=== PATIENT | male | born 1940 | race Caucasian/White ===

== ENCOUNTER 2017-02-08 22:54 | Inpatient (IN) | payer MEDICARE, MEDICAID ==
[~2017-02-08] VITALS: Ht 175.3 cm; Wt 110.2 kg
--- NOTE | 2017-02-08 22:59 | NUR ---
PATIENT BROUGHT IN BY RESCUE FROM HOME C/O SWELLING ON LEFT LOWER EXTREMITY,WEAKNESS, PT IS ALERT, ORIENTED X 4, NO RESP DISTRESS NOTED OR REPORTED UPON ASSESSMENT... MD AT BEDSIDE..
[2017-02-08] MEDS ORDERED: IV NORMAL SALINE 1000 ML BAG IV ONE (23:15)
[2017-02-08] MEDS ORDERED: VANCOMYCIN IV 1,000 MG in IV DEXTROSE 5% 250 ML IV ONE (23:15)
[2017-02-08] MEDS ORDERED: PIPERACILLIN SODIUM/TAZOBACTAM 3.375 G in IV DEXTROSE 5% 50 ML IV ONE (23:15)
[2017-02-08] MEDS ORDERED: AMIO200T2 PO (23:25)
[2017-02-08] MEDS ORDERED: FEBU40TA PO (23:25)
[2017-02-08] MEDS ORDERED: NEBI10TA2 PO (23:25)
[2017-02-08] MEDS ORDERED: INSU100V11 SUBCUT (23:25)
[2017-02-08] MEDS ORDERED: SIMV20TA6 PO (23:25)
[2017-02-08] MEDS ORDERED: APIX2.5T PO (23:25)
[2017-02-08] MEDS ORDERED: LEVO150T8 PO (23:25)
[2017-02-08] MEDS ORDERED: BLOO-140 IN (23:25)
[2017-02-08] MEDS ORDERED: FURO-151 PO (23:25)
[2017-02-08] MEDS ORDERED: CLOP75TA15 PO (23:25)
[2017-02-08] MEDS ORDERED: ASPI81TA31 PO (23:25)
[2017-02-08] MEDS ORDERED: FOLI0.8T23 PO (23:25)
[2017-02-08] MEDS ORDERED: DUTA0.5C PO (23:25)
[2017-02-08] MEDS ORDERED: AMLO5TAB2 PO (23:25)
[2017-02-08] MEDS ORDERED: PREG75CA PO (23:25)
[2017-02-08] MEDS ORDERED: LANTUS SUBCUT (23:25)
[2017-02-08] MEDS ORDERED: VALS80TA2 PO (23:25)
[2017-02-08] MEDS ORDERED: TAMS-3 PO (23:25)
[2017-02-08] MEDS ORDERED: VANCOMYCIN IV 200 ML ONE (23:34)
[2017-02-08 23:44] LABS: BASOPHILS % (AUTO) 0.5 % (0.0-2.0); EOSINOPHILS # (AUTO) 0.1 K/uL (0.0-0.7); EOSINOPHILS % (AUTO) 1.2 % (0.0-7.0); HEMATOCRIT 34.8 % (40-50); HEMOGLOBIN 10.9 G/DL (14.0-18.0); LYMPHOCYTES # (AUTO) 0.9 K/UL (0.8-4.8); LYMPHOCYTES % (AUTO) 17.7 % (20.5-51.5); MEAN CORPUSCULAR HEMOGLOBIN 28.7 UUG (27.0-31.0); MEAN CORPUSCULAR HGB CONC 31 g/dL (32.0-37.0); MONOCYTES # (AUTO) 0.6 K/UL (0.1-1.30); MONOCYTES % (AUTO) 11.9 % (0.0-11.0); NEUTROPHILS # (AUTO) 3.7 K/UL (1.8-8.9); NEUTROPHILS % (AUTO) 68.7 % (38.5-71.5); PLATELET COUNT (AUTO) 239 K/UL (150-450); RED BLOOD CELL COUNT(AUTO) 3.79 MIL/UL (4.7-6.1); WHITE BLOOD COUNT (AUTO) 5.3 K/UL (4.0-11.2)
[2017-02-08 23:53] LABS: ALANINE AMINOTRANSFERASE 29 U/L (16-63); ALKALINE PHOSPHATASE 58 U/L (50-136); ASPARTATE AMINOTRANSFERASE 22 U/L (15-37); BILIRUBIN,DIRECT < 0.1 mg/dL (0.0-0.2); BILIRUBIN,TOTAL 0.2 mg/dL (0.2-1.0); CARBON DIOXIDE 21 mmol/L (21-32); CHLORIDE 108 mmol/L (98-107); CREATININE 4.7 mg/dL (0.6-1.3); GLUCOSE 140 mg/dL (74-106); POTASSIUM 5.1 mmol/L (3.5-5.1); TOTAL PROTEIN, SERUM 7.3 g/dL (6.4-8.2); UREA NITROGEN, BLOOD 77 mg/dL (7-18)
[2017-02-09] MEDS ORDERED: MORPHINE SULFATE 2 MG/1 ML DISP.SYRIN IV PRN (01:15)
[2017-02-09] MEDS ORDERED: ONDANSETRON 4 MG/2 ML VIAL IV PRN (01:15)
[2017-02-09] MEDS ORDERED: LORAZEPAM 2 MG/1 ML VIAL IV PRN (01:15)
[2017-02-09] MEDS ORDERED: ACETAMINOPHEN 325 MG TABLET PO PRN (01:15)
[2017-02-09] MEDS ORDERED: VANCOMYCIN IV 200 ML IV ONE (01:15)
[2017-02-09] MEDS ORDERED: DEXTROSE 50% 50 ML DISP.SYRIN IV PRN (01:15)
[2017-02-09] MEDS ORDERED: PIPERACILLIN/TAZOBACTAM/D5W 50 ML IV ONE (01:18)
--- NOTE | 2017-02-09 02:00 | NUR ---
SBAR report received from CHARISSA Urbano RN.
--- NOTE | 2017-02-09 02:05 | NUR ---
Pt. admitted to TELE , under care of Dr. Gonzalez Kimbrough, Belongs List completed, pt is alert, oriented x 4, no resp distress noted or reported upon transfer assessment...
--- NOTE | 2017-02-09 03:00 | NUR ---
Admitted patient from ER via fawn, AAOx4, denies pain at thsi time. Routine admission care done. Plan of care initiated.
[2017-02-09 03:23] VITALS: BP 125/42
--- NOTE | 2017-02-09 03:30 | NUR ---
Vanco was given in ER, verified with nurse Sundeep.
[2017-02-09] MEDS: BLOOD SUGAR DIAGNOSTIC 1 EACH STRIP VI SCH ×4 (05:40→20:44)
[2017-02-09] MEDS ORDERED: MEROPENEM 1 G in IV NORMAL SALINE 100 ML IV SCH (06:00)
[2017-02-09] MEDS ORDERED: MEROPENEM 1 G VIAL IV ONE (06:12)
--- NOTE | 2017-02-09 06:38 | NUR ---
VSS. slept well. No complaint presented all night. All needs attended and met. No significant event reported all night. Continue current plan of care.
[2017-02-09 06:51] LABS: IRON, SERUM 58 ug/dL (50-175)
--- NOTE | 2017-02-09 08:00 | NUR ---
RESTING IN BED WITH EXERTIONAL SOB, ON 3L NC SATURATING 95%. AT BEDSIDE VERY SUPPORTIVE WITH CARE
[2017-02-09] MEDS ORDERED: CLOPIDOGREL 75 MG TABLET PO SCH (09:00)
[2017-02-09] MEDS ORDERED: TAMSULOSIN HCL 0.4 MG CAP.SR.24H PO SCH (09:00)
[2017-02-09] MEDS ORDERED: Medication Not On Formulary EA (Apixaban (Eliquis) 2.5 MG) PO SCH (09:00)
[2017-02-09] MEDS ORDERED: PANTOPRAZOLE SODIUM 40 MG VIAL IV SCH (09:00)
[2017-02-09] MEDS ORDERED: SIMVASTATIN 20 MG TABLET PO SCH (09:00)
[2017-02-09] MEDS ORDERED: Medication Not On Formulary EA (Pregabalin (Lyrica) 75 MG) PO SCH (09:00)
[2017-02-09] MEDS: ASPIRIN 81 MG TAB.CHEW PO SCH (09:55)
[2017-02-09] MEDS: DUTASTERIDE 0.5 MG CAPSULE PO SCH (09:55)
[2017-02-09] MEDS: FOLIC ACID/VITAMIN B COMP W-C TABLET PO SCH (09:55)
[2017-02-09] MEDS: AMIODARONE HCL 200 MG TABLET PO SCH (09:57)
[2017-02-09] MEDS: AMLODIPINE 5 MG TABLET PO SCH ×2 (09:58→16:39)
[2017-02-09] MEDS: LEVOTHYROXINE SODIUM 150 MCG TABLET PO SCH (09:59)
[2017-02-09] MEDS: PANTOPRAZOLE SODIUM 40 MG TABLET.DR PO SCH (10:01)
--- NOTE | 2017-02-09 10:30 | NUR ---
SEEN BY DR LANDAVERDE FOR NEPHRO CONSULT, SEE NOTES
[2017-02-09] MEDS ORDERED: APIXABAN 5 MG TABLET PO SCH (10:45)
[2017-02-09 10:59] LABS: CARBON DIOXIDE 19 mmol/L (21-32); CHLORIDE 111 mmol/L (98-107); CREATININE 4.1 mg/dL (0.6-1.3); GLUCOSE 146 mg/dL (74-106); POTASSIUM 4.9 mmol/L (3.5-5.1); UREA NITROGEN, BLOOD 68 mg/dL (7-18)
[2017-02-09 11:06] LABS: ALANINE AMINOTRANSFERASE 27 U/L (16-63); ALKALINE PHOSPHATASE 56 U/L (50-136); ASPARTATE AMINOTRANSFERASE 21 U/L (15-37); BILIRUBIN,TOTAL 0.2 mg/dL (0.2-1.0); CHOLESTEROL 125 mg/dL (<200); HDL CHOLESTEROL 44 mg/dL (40-60); MAGNESIUM 1.9 mg/dL (1.8-2.4); PHOSPHOROUS 4.2 mg/dL (2.5-4.9); TOTAL PROTEIN, SERUM 7.1 g/dL (6.4-8.2); TRIGLYCERIDES 164 MG/DL (30-150)
[2017-02-09 11:07] LABS: THYROID STIMULATING HORMONE 3.116 mIU/mL (0.358-3.740)
[2017-02-09 11:30] VITALS: BP 118/43
[2017-02-09] MEDS: INSULIN REGULAR, HUMAN 300 UNIT/3 ML VIAL SQ PRN ×2 (11:42→21:24)
--- NOTE | 2017-02-09 12:00 | NUR ---
CONTINUE IV ANTIBIOTIC NO ADVERSE REACTION
[2017-02-09] MEDS ORDERED: IV NS 1000 ML 1,000 ML IV PRN ×2 (12:15→19:15)
[2017-02-09 14:30] LABS: HEMATOCRIT 32.1 % (40-50); HEMOGLOBIN 10.1 G/DL (14.0-18.0)
--- NOTE | 2017-02-09 15:26 | NUR ---
CLINICAL PHARMACY NOTE: VANCOMYCIN PHARMACY TO DOSE Subjective: To start vancomycin in this 76 y/o gentleman for indication of "suspected infection." Pt is currently in ARF. Objective: height 175 cm weight 116 kg BUN 77 Scr 4.7 (ARF) wbc 5.3 temp 97.5 1gm vanco give in ER on 02/08 @ 2300 Assessment/Plan Due to ARF, will dose per level. As 1gm vanco was given late last night, will not dose today. Ordered random level with am labs tomorrow am. Will check level and dose per fall off level. Will continue monitoring for resolving Scr as well. Will continue to follow.
[2017-02-09 15:49] VITALS: BP 128/84
--- NOTE | 2017-02-09 16:12 | NUR ---
SEEN BY DR ROSAS SEE NOTES. PACED ON MONITOR
--- NOTE | 2017-02-09 19:45 | NUR ---
RECEIVED PATIENT LAYING COMFORTABLY IN BED. NO ACUTE DISTRESS NOTED. O2 2L NC. WAS JUST SEEN BY CHILD NURSE DR. GONZALEZ. SAFETY INITIATED. V/S STABLE. CALL LIGHT WITHIN REACH. PACEMAKER ON THE LEFT UPPER CHEST WALL. TELE AV PACING. WILL CONTINUE TO MONITOR.
[2017-02-09 20:00] VITALS: BP 132/51
[2017-02-09] MEDS: TAMSULOSIN HCL 0.4 MG CAP.SR.24H PO SCH (20:44)
[2017-02-09] MEDS: SIMVASTATIN 20 MG TABLET PO SCH (20:44)
[2017-02-09] MEDS: MEROPENEM 500 MG in IV NORMAL SALINE 50 ML IV SCH (21:00)
[2017-02-09] MEDS ORDERED: LINEZOLID IV 600 MG in PREMIXED 1 EACH IV SCH (21:00)
[2017-02-09 22:48] LABS: *BILIRUBIN,URIN NEGATIVE (NEGATIVE); *BLOOD, URINE NEGATIVE (NEGATIVE); *CLARITY,URINE CLEAR (CLEAR); *COLOR,URINE YELLOW (YELLOW); *KETONES,URINE NEGATIVE (NEGATIVE); *PROTEIN,URINE 1+ (NEGATIVE); *UROBILINOGEN,URINE 0.2 E.U./dl (NORMAL); LEUKOCYTE ESTERASE ,URINE NEGATIVE (NEGATIVE); NITRITE, URINE NEGATIVE (NEGATIVE); PH,URINE 5.5 (5.0-8.0); UGLUCOSE NEGATIVE (NEGATIVE)
[2017-02-09 22:54] LABS: *CREATININE,URINE 142.3 mg/dL (30-125)
[2017-02-09 23:00] LABS: BACTERIA,URINE FEW /HPF (NONE SEEN); RBC,URINE 0-3 /HPF (0-3); SQUAMOUS EPITHELIAL CELL,UR FEW /HPF (NONE SEEN); WBC,URINE 0-3 /HPF (0-3)
[2017-02-10 04:40] VITALS: BP 125/50
[2017-02-10] MEDS: LEVOTHYROXINE SODIUM 150 MCG TABLET PO SCH (06:14)
[2017-02-10] MEDS: PANTOPRAZOLE SODIUM 40 MG TABLET.DR PO SCH (06:14)
[2017-02-10 06:33] LABS: ALANINE AMINOTRANSFERASE 23 U/L (16-63); ALKALINE PHOSPHATASE 50 U/L (50-136); ASPARTATE AMINOTRANSFERASE 16 U/L (15-37); BILIRUBIN,TOTAL 0.2 mg/dL (0.2-1.0); CARBON DIOXIDE 22 mmol/L (21-32); CHLORIDE 114 mmol/L (98-107); GLUCOSE 117 mg/dL (74-106); MAGNESIUM 2.1 mg/dL (1.8-2.4); PHOSPHOROUS 3.7 mg/dL (2.5-4.9); POTASSIUM 5.2 mmol/L (3.5-5.1); TOTAL PROTEIN, SERUM 6.8 g/dL (6.4-8.2); UREA NITROGEN, BLOOD 64 mg/dL (7-18); VANCOMYCIN,RANDOM 7.1 ug/mL (18.0-26.0)
[2017-02-10] MEDS: BLOOD SUGAR DIAGNOSTIC 1 EACH STRIP VI SCH ×4 (06:57→22:49)
[2017-02-10 07:15] LABS: BASOPHILS % (AUTO) 0.3 % (0.0-2.0); EOSINOPHILS # (AUTO) 0.1 K/uL (0.0-0.7); EOSINOPHILS % (AUTO) 2.5 % (0.0-7.0); HEMATOCRIT 31.7 % (40-50); HEMOGLOBIN 10.1 G/DL (14.0-18.0); LYMPHOCYTES # (AUTO) 1.3 K/UL (0.8-4.8); LYMPHOCYTES % (AUTO) 24.4 % (20.5-51.5); MEAN CORPUSCULAR HEMOGLOBIN 29.6 UUG (27.0-31.0); MEAN CORPUSCULAR HGB CONC 32 g/dL (32.0-37.0); MEAN CORPUSCULAR VOLUME 92.9 FL (82.0-92.0); MONOCYTES # (AUTO) 0.6 K/UL (0.1-1.30); MONOCYTES % (AUTO) 11.3 % (0.0-11.0); NEUTROPHILS # (AUTO) 3.2 K/UL (1.8-8.9); NEUTROPHILS % (AUTO) 61.5 % (38.5-71.5); PLATELET COUNT (AUTO) 245 K/UL (150-450); RED BLOOD CELL COUNT(AUTO) 3.42 MIL/UL (4.7-6.1); WHITE BLOOD COUNT (AUTO) 5.3 K/UL (4.0-11.2)
--- NOTE | 2017-02-10 07:32 | NUR ---
PATIENT SLEPT INTERMITTENTLY T/O SHIFT. NO ACUTE DISTRESS NOTED. ALL SAFETY AND COMFORT MEASURES MAINTAINED T/O SHIFT. CALL LIGHT WITHIN REACH. PATIENT IS ON O2 2L NC. VSS. ALL NEEDS MET. ALL MEDS GIVEN ORDERED.
--- NOTE | 2017-02-10 08:00 | NUR ---
UP ON CHAIR FOR BREAKFAST TOLERATED WELL BUT SLIGHT SOB AND WHEEZING ON EXERTION. CONTINUE 2L NC
[2017-02-10] MEDS: ASPIRIN 81 MG TAB.CHEW PO SCH (08:45)
[2017-02-10] MEDS: MEROPENEM 500 MG in IV NORMAL SALINE 50 ML IV SCH (08:45)
[2017-02-10] MEDS: DUTASTERIDE 0.5 MG CAPSULE PO SCH (08:45)
[2017-02-10] MEDS: FOLIC ACID/VITAMIN B COMP W-C TABLET PO SCH (08:45)
[2017-02-10] MEDS: CLOPIDOGREL 75 MG TABLET PO SCH (08:45)
[2017-02-10] MEDS: AMIODARONE HCL 200 MG TABLET PO SCH (08:46)
[2017-02-10] MEDS: AMLODIPINE 5 MG TABLET PO SCH (08:46)
[2017-02-10] MEDS ORDERED: VANCOMYCIN IV 2,000 MG in IV DEXTROSE 5% 500 ML IV ONE (10:00)
--- NOTE | 2017-02-10 10:19 | NUR ---
KIDNEY US DONE AWAITING HARD COPY, COMPLETE BED BATH DONE
[2017-02-10 11:14] LABS: *OCCULT BLOOD STOOL NEGATIVE (NEGATIVE)
[2017-02-10 11:41] VITALS: BP 140/48
[2017-02-10] MEDS: INSULIN REGULAR, HUMAN 300 UNIT/3 ML VIAL SQ PRN ×2 (11:53→16:42)
--- NOTE | 2017-02-10 12:32 | NUR ---
SEEN BY DR GAINES SEE NOTES
--- NOTE | 2017-02-10 14:00 | NUR ---
CLINICAL PHARMACY NOTE: VANCOMYCIN PHARMACY TO DOSE Subjective: To continue vancomycin in this 76 y/o gentleman for indication of "suspected infection." Pt is currently in ARF. Objective: height 175 cm weight 116 kg BMI 37 BUN 64 Scr 3.0 (ARF) wbc 5.3 temp 97.8 Random: 7.1 (today with am labs) Assessment/Plan ARF continues to resolve, will dose per level for now. Based on random today, will dose 2gm one time based on weight. Ordered another random with am labs tomorrow. Will check level and continue to dose per fall off level. Will continue monitoring for resolving Scr as well. Will continue to follow.
[2017-02-10] MEDS: predniSONE 20 MG TABLET PO SCH (14:37)
[2017-02-10 15:35] VITALS: BP 140/53
[2017-02-10] MEDS: ALBUTEROL SULFATE 1.25 MG/3 ML NEBU NEB PRN ×2 (16:18→19:47)
[2017-02-10] MEDS: VALSARTAN 80 MG TABLET PO SCH (16:39)
--- NOTE | 2017-02-10 17:47 | NUR ---
REMAINS STABLE NO SIGNS OF DISTRESS, STILL WITH EXERTIONAL WHEEZING CONTINUE WITH BREATHING TX ORDERED
[2017-02-10] MEDS: IPRATROPIUM BROMIDE 0.5 MG/2.5 ML NEBU NEB PRN (19:47)
[2017-02-10 19:53] VITALS: BP 153/56
[2017-02-10] MEDS: SIMVASTATIN 20 MG TABLET PO SCH (20:34)
[2017-02-10] MEDS: TAMSULOSIN HCL 0.4 MG CAP.SR.24H PO SCH (20:34)
[2017-02-10] MEDS: MEROPENEM 1 G in IV NORMAL SALINE 100 ML IV SCH (20:34)
[2017-02-10 20:53] LABS: *URINE TOTAL PROTEIN RANDOM 55.1 mg/dL (<150/24HR)
[2017-02-10] MEDS: INSULIN REGULAR, HUMAN 300 UNITS/3 ML VIAL SQ PRN (22:51)
[2017-02-11] MEDS: ALBUTEROL SULFATE 1.25 MG/3 ML NEBU NEB PRN ×4 (00:30→22:56)
[2017-02-11] MEDS: IPRATROPIUM BROMIDE 0.5 MG/2.5 ML NEBU NEB PRN ×4 (00:30→22:56)
--- NOTE | 2017-02-11 00:30 | NUR ---
PT CALLED COMPLAINED OF SOB AND WANTED TO SIT AT THE EDGE OF BED,PT IS ON OXYGEN 2 LITERS,SPO2 96% CALLED RT TO GIVE BREATHING TREATMENT.PT VERBALIZED FEELING MUCH BETTER ,VERBALIZED THAT HE IS NOT ABLE TO SLEEP BEEN TURNING TO FIND COMFORT IN BED,OFFERED ATIVAN TO HELP HIM SLEEP AND PROBABLY PT IS FEELING ANXIOUS,THATS WHY HE CANT SLEEP, TRANSLATED BY RT, BUT PT REFUSED AND SAYS HE WILL TRY TO SLEEP. SPO2 AFTER TREATMENT IS 99%.WILL CONTINUE TO MONITOR.DENIES ANY CHEST PAIN. WILL CONTINUE TO MONITOR.
[2017-02-11 04:14] VITALS: BP 123/51
--- NOTE | 2017-02-11 05:47 | NUR ---
PT DIDN'T SLEEP WELL LAST NIGHT WOKE UP 0300 AND JUST SITS AT THE EDGE OF BED,DENIES ANY CHEST PAIN, NO SOB.PT STATED STILL NOT ABLE TO SLEEP. BUT REFUSED ATIVAN. WILL CONTINUE TO MONITOR,VSS,AFEBRILE
[2017-02-11] MEDS: PANTOPRAZOLE SODIUM 40 MG TABLET.DR PO SCH (06:21)
[2017-02-11] MEDS: LEVOTHYROXINE SODIUM 150 MCG TABLET PO SCH (06:21)
[2017-02-11] MEDS: BLOOD SUGAR DIAGNOSTIC 1 EACH STRIP VI SCH ×4 (06:23→22:23)
[2017-02-11 06:49] LABS: BASOPHILS % (AUTO) 0.1 % (0.0-2.0); EOSINOPHILS % (AUTO) 0.1 % (0.0-7.0); HEMATOCRIT 34.1 % (40-50); LYMPHOCYTES # (AUTO) 0.7 K/UL (0.8-4.8); LYMPHOCYTES % (AUTO) 10.7 % (20.5-51.5); MEAN CORPUSCULAR HEMOGLOBIN 29.9 UUG (27.0-31.0); MEAN CORPUSCULAR HGB CONC 32 g/dL (32.0-37.0); MEAN CORPUSCULAR VOLUME 92.5 FL (82.0-92.0); MONOCYTES # (AUTO) 0.4 K/UL (0.1-1.30); MONOCYTES % (AUTO) 7.2 % (0.0-11.0); NEUTROPHILS # (AUTO) 5.1 K/UL (1.8-8.9); NEUTROPHILS % (AUTO) 81.9 % (38.5-71.5); PLATELET COUNT (AUTO) 252 K/UL (150-450); RED BLOOD CELL COUNT(AUTO) 3.69 MIL/UL (4.7-6.1); WHITE BLOOD COUNT (AUTO) 6.2 K/UL (4.0-11.2)
--- NOTE | 2017-02-11 07:15 | NUR ---
PT IS SLEEPING IN BED. SOME COUGHING NOTED, REFUSED BREATHING TREATMENT. NO PAIN NOTED. ALL SAFETY NEEDS ARE MET. IV INTACT/PATENT. WILL CONTINUE TO MONITOR.
[2017-02-11 07:31] LABS: BAND % (MANUAL) 1 % (0-10); LYMPHOCYTES % (MANUAL) 12 % (20-40); MONOCYTES % (MANUAL) 2 % (2-10); NEUTROPHILS % (MANUAL) 85 % (42-75)
[2017-02-11 07:40] LABS: ALANINE AMINOTRANSFERASE 65 U/L (16-63); ALKALINE PHOSPHATASE 89 U/L (50-136); ASPARTATE AMINOTRANSFERASE 47 U/L (15-37); BILIRUBIN,TOTAL 0.3 mg/dL (0.2-1.0); CARBON DIOXIDE 22 mmol/L (21-32); CHLORIDE 111 mmol/L (98-107); CREATININE 2.2 mg/dL (0.6-1.3); GLUCOSE 217 mg/dL (74-106); MAGNESIUM 2.1 mg/dL (1.8-2.4); PHOSPHOROUS 2.3 mg/dL (2.5-4.9); TOTAL PROTEIN, SERUM 7.6 g/dL (6.4-8.2); UREA NITROGEN, BLOOD 54 mg/dL (7-18); VANCOMYCIN,RANDOM 19.2 ug/mL (18.0-26.0)
[2017-02-11] MEDS: predniSONE 20 MG TABLET PO SCH (08:38)
[2017-02-11] MEDS: ASPIRIN 81 MG TAB.CHEW PO SCH (08:38)
[2017-02-11] MEDS: DUTASTERIDE 0.5 MG CAPSULE PO SCH (08:38)
[2017-02-11] MEDS: MEROPENEM 1 G in IV NORMAL SALINE 100 ML IV SCH ×2 (08:39→20:42)
[2017-02-11] MEDS: AMIODARONE HCL 200 MG TABLET PO SCH (08:39)
[2017-02-11] MEDS: FOLIC ACID/VITAMIN B COMP W-C TABLET PO SCH (08:39)
[2017-02-11] MEDS: VALSARTAN 80 MG TABLET PO SCH ×2 (08:40→17:25)
[2017-02-11] MEDS: CLOPIDOGREL 75 MG TABLET PO SCH (08:40)
[2017-02-11] MEDS: INSULIN REGULAR, HUMAN 300 UNIT/3 ML VIAL SQ PRN ×3 (08:46→17:38)
[2017-02-11 10:09] LABS: HEPATITIS A AB, TOTAL Positive (Negative); HEPATITIS B SURFACE AB Reactive (.); HEPATITIS B SURFACE AG Negative (Negative)
[2017-02-11] MEDS ORDERED: SODIUM POLYSTYRENE SULFONATE 15 G/60 ML LIQUID UDC PO ONE (11:00)
[2017-02-11] MEDS ORDERED: NEUTRA PHOS PACKET PO ONE (11:00)
--- NOTE | 2017-02-11 11:16 | NUR ---
ADVISED DR. MANSFIELD ABOUT SBP IN 180'S, PER "RE-CHECK IN 20 MIN, IF STILL HIGHG PAGE ME". Addendum: 02/11/17 at 1117 by NOLAN SCHOFIELD RN ADVISED THAT PT'S WOULD LIKE TO TALK TO DR. CASTREJON PER DR. MANSFIELD
[2017-02-11 11:39] VITALS: BP 155/62
[2017-02-11 15:29] VITALS: BP 160/59
--- NOTE | 2017-02-11 15:51 | NUR ---
CLINICAL PHARMACY NOTE: VANCOMYCIN PHARMACY TO DOSE Subjective: To continue vancomycin in this 76 y/o gentleman for indication of "suspected infection." Pt is currently in ARF. Objective: height 175 cm weight 116 kg BMI 37 BUN 54 Scr 2.2 (ARF) wbc 6.2 temp 97.8 Random: 19.2 (today with am labs) Assessment/Plan ARF continues to resolve, will dose per level for now. Based on random today, will dose 2gm one time based on weight, due at 2100 tonight. Ordered another random with due for 02/13 @0600. Will check level at that time and continue to dose per fall off level. Will continue monitoring for resolving Scr as well. Will continue to follow.
--- NOTE | 2017-02-11 16:28 | NUR ---
PER DR. MANSFIELD HYDRALAZINE 25MG Q8H PO PRN FOR SBP MORE THAN 150 T/O
[2017-02-11] MEDS ORDERED: hydrALAZINE HCL 25 MG TABLET PO PRN (16:30)
--- NOTE | 2017-02-11 18:20 | NUR ---
PT COUGHING, ASKED HOW IS THE PT. PT JUST NODDED, CHECKED 02 SAT AND HR. 02 SAT IS 96% ON 2L AND HR IS 60.
--- NOTE | 2017-02-11 19:15 | NUR ---
RECEIVED PATIENT ALERT ORIENTED, ON OXYGEN 2LITER NC, NO SOB NO CHEST PAIN NOTED, AT BEDSIDE, CONT TO MONITOR.
[2017-02-11 19:39] VITALS: BP 113/60
[2017-02-11] MEDS ORDERED: ASPIRIN 325 MG TABLET PO ONE (19:45)
[2017-02-11] MEDS ORDERED: NITROGLYCERIN 0.3 MG/TAB BOTTLE SL PRN (19:45)
--- NOTE | 2017-02-11 19:53 | NUR ---
PT IS LAYING IN BED, NO PAIN NOTED/REPORTED. RT IS IN THE ROOM, PT REPORTS PT HAS LOW O2 LEVEL, ADVISED THE NOC NURSE THAT THE PT HAD 02 SAT AT 96% ON 2L. IV INTACT/PATENT . ALL SAFETY NEEDS ARE MET. BY THE BEDSIDE. DR DONAL GONZALEZED TO THE PT.
[2017-02-11 20:00] VITALS: BP 113/60
[2017-02-11] MEDS ORDERED: NITROGLYCERIN 0.4 MG/TAB BOTTLE SL PRN (20:00)
--- NOTE | 2017-02-11 20:00 | NUR ---
PATIENT SEEN BY DR ROSAS DUE COMPLAIN OF SOB EXACERBATION, WITH NEW ORDER, SEEN ALSO BY DR SCHMIDT.
[2017-02-11 20:06] LABS: BASOPHILS % (AUTO) 0.4 % (0.0-2.0); EOSINOPHILS % (AUTO) 0.2 % (0.0-7.0); HEMATOCRIT 38.2 % (40-50); HEMOGLOBIN 12.1 G/DL (14.0-18.0); LYMPHOCYTES # (AUTO) 0.5 K/UL (0.8-4.8); LYMPHOCYTES % (AUTO) 6.4 % (20.5-51.5); MEAN CORPUSCULAR HEMOGLOBIN 29.5 UUG (27.0-31.0); MEAN CORPUSCULAR HGB CONC 32 g/dL (32.0-37.0); MEAN CORPUSCULAR VOLUME 92.8 FL (82.0-92.0); MONOCYTES # (AUTO) 0.3 K/UL (0.1-1.30); MONOCYTES % (AUTO) 4.1 % (0.0-11.0); NEUTROPHILS # (AUTO) 7.5 K/UL (1.8-8.9); NEUTROPHILS % (AUTO) 88.9 % (38.5-71.5); PLATELET COUNT (AUTO) 292 K/UL (150-450); RED BLOOD CELL COUNT(AUTO) 4.12 MIL/UL (4.7-6.1); WHITE BLOOD COUNT (AUTO) 8.3 K/UL (4.0-11.2)
--- NOTE | 2017-02-11 20:06 | NUR ---
DR ROSAS ORDER ASA 325MG PO, AND NITRO STAT 0.4MG SL STAT.
[2017-02-11] MEDS ORDERED: FUROSEMIDE 40 MG/4 ML VIAL IV ONE (20:15)
[2017-02-11] MEDS ORDERED: NITROGLYCERIN OINT 1 GM PACKET TP ONE (20:15)
[2017-02-11 20:17] LABS: CARBON DIOXIDE 22 mmol/L (21-32); CHLORIDE 112 mmol/L (98-107); CREATININE 2.3 mg/dL (0.6-1.3); GLUCOSE 288 mg/dL (74-106); UREA NITROGEN, BLOOD 53 mg/dL (7-18)
--- NOTE | 2017-02-11 20:23 | NUR ---
BLADDER SCAN RESULTS 257, NOTIFY DR BRIDGES WITH NO NEW ORDER AT THIS TIME.
[2017-02-11] MEDS ORDERED: VANCOMYCIN IV 2,000 MG in IV DEXTROSE 5% 500 ML IV ONE (21:00)
[2017-02-11] MEDS ORDERED: DEXTROSE 50% 50 ML DISP.SYRIN IV ONE (21:30)
[2017-02-11] MEDS ORDERED: INSULIN REGULAR, HUMAN 300 UNIT/3 ML VIAL IV ONE (21:30)
[2017-02-11] MEDS: TAMSULOSIN HCL 0.4 MG CAP.SR.24H PO SCH (22:05)
[2017-02-11] MEDS: SIMVASTATIN 20 MG TABLET PO SCH (22:05)
[2017-02-11] MEDS ORDERED: DEXTROSE 50% 50 ML DISP.SYRIN ONE (22:18)
[2017-02-11] MEDS: INSULIN REGULAR, HUMAN 300 UNITS/3 ML VIAL SQ PRN (22:54)
--- NOTE | 2017-02-11 22:54 | NUR ---
BLOOD SUGAR 280 AT 2100, SLIDING SCALE NOT GIVEN PER MD ORDER, MD HAS ORDER FOR REGULAR INSULIN 10 UNITS.
[2017-02-12] VITALS (9 sets, daily range): BP systolic 112–172; BP diastolic 40–71
[2017-02-12] MEDS: INSULIN DETEMIR 300 UNIT/3 ML CARTRIDGE SQ SCH ×2 (00:42→21:08)
--- NOTE | 2017-02-12 00:59 | NUR ---
DR ROSAS HAS NEW ORDER LEVIMER 10 UNITS SQ EVERY HS.
[2017-02-12] MEDS: PANTOPRAZOLE SODIUM 40 MG TABLET.DR PO SCH (06:16)
[2017-02-12] MEDS: LEVOTHYROXINE SODIUM 150 MCG TABLET PO SCH (06:16)
[2017-02-12] MEDS: BLOOD SUGAR DIAGNOSTIC 1 EACH STRIP VI SCH ×4 (06:23→20:53)
[2017-02-12 06:45] LABS: ALANINE AMINOTRANSFERASE 190 U/L (16-63); ALKALINE PHOSPHATASE 153 U/L (50-136); ASPARTATE AMINOTRANSFERASE 120 U/L (15-37); BILIRUBIN,TOTAL 0.2 mg/dL (0.2-1.0); CARBON DIOXIDE 22 mmol/L (21-32); CHLORIDE 111 mmol/L (98-107); CREATININE 2.1 mg/dL (0.6-1.3); GLUCOSE 280 mg/dL (74-106); MAGNESIUM 1.9 mg/dL (1.8-2.4); PHOSPHOROUS 3.4 mg/dL (2.5-4.9); POTASSIUM 5.6 mmol/L (3.5-5.1); UREA NITROGEN, BLOOD 49 mg/dL (7-18)
--- NOTE | 2017-02-12 06:49 | NUR ---
PATIENT SLEPT ON AND OFF, NO SOB NO CHEST PAIN, DENIES PAIN, CONT ON OXYGEN 10 LITERS VIA MASK FOR SOB ON EXERTION, WITH EPISODES OF ANXIETY, RESTLESSNESS REMOVING TELE BOXES/PROVES, CONT TO ORIENT, ASSISTED WITH TOILETING, VOIDING WELL, CONT TO MONITOR. NO ADVERSE REACTION FROM ATIVAN, CALL LIGHT WITHIN REACH.
--- NOTE | 2017-02-12 06:53 | NUR ---
PATIENT OXYGEN SAT BET 96-98% , EPISODE OF SOB DURING EXCERTION, CONT TO MONITOR.
[2017-02-12 06:55] LABS: BASOPHILS % (AUTO) 0.3 % (0.0-2.0); EOSINOPHILS % (AUTO) 0.3 % (0.0-7.0); HEMATOCRIT 33.7 % (40-50); HEMOGLOBIN 10.9 G/DL (14.0-18.0); LYMPHOCYTES # (AUTO) 0.9 K/UL (0.8-4.8); LYMPHOCYTES % (AUTO) 11.9 % (20.5-51.5); MEAN CORPUSCULAR HEMOGLOBIN 29.7 UUG (27.0-31.0); MEAN CORPUSCULAR HGB CONC 32 g/dL (32.0-37.0); MONOCYTES # (AUTO) 0.7 K/UL (0.1-1.30); MONOCYTES % (AUTO) 9.2 % (0.0-11.0); NEUTROPHILS # (AUTO) 5.6 K/UL (1.8-8.9); NEUTROPHILS % (AUTO) 78.3 % (38.5-71.5); PLATELET COUNT (AUTO) 263 K/UL (150-450); RED BLOOD CELL COUNT(AUTO) 3.67 MIL/UL (4.7-6.1); WHITE BLOOD COUNT (AUTO) 7.2 K/UL (4.0-11.2)
--- NOTE | 2017-02-12 07:20 | NUR ---
PATIENT TROPONIN LEVEL 0.429, DR. SCHMIDT NOTIFY WITH NO NEW ORDER. CONT TO MONITOR.
[2017-02-12] MEDS: INSULIN REGULAR, HUMAN 300 UNIT/3 ML VIAL SQ PRN ×3 (08:17→16:36)
[2017-02-12] MEDS: ASPIRIN 81 MG TAB.CHEW PO SCH (08:17)
[2017-02-12] MEDS: predniSONE 20 MG TABLET PO SCH (08:18)
[2017-02-12] MEDS: DUTASTERIDE 0.5 MG CAPSULE PO SCH (08:18)
[2017-02-12] MEDS: CLOPIDOGREL 75 MG TABLET PO SCH (08:18)
[2017-02-12] MEDS: FOLIC ACID/VITAMIN B COMP W-C TABLET PO SCH (08:18)
[2017-02-12] MEDS: AMIODARONE HCL 200 MG TABLET PO SCH (08:20)
[2017-02-12] MEDS: VALSARTAN 80 MG TABLET PO SCH (08:20)
[2017-02-12] MEDS ORDERED: INSULIN REGULAR, HUMAN 300 UNIT/3 ML VIAL IV ONE (09:15)
[2017-02-12] MEDS ORDERED: DEXTROSE 50% 50 ML DISP.SYRIN IV ONE (09:15)
[2017-02-12] MEDS: MEROPENEM 1 G in IV NORMAL SALINE 100 ML IV SCH ×2 (09:33→20:54)
[2017-02-12] MEDS ORDERED: methylPREDNISolone SOD SUCC 125 MG/2 ML VIAL IV ONE (10:15)
--- NOTE | 2017-02-12 10:25 | NUR ---
PATIENT WAS SEEN AND EXAMINED BY DR GODFREY WITH NEW ORDERS AND NOTED.
--- NOTE | 2017-02-12 10:30 | NUR ---
ORDER FOR V-Q SCAN RECEIVED AND NOTED PATIENT AWARE AND SIGNED CONSCENT FOR THE TEST.
[2017-02-12] MEDS: FUROSEMIDE 20 MG/2 ML VIAL IV SCH ×2 (11:01→20:48)
[2017-02-12] MEDS: AMLODIPINE 5 MG TABLET PO SCH ×2 (11:05→21:04)
--- NOTE | 2017-02-12 11:32 | NUR ---
HEPLOCK INSERTED TO HIS LEFT WRIST IN PREPARATION FOR THE VQ SCAN ORDERED.
--- NOTE | 2017-02-12 11:45 | NUR ---
PATIENT PICKED UP BY BED TO THE NUCLEAR SCAN FOR THE V-Q SCAN ORDERED WITH O2 PATIENT HAS SOBE ALERT ORIENTED AT THIS TIME.
--- NOTE | 2017-02-12 13:10 | NUR ---
PATIENT RETURNED FROM THE V-Q SCAN AND APPARENTLY PATIENT HAD NEED FOR CODE BLUE WHILE IN THE BASEMENT BUT WHEN HE CAME UP HERE HE IS ALERT ORIENTED WITH O2 AT 3L/M BY NASAL CANULLA WITH SATS OD 97%.BLOOD SUGAR WAS 266 WITH COVERAGE ORDERED WITH NO S/S OF HYPO/HYPERGLYCEMIC REACTIONS AT THIS TIME.BLOOD PRESSURE IS ELEVATED ROUTINE BLOOD PRESSURE MEDICATIONS GIVEN ORDERED.MADE COMFORTABLE AND WILL CONTINUE TO OBSERVE.
[2017-02-12] MEDS: IPRATROPIUM BROMIDE 0.5 MG/2.5 ML NEBU NEB SCH ×3 (13:13→19:30)
[2017-02-12] MEDS: ALBUTEROL SULFATE 1.25 MG/3 ML NEBU NEB SCH ×3 (13:13→19:30)
[2017-02-12] MEDS: hydrALAZINE HCL 50 MG TABLET PO SCH ×2 (13:18→22:22)
--- NOTE | 2017-02-12 14:54 | NUR ---
CLINICAL PHARMACY NOTE: VANCOMYCIN PHARMACY TO DOSE Subjective: To continue vancomycin in this 76 y/o gentleman for indication of "suspected infection(early sepsis possible due to HCAP/sin infection). Pt is currently in ARF. Objective: height 175 cm weight 116 kg BMI 37 BUN 49 Scr 2.1 (ARF) wbc 7.2 temp 98.4 Random: 19.2 (today with am labs) Assessment/Plan ARF continues to resolve, will dose per level for now. Vancomycin 2gm one time x1 was given yesterday at 2100. Ordered another random with due for 02/13 @0600. Will check level at that time and continue to dose per fall off level. Will continue monitoring for resolving Scr as well. Will continue to follow.
--- NOTE | 2017-02-12 19:00 | NUR ---
RECEIVED PATIENT IN BED, NO SOB NO CHEST PAIN NOTED, VOIDING WELL, A PACING 60, BP SLIGHTLY ELEVATED, DR MANSFIELD AWARE, CONT TO MONITOR, CONT ON HHN FOR SOB AND COUGHING, CONT TO MONITOR.
[2017-02-12] MEDS: SIMVASTATIN 20 MG TABLET PO SCH (21:04)
[2017-02-12] MEDS: TAMSULOSIN HCL 0.4 MG CAP.SR.24H PO SCH (21:04)
[2017-02-12] MEDS: INSULIN REGULAR, HUMAN 300 UNITS/3 ML VIAL SQ PRN (21:07)
[2017-02-13 00:02] VITALS: BP 168/70
[2017-02-13] MEDS: ALBUTEROL SULFATE 1.25 MG/3 ML NEBU NEB PRN (02:32)
[2017-02-13] MEDS: IPRATROPIUM BROMIDE 0.5 MG/2.5 ML NEBU NEB PRN (02:33)
[2017-02-13 04:00] VITALS: BP 168/67
[2017-02-13] MEDS: LEVOTHYROXINE SODIUM 150 MCG TABLET PO SCH (06:04)
[2017-02-13] MEDS: BLOOD SUGAR DIAGNOSTIC 1 EACH STRIP VI SCH ×4 (06:04→22:00)
[2017-02-13] MEDS: hydrALAZINE HCL 50 MG TABLET PO SCH ×3 (06:04→23:11)
[2017-02-13] MEDS: PANTOPRAZOLE SODIUM 40 MG TABLET.DR PO SCH (06:04)
[2017-02-13 06:37] LABS: BASOPHILS % (AUTO) 0.2 % (0.0-2.0); EOSINOPHILS % (AUTO) 0.3 % (0.0-7.0); HEMATOCRIT 33.7 % (40-50); HEMOGLOBIN 10.9 G/DL (14.0-18.0); LYMPHOCYTES # (AUTO) 0.8 K/UL (0.8-4.8); LYMPHOCYTES % (AUTO) 11.4 % (20.5-51.5); MEAN CORPUSCULAR HEMOGLOBIN 29.6 UUG (27.0-31.0); MEAN CORPUSCULAR HGB CONC 32 g/dL (32.0-37.0); MEAN CORPUSCULAR VOLUME 91.9 FL (82.0-92.0); MONOCYTES # (AUTO) 0.6 K/UL (0.1-1.30); MONOCYTES % (AUTO) 8.5 % (0.0-11.0); NEUTROPHILS # (AUTO) 5.9 K/UL (1.8-8.9); NEUTROPHILS % (AUTO) 79.6 % (38.5-71.5); PLATELET COUNT (AUTO) 255 K/UL (150-450); RED BLOOD CELL COUNT(AUTO) 3.67 MIL/UL (4.7-6.1); WHITE BLOOD COUNT (AUTO) 7.3 K/UL (4.0-11.2)
[2017-02-13 06:42] LABS: ALANINE AMINOTRANSFERASE 139 U/L (16-63); ALKALINE PHOSPHATASE 122 U/L (50-136); ASPARTATE AMINOTRANSFERASE 49 U/L (15-37); BILIRUBIN,TOTAL 0.3 mg/dL (0.2-1.0); CARBON DIOXIDE 24 mmol/L (21-32); CHLORIDE 109 mmol/L (98-107); CREATININE 1.8 mg/dL (0.6-1.3); GLUCOSE 250 mg/dL (74-106); MAGNESIUM 1.7 mg/dL (1.8-2.4); PHOSPHOROUS 2.7 mg/dL (2.5-4.9); POTASSIUM 4.8 mmol/L (3.5-5.1); TOTAL PROTEIN, SERUM 6.8 g/dL (6.4-8.2); UREA NITROGEN, BLOOD 47 mg/dL (7-18)
--- NOTE | 2017-02-13 06:46 | NUR ---
PATIENT SLEPT MOST OF THE NIGHT, NO SOB NO CHEST PAIN, A PACING 60, COMPLAIN OF MILD PAIN GIVEN TYLENOL 650MG PO WITH HELP. NO S/S OF HYPO/HYPERGLYCEMIA NOTED, BP SLIGHTLY ELEVATED BUT ASYMPTOMATIC, CONT TO MONITOR.
[2017-02-13] MEDS ORDERED: PANTOPRAZOLE SODIUM 40 MG TABLET.DR PO SCH (07:00)
[2017-02-13] MEDS: ALBUTEROL SULFATE 1.25 MG/3 ML NEBU NEB SCH ×4 (07:32→19:07)
[2017-02-13] MEDS: IPRATROPIUM BROMIDE 0.5 MG/2.5 ML NEBU NEB SCH ×4 (07:32→19:07)
[2017-02-13] MEDS: INSULIN REGULAR, HUMAN 300 UNIT/3 ML VIAL SQ PRN ×3 (07:43→17:03)
[2017-02-13] MEDS: ASPIRIN EC 81 MG TABLET.DR PO SCH (08:17)
[2017-02-13] MEDS: CLOPIDOGREL 75 MG TABLET PO SCH (08:17)
[2017-02-13] MEDS: FOLIC ACID/VITAMIN B COMP W-C TABLET PO SCH (08:17)
[2017-02-13] MEDS: DUTASTERIDE 0.5 MG CAPSULE PO SCH (08:17)
[2017-02-13] MEDS: predniSONE 20 MG TABLET PO SCH (08:17)
[2017-02-13] MEDS: AMIODARONE HCL 200 MG TABLET PO SCH (08:27)
[2017-02-13] MEDS: FUROSEMIDE 20 MG/2 ML VIAL IV SCH ×2 (08:29→21:45)
[2017-02-13] MEDS: AMLODIPINE 5 MG TABLET PO SCH ×2 (08:30→21:44)
--- NOTE | 2017-02-13 08:30 | NUR ---
DOZING OFF AND ON ALERT AND ORIENTED WHEN AWAKE.REMAIN ON O2 AT 3L/M BY NASAL CANNULA WITH SOME LABORED BREATHING WITH HAND HELD NEBULIZER ORDERED AND HELPFUL DUE INSULIN PER SLIDING SCALE GIVEN WITH NO S/S OF HYPO/HYPERGLYCEMIC REACTIONS AT THIS TIME.MADE COMFORTABLE AND WILL CONTINUE TO OBSERVE.
[2017-02-13] MEDS: MEROPENEM 1 G in IV NORMAL SALINE 100 ML IV SCH (08:31)
[2017-02-13] MEDS ORDERED: INSULIN DETEMIR 300 UNIT/3 ML CARTRIDGE SQ ONE (10:23)
[2017-02-13] MEDS ORDERED: MAGNESIUM SULFATE/D5W 100 ML IV SCH (11:30)
--- NOTE | 2017-02-13 11:30 | NUR ---
DR GODFREY HERE SEEN PATIENT WITH NO NEW ORDERS AT THIS TIME.
[2017-02-13 11:42] VITALS: BP 170/65
--- NOTE | 2017-02-13 12:35 | NUR ---
CLINICAL PHARMACY NOTE: VANCOMYCIN PHARMACY TO DOSE Subjective: To continue vancomycin in this 76 y/o gentleman for indication of "suspected infection(early sepsis possible due to HCAP/sin infection). Pt is currently in ARF. Objective: height 175 cm weight 116 kg BMI 37 BUN 47 Scr 1.8 (ARF) wbc 7.3 temp 98 Random: 19.8 (today with am labs) Assessment/Plan ARF continues to resolve, will dose per level for now. Will give Vancomycin 2gm one time x1 tonight at 2200 (informed RN ok to give). Pharmacy shall review scr in am & decide when to order next random level for further dosing. Will continue to follow.
--- NOTE | 2017-02-13 14:19 | NUR ---
DR ROSAS HERE AND HE SAW THE PATIENTS BILATERAL LOWER LEGS WITH NEW ORDERS AND NOTED.
[2017-02-13] MEDS: SILVER SULFADIAZINE 1% CREAM 50 GM TP SCH ×2 (14:53→21:48)
[2017-02-13 16:08] VITALS: BP 156/61
--- NOTE | 2017-02-13 18:13 | NUR ---
PATIENT SEEN AND EXAMINED BY DR SCHMIDT WITH ORDER TO DISCONTINUE TELEMETRY AND NOTED.
[2017-02-13 21:00] VITALS: BP 159/54
[2017-02-13] MEDS ORDERED: INSULIN DETEMIR 300 UNIT/3 ML CARTRIDGE SQ SCH (21:00)
[2017-02-13] MEDS: TAMSULOSIN HCL 0.4 MG CAP.SR.24H PO SCH (21:44)
[2017-02-13] MEDS: SIMVASTATIN 20 MG TABLET PO SCH (21:44)
[2017-02-13] MEDS: INSULIN REGULAR, HUMAN 300 UNITS/3 ML VIAL SQ PRN (21:54)
[2017-02-13] MEDS ORDERED: VANCOMYCIN IV 2,000 MG in IV DEXTROSE 5% 500 ML IV ONE (22:00)
[2017-02-13] MEDS ORDERED: CEFTAZIDIME 1 G VIAL ONE (22:58)
[2017-02-13] MEDS: CEFTAZIDIME 1 G in IV DEXTROSE 5% 50 ML IV SCH (23:10)
--- NOTE | 2017-02-14 04:00 | NUR ---
PERFORMED WOUND TREATMENT/DRESSING CHANGE ON BILATERAL LOWER EXTREMITIES ORDERED. CLEANSED WITH NS, APPLIED SSD 1%, COVERED WITH KERLIX. PT TOLERATED PROCEDURE WELL, IN NO ACUTE DISTRESS. WILL CONTINUE TO MONITOR.
[2017-02-14 04:15] VITALS: BP 164/58
[2017-02-14] MEDS: hydrALAZINE HCL 50 MG TABLET PO SCH ×3 (04:45→22:09)
--- NOTE | 2017-02-14 06:06 | NUR ---
PT SLEPT INTERMITTENTLY, IN NO ACUTE DISTRESS. IV ANTIBIOTICS ADMINISTERED ORDERED, NO ADVERSE REACTION NOTED. ACCUCHECKS ORDERED, NO S/S HYPO/HYPERGLYCEMIA NOTED. SAFETY MEASURES IN PLACE, CALL LIGHT WITHIN REACH, BED ALARM ON. WILL CONTINUE TO MONITOR.
[2017-02-14] MEDS: PANTOPRAZOLE SODIUM 40 MG TABLET.DR PO SCH (06:22)
[2017-02-14] MEDS: LEVOTHYROXINE SODIUM 150 MCG TABLET PO SCH (06:22)
[2017-02-14] MEDS: BLOOD SUGAR DIAGNOSTIC 1 EACH STRIP VI SCH ×4 (06:36→20:21)
[2017-02-14 06:47] LABS: BASOPHILS % (AUTO) 0.2 % (0.0-2.0); EOSINOPHILS # (AUTO) 0.1 K/uL (0.0-0.7); EOSINOPHILS % (AUTO) 1.6 % (0.0-7.0); HEMOGLOBIN 11.2 G/DL (14.0-18.0); LYMPHOCYTES # (AUTO) 1.5 K/UL (0.8-4.8); LYMPHOCYTES % (AUTO) 17.5 % (20.5-51.5); MEAN CORPUSCULAR HEMOGLOBIN 29.9 UUG (27.0-31.0); MEAN CORPUSCULAR HGB CONC 33 g/dL (32.0-37.0); MEAN CORPUSCULAR VOLUME 90.9 FL (82.0-92.0); MONOCYTES # (AUTO) 0.7 K/UL (0.1-1.30); MONOCYTES % (AUTO) 8.6 % (0.0-11.0); NEUTROPHILS # (AUTO) 6.2 K/UL (1.8-8.9); NEUTROPHILS % (AUTO) 72.1 % (38.5-71.5); PLATELET COUNT (AUTO) 254 K/UL (150-450); RED BLOOD CELL COUNT(AUTO) 3.74 MIL/UL (4.7-6.1); WHITE BLOOD COUNT (AUTO) 8.5 K/UL (4.0-11.2)
[2017-02-14 07:01] LABS: ALANINE AMINOTRANSFERASE 100 U/L (16-63); ALKALINE PHOSPHATASE 107 U/L (50-136); ASPARTATE AMINOTRANSFERASE 29 U/L (15-37); BILIRUBIN,TOTAL 0.3 mg/dL (0.2-1.0); CARBON DIOXIDE 27 mmol/L (21-32); CHLORIDE 109 mmol/L (98-107); CREATININE 1.6 mg/dL (0.6-1.3); GLUCOSE 178 mg/dL (74-106); MAGNESIUM 1.8 mg/dL (1.8-2.4); PHOSPHOROUS 2.2 mg/dL (2.5-4.9); POTASSIUM 4.3 mmol/L (3.5-5.1); TOTAL PROTEIN, SERUM 6.8 g/dL (6.4-8.2); UREA NITROGEN, BLOOD 42 mg/dL (7-18)
[2017-02-14] MEDS: ALBUTEROL SULFATE 1.25 MG/3 ML NEBU NEB SCH ×4 (07:12→19:36)
[2017-02-14] MEDS: IPRATROPIUM BROMIDE 0.5 MG/2.5 ML NEBU NEB SCH ×4 (07:12→19:36)
[2017-02-14] MEDS: FUROSEMIDE 20 MG/2 ML VIAL IV SCH ×2 (09:02→20:19)
[2017-02-14] MEDS: predniSONE 20 MG TABLET PO SCH (09:02)
[2017-02-14] MEDS: DUTASTERIDE 0.5 MG CAPSULE PO SCH (09:02)
[2017-02-14] MEDS: AMIODARONE HCL 200 MG TABLET PO SCH (09:02)
[2017-02-14] MEDS: AMLODIPINE 5 MG TABLET PO SCH ×2 (09:03→20:20)
[2017-02-14] MEDS: CLOPIDOGREL 75 MG TABLET PO SCH (09:03)
[2017-02-14] MEDS: ASPIRIN EC 81 MG TABLET.DR PO SCH (09:03)
[2017-02-14] MEDS: FOLIC ACID/VITAMIN B COMP W-C TABLET PO SCH (09:03)
[2017-02-14] MEDS: SILVER SULFADIAZINE 1% CREAM 50 GM TP SCH ×2 (09:04→21:00)
[2017-02-14] MEDS: INSULIN REGULAR, HUMAN 300 UNIT/3 ML VIAL SQ PRN ×3 (09:06→16:59)
[2017-02-14] MEDS: CEFTAZIDIME 1 G in IV DEXTROSE 5% 50 ML IV SCH ×2 (09:47→20:29)
[2017-02-14] MEDS ORDERED: hydrALAZINE HCL 25 MG TABLET PO ONE (11:09)
[2017-02-14] MEDS ORDERED: NEUTRA PHOS PACKET PO ONE (11:15)
[2017-02-14 11:45] VITALS: BP 172/57
[2017-02-14 15:15] VITALS: BP 159/55
--- NOTE | 2017-02-14 19:10 | NUR ---
RECEIVED PATIENT IN BED, ALERT ORIENTED, ON OXYGEN 3LITER NC, NO SOB NO CHEST PAIN, OXYGEN SAT WNL, NO COMPLAIN OF PAIN AT THIS TIME, CONT TO MONITOR.
[2017-02-14] MEDS: TAMSULOSIN HCL 0.4 MG CAP.SR.24H PO SCH (20:19)
[2017-02-14] MEDS: SIMVASTATIN 20 MG TABLET PO SCH (20:20)
[2017-02-14 20:25] VITALS: BP 158/66
[2017-02-14] MEDS: INSULIN REGULAR, HUMAN 300 UNITS/3 ML VIAL SQ PRN (20:26)
[2017-02-14] MEDS ORDERED: INSULIN DETEMIR 300 UNIT/3 ML CARTRIDGE SQ SCH (21:00)
--- NOTE | 2017-02-14 23:50 | NUR ---
SILVER NITRATE NOT GIVEN, TX DONE IN AM.
[2017-02-15 04:00] VITALS: BP 126/61
[2017-02-15] MEDS: BLOOD SUGAR DIAGNOSTIC 1 EACH STRIP VI SCH ×2 (05:52→11:55)
[2017-02-15] MEDS: hydrALAZINE HCL 50 MG TABLET PO SCH ×2 (05:53→14:17)
[2017-02-15] MEDS: PANTOPRAZOLE SODIUM 40 MG TABLET.DR PO SCH (05:54)
[2017-02-15] MEDS: LEVOTHYROXINE SODIUM 150 MCG TABLET PO SCH (06:03)
[2017-02-15 06:56] LABS: BASOPHILS % (AUTO) 0.2 % (0.0-2.0); EOSINOPHILS # (AUTO) 0.1 K/uL (0.0-0.7); EOSINOPHILS % (AUTO) 0.8 % (0.0-7.0); HEMATOCRIT 37.4 % (40-50); HEMOGLOBIN 12.1 G/DL (14.0-18.0); LYMPHOCYTES # (AUTO) 1.8 K/UL (0.8-4.8); LYMPHOCYTES % (AUTO) 17.4 % (20.5-51.5); MEAN CORPUSCULAR HEMOGLOBIN 29.7 UUG (27.0-31.0); MEAN CORPUSCULAR HGB CONC 32 g/dL (32.0-37.0); MEAN CORPUSCULAR VOLUME 92.1 FL (82.0-92.0); MONOCYTES # (AUTO) 0.8 K/UL (0.1-1.30); MONOCYTES % (AUTO) 7.5 % (0.0-11.0); NEUTROPHILS # (AUTO) 7.8 K/UL (1.8-8.9); NEUTROPHILS % (AUTO) 74.1 % (38.5-71.5); PLATELET COUNT (AUTO) 285 K/UL (150-450); RED BLOOD CELL COUNT(AUTO) 4.06 MIL/UL (4.7-6.1); WHITE BLOOD COUNT (AUTO) 10.5 K/UL (4.0-11.2)
--- NOTE | 2017-02-15 06:56 | NUR ---
PATIENT SLEPT MOST OF THE NIGHT, CONT 3LITER NC FOR SOB ON EXERTION, NO S/S OF HYPER/HYPOGLYCEMIA NOTED, BP STABLE, CONT ABX FOR PLEURAL EFFUSION, TURN AND REPOSITION CONT TO MONITOR.
[2017-02-15 07:06] LABS: CARBON DIOXIDE 24 mmol/L (21-32); CHLORIDE 107 mmol/L (98-107); CREATININE 1.7 mg/dL (0.6-1.3); GLUCOSE 139 mg/dL (74-106); MAGNESIUM 1.6 mg/dL (1.8-2.4); PHOSPHOROUS 2.7 mg/dL (2.5-4.9); POTASSIUM 4.5 mmol/L (3.5-5.1); UREA NITROGEN, BLOOD 43 mg/dL (7-18)
[2017-02-15] MEDS: IPRATROPIUM BROMIDE 0.5 MG/2.5 ML NEBU NEB SCH ×3 (07:40→15:17)
[2017-02-15] MEDS: ALBUTEROL SULFATE 1.25 MG/3 ML NEBU NEB SCH ×3 (07:40→15:16)
[2017-02-15] MEDS ORDERED: predniSONE 20 MG TABLET PO SCH (08:00)
--- NOTE | 2017-02-15 08:30 | NUR ---
AWAKE ALERT COOPERATE WELL NO SOB CONTINUE O2 AT 2L O2 SAT WAS 95% ON FALL PRECAUTION BED ALARM ON AND CALL FREEMAN IN REACH
[2017-02-15] MEDS: CEFTAZIDIME 1 G in IV DEXTROSE 5% 50 ML IV SCH (08:39)
[2017-02-15] MEDS: ASPIRIN EC 81 MG TABLET.DR PO SCH (08:39)
[2017-02-15] MEDS: FUROSEMIDE 20 MG/2 ML VIAL IV SCH (08:39)
[2017-02-15] MEDS: CLOPIDOGREL 75 MG TABLET PO SCH (08:39)
[2017-02-15] MEDS: AMLODIPINE 5 MG TABLET PO SCH (08:40)
[2017-02-15] MEDS: AMIODARONE HCL 200 MG TABLET PO SCH (08:40)
[2017-02-15] MEDS: DUTASTERIDE 0.5 MG CAPSULE PO SCH (08:40)
[2017-02-15] MEDS: INSULIN REGULAR, HUMAN 300 UNIT/3 ML VIAL SQ PRN ×2 (08:42→12:06)
[2017-02-15] MEDS ORDERED: SERTRALINE HCL 50 MG TABLET PO SCH (09:00)
[2017-02-15] MEDS: SILVER SULFADIAZINE 1% CREAM 50 GM TP SCH (09:17)
[2017-02-15] MEDS: FOLIC ACID/VITAMIN B COMP W-C TABLET PO SCH (09:17)
[2017-02-15] MEDS ORDERED: MAGNESIUM OXIDE 400 MG TABLET PO ONE (10:45)
--- NOTE | 2017-02-15 11:30 | NUR ---
WOUND CARE DSG CHANGE DONE ORDER AND PICTURE TAKEN PRIOR D/C TODAY
[2017-02-15 11:42] VITALS: BP 151/55
[2017-02-15] MEDS ORDERED: ALBU1.25 NEB (12:03)
[2017-02-15] MEDS ORDERED: FURO-151 PO (12:05)
--- NOTE | 2017-02-15 13:00 | NUR ---
DR EDILMA ABDALLA SEE PATIENT THIS AFTERNOON AND ORDER OK TO TRANSFER TO ARU TODAY WITH ORDER
--- NOTE | 2017-02-15 14:00 | NUR ---
PATIENT AND FAMILY WAS EXPLAINED D/C INSTRUCTION AND EDUCATION VERBALIZES UNDERSTAND AND SIGNS D/C SHEET
--- NOTE | 2017-02-15 15:00 | NUR ---
REPORT GIVEN TO JUAN CHARGE NURSE VIA TEL ,PATIENT CONDITION STABLE NO SOB OR PAIN
[2017-02-15 15:21] VITALS: BP 144/54
--- NOTE | 2017-02-15 16:00 | NUR ---
TO REHAB UNIT VIA W/C ACCOMPANIES WITH DARREL
[2017-02-15] MEDS ORDERED: SILV400C TP (17:30)
[2017-02-15] MEDS ORDERED: IPRA0.2S6 NEB ×2 (17:30)
[2017-02-16] MEDS ORDERED: UMEC62.5 IH (13:57)
[2017-02-16] MEDS ORDERED: UMEC1BLS IH (13:57)
== END 2017-02-15 16:00 | DRG 871 ==
LOC: ER 22:55 → TELE 02-09 02:31 → MED 02-09 21:00 → TELE 02-11 22:33 → MED 02-13 18:15
PROC: 05H633Z Insertion of Infusion Device into Left Subclavian Vein, Percutaneous Approach (ICD-10-PCS; principal; 2017-02-12)
DX: A41.9 Sepsis, unspecified organism (principal); G92 Toxic encephalopathy; N17.0 Acute kidney failure with tubular necrosis; I50.33 Acute on chronic diastolic (congestive) heart failure; J96.01 Acute respiratory failure with hypoxia; I21.4 Non-ST elevation (NSTEMI) myocardial infarction; J69.0 Pneumonitis due to inhalation of food and vomit; K57.91 Diverticulosis of intestine, part unspecified, without perforation or abscess with bleeding; E43 Unspecified severe protein-calorie malnutrition; L03.116 Cellulitis of left lower limb; L03.115 Cellulitis of right lower limb; L97.829 Non-pressure chronic ulcer of other part of left lower leg with unspecified severity; L97.819 Non-pressure chronic ulcer of other part of right lower leg with unspecified severity; I13.0 Hypertensive heart and chronic kidney disease with heart failure and stage 1 through stage 4 chronic kidney disease, or unspecified chronic kidney disease; D68.59 Other primary thrombophilia; J44.0 Chronic obstructive pulmonary disease with (acute) lower respiratory infection; J44.1 Chronic obstructive pulmonary disease with (acute) exacerbation; I87.2 Venous insufficiency (chronic) (peripheral); B96.89 Other specified bacterial agents as the cause of diseases classified elsewhere; B96.5 Pseudomonas (aeruginosa) (mallei) (pseudomallei) as the cause of diseases classified elsewhere; R65.20 Severe sepsis without septic shock; E11.22 Type 2 diabetes mellitus with diabetic chronic kidney disease; E11.65 Type 2 diabetes mellitus with hyperglycemia; N18.9 Chronic kidney disease, unspecified; E11.51 Type 2 diabetes mellitus with diabetic peripheral angiopathy without gangrene; Z95.820 Peripheral vascular angioplasty status with implants and grafts; Z79.4 Long term (current) use of insulin; Z95.0 Presence of cardiac pacemaker; Z79.01 Long term (current) use of anticoagulants; Z79.02 Long term (current) use of antithrombotics/antiplatelets; Z95.1 Presence of aortocoronary bypass graft; Z87.891 Personal history of nicotine dependence; Z85.118 Personal history of other malignant neoplasm of bronchus and lung; Z90.2 Acquired absence of lung [part of]; Z82.49 Family history of ischemic heart disease and other diseases of the circulatory system; Z83.3 Family history of diabetes mellitus; E66.9 Obesity, unspecified; Z71.3 Dietary counseling and surveillance; D64.9 Anemia, unspecified; I49.5 Sick sinus syndrome; Z68.37 Body mass index [BMI] 37.0-37.9, adult; Z79.82 Long term (current) use of aspirin; N40.0 Benign prostatic hyperplasia without lower urinary tract symptoms; E86.9 Volume depletion, unspecified; E78.5 Hyperlipidemia, unspecified; E03.9 Hypothyroidism, unspecified; I48.0 Paroxysmal atrial fibrillation; J45.909 Unspecified asthma, uncomplicated; K21.9 Gastro-esophageal reflux disease without esophagitis
CPT/HCPCS: 36415; 70030-TC; 70450; 71010; 71250; 76770; 78579; 83550; 83605; 83735; 84100; 84156; 84300; 84443; 85018; 85025; 85730; 86705; 86706; 86708; 86803; 87040; 87070; 87077; 87086; 87340; 93005; 93307; 94640; 94664; 97116; 97161; 97530; A4663; A9540; A9567; J0713; J1815; J1940; J2060; J2185; J2543; J2930; J3370; J3475; J3490; J3590; J7030; J7040; J7050; J7060; J7512

== ENCOUNTER 2017-02-14 15:16 | Inpatient (IN) | payer MEDICARE, MEDICAID ==
[~2017-02-14] VITALS: Ht 175.3 cm; Wt 112.0 kg
[~2017-02-14 15:16] MED LIST: AMIO200T2 PO; AMLO5TAB2 PO; APIX2.5T PO; ASPI81TA31 PO; BLOO-140 IN; CLOP75TA15 PO; DUTA0.5C PO; FEBU40TA PO; FOLI0.8T23 PO; FURO-151 PO; INSU100V11 SUBCUT; LANTUS SUBCUT; LEVO150T8 PO; NEBI10TA2 PO; PREG75CA PO; SIMV20TA6 PO; TAMS-3 PO; VALS80TA2 PO
[2017-02-15] MEDS ORDERED: ALBU1.25 NEB (12:03)
[2017-02-15] MEDS ORDERED: FURO-151 PO (12:05)
[2017-02-15] MEDS ORDERED: Z GUARD REMEDY PASTE 57 GM TUBE TOP PRN (17:00)
[2017-02-15] MEDS ORDERED: IPRA0.2S6 NEB ×2 (17:30)
[2017-02-15] MEDS ORDERED: SILV400C TP (17:30)
[2017-02-15] MEDS ORDERED: DEXTROSE 50% 50 ML DISP.SYRIN IV PRN (17:45)
[2017-02-15] MEDS ORDERED: IPRATROPIUM BROMIDE 0.5 MG/2.5 ML NEBU NEB PRN (17:45)
[2017-02-15 18:18] VITALS: BP 113/51
--- NOTE | 2017-02-15 18:56 | NUR ---
pt arrived at 1700 from medsur floor. pt vitals stable. pt belongings reconciled. medications were ordered to continue from [facility]. all pictures of wounds were taken and dressings were changed. physical assessment done on the pt. all pertinent pictures of wounds taken. all pertinent intervention flowsheet done for the patient. will endorse new orders to irrigator nurse.
[2017-02-15] MEDS: IPRATROPIUM BROMIDE 0.5 MG/2.5 ML NEBU NEB SCH (19:06)
[2017-02-15] MEDS: PREGABALIN 25 MG CAPSULE PO SCH (19:32)
[2017-02-15] MEDS: BLOOD SUGAR DIAGNOSTIC 1 EACH STRIP VI SCH ×2 (19:32→21:57)
[2017-02-15] MEDS: INSULIN REGULAR, HUMAN 300 UNIT/3 ML VIAL SQ PRN (19:33)
[2017-02-15 20:20] VITALS: BP 142/55
[2017-02-15] MEDS: SIMVASTATIN 20 MG TABLET PO SCH (21:51)
[2017-02-15] MEDS: SILVER SULFADIAZINE 1% CREAM 50 GM TP SCH (21:54)
[2017-02-15] MEDS: INSULIN REGULAR, HUMAN 300 UNITS/3 ML VIAL SQ PRN (22:24)
--- NOTE | 2017-02-15 22:30 | NUR ---
Transferred patient from room #120 to room #108 per patients request. Patient is awake alert and able to make needs known. No pain or discomfort reported by patient when asked. Respirations are unlabored and v/s WNL. No distress noted . Patient resting comfortably in bed. Bed set to lowest position with 2/4 side rails up for safety. Call light within reach. Will continue to monitor
[2017-02-16] MEDS: LEVOTHYROXINE SODIUM 150 MCG TABLET PO SCH (06:29)
[2017-02-16] MEDS: BLOOD SUGAR DIAGNOSTIC 1 EACH STRIP VI SCH ×4 (06:32→20:59)
[2017-02-16 06:54] LABS: BASOPHILS # (AUTO) 0.1 K/uL (0.0-8.0); BASOPHILS % (AUTO) 0.4 % (0.0-2.0); EOSINOPHILS # (AUTO) 0.1 K/uL (0.0-0.7); EOSINOPHILS % (AUTO) 0.8 % (0.0-7.0); HEMATOCRIT 36.6 % (40-50); HEMOGLOBIN 11.7 G/DL (14.0-18.0); LYMPHOCYTES # (AUTO) 1.1 K/UL (0.8-4.8); LYMPHOCYTES % (AUTO) 7.8 % (20.5-51.5); MEAN CORPUSCULAR HEMOGLOBIN 29.1 UUG (27.0-31.0); MEAN CORPUSCULAR HGB CONC 32 g/dL (32.0-37.0); MEAN CORPUSCULAR VOLUME 90.8 FL (82.0-92.0); MONOCYTES # (AUTO) 0.6 K/UL (0.1-1.30); MONOCYTES % (AUTO) 4.1 % (0.0-11.0); NEUTROPHILS # (AUTO) 12.5 K/UL (1.8-8.9); NEUTROPHILS % (AUTO) 86.9 % (38.5-71.5); PLATELET COUNT (AUTO) 275 K/UL (150-450); RED BLOOD CELL COUNT(AUTO) 4.03 MIL/UL (4.7-6.1); WHITE BLOOD COUNT (AUTO) 14.4 K/UL (4.0-11.2)
[2017-02-16] MEDS: IPRATROPIUM BROMIDE 0.5 MG/2.5 ML NEBU NEB SCH ×4 (07:15→18:52)
[2017-02-16 07:23] LABS: CARBON DIOXIDE 28 mmol/L (21-32); CHLORIDE 106 mmol/L (98-107); CREATININE 1.9 mg/dL (0.6-1.3); GLUCOSE 120 mg/dL (74-106); MAGNESIUM 1.7 mg/dL (1.8-2.4); PHOSPHOROUS 3.4 mg/dL (2.5-4.9); POTASSIUM 4.1 mmol/L (3.5-5.1); UREA NITROGEN, BLOOD 52 mg/dL (7-18)
[2017-02-16 07:28] LABS: LYMPHOCYTES % (MANUAL) 10 % (20-40); MONOCYTES % (MANUAL) 5 % (2-10); NEUTROPHILS % (MANUAL) 11111 % (42-75)
[2017-02-16 08:01] VITALS: BP_SYST 135; BP_SYST 140; BP_DIAS 60
[2017-02-16 08:15] LABS: CHOLESTEROL 136 mg/dL (<200); HDL CHOLESTEROL 60 mg/dL (40-60); TRIGLYCERIDES 100 MG/DL (30-150)
[2017-02-16] MEDS: DUTASTERIDE 0.5 MG CAPSULE PO SCH (08:35)
[2017-02-16] MEDS: CLOPIDOGREL 75 MG TABLET PO SCH (08:35)
[2017-02-16] MEDS: ASPIRIN 81 MG TAB.CHEW PO SCH (08:35)
[2017-02-16] MEDS: PREGABALIN 25 MG CAPSULE PO SCH ×3 (08:35→16:15)
[2017-02-16] MEDS: VALSARTAN 80 MG TABLET PO SCH (08:35)
[2017-02-16] MEDS: AMIODARONE HCL 200 MG TABLET PO SCH (08:36)
[2017-02-16] MEDS: AMLODIPINE 5 MG TABLET PO SCH ×2 (08:36→16:14)
[2017-02-16] MEDS: FUROSEMIDE 40 MG TABLET PO SCH ×2 (08:36→16:15)
[2017-02-16] MEDS: FOLIC ACID/VITAMIN B COMP W-C TABLET PO SCH (08:40)
[2017-02-16] MEDS: SILVER SULFADIAZINE 1% CREAM 50 GM TP SCH ×2 (08:46→20:35)
[2017-02-16] MEDS ORDERED: Medication Not On Formulary EA (Pregabalin (Lyrica) 75 MG) PO SCH (09:00)
[2017-02-16] MEDS: INSULIN REGULAR, HUMAN 300 UNIT/3 ML VIAL SQ PRN (11:51)
--- NOTE | 2017-02-16 11:53 | NUR ---
Wired Sweatband Cutter SW met with patient at [facility] to assess pt needs and provide support. The patient is a 76 year old [place]ian (Frisian speaking) male who was admitted to ARU due to functional decline and impaired ADLs. The patient was laying in his bed during the assessment. He was calm and cooperative during the interview. The patient's mood was somewhat depressed and anxious. The patient stated that his sleep and appetite have been good . Per pt, he lives at home with his [[address] [place] [address]; ]. The patient acknowledged his condition and the need for intervention. The patient stated that she has strong social support from his Tali Stone . Social history: The patient stated that he was born and raised in [place]. He stated that he was raised by both of his parents. 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 The patient has been to his for 47 years. The patient has 2 sons, one of which is a dentist and the other is a surgeon. The patient stated that he moved to the in 1990. The patient denied any history of abuse or domestic violence. The patient denied any history of alcohol and drug abuse. The patient stated that he would like to return to home with his upon discharge. SW engaged in active listening and provided supportive counseling during the interview to address patient's depressive symptoms related to his decline in functioning. SW will continue to address issues of loss related to recent hospitalization. SW will encourage compliance with rehab goals. SW will be available as needed.
[2017-02-16] MEDS ORDERED: MAGNESIUM OXIDE 400 MG TABLET PO ONE (12:45)
--- NOTE | 2017-02-16 13:50 | NUR ---
REHAB IDT SUMMAMRY
[2017-02-16] MEDS ORDERED: UMEC62.5 IH (13:57)
[2017-02-16] MEDS ORDERED: UMEC1BLS IH (13:57)
--- NOTE | 2017-02-16 20:30 | NUR ---
PT'S A/A/O X4,ON BED REST COMFORTABLY,PT'S ANXIOUS A LITTLE DUE TO HIS HOME MEDICATIONS(INHALER);EDUCATED TO PT DUE TO THE POLICY TO GIVE TO RX TO VERIFY IT PRIOR GIVE TO PT;LATER ON AFTER SHOW IT TO HIME;PT'S CALM. CHANGED D/S TO BILATERAL LEGS AND APPLIED SILVADENE CREAM TO PT;EDUCATED;PT VERBALIZED UNDERSTANDING AND COOPERATIVE AT THIS TIME.SNACK'S GIVEN TO PT AFTER PT GOT INSULIN( RECORD);PT TOLERATED WELL NOTED.KEPT COMFORT.CALL-LIGHT WITHIN REACH.CONTINUED MONITORING TO PT.KEPT CALL-LIGHT WITHIN REACH.
[2017-02-16] MEDS: INCRUSE ELLIPTA 62.5 MCG INH SCH (20:34)
[2017-02-16] MEDS: SIMVASTATIN 20 MG TABLET PO SCH (20:35)
[2017-02-16] MEDS: TAMSULOSIN HCL 0.4 MG CAP.SR.24H PO SCH (20:35)
[2017-02-16 20:39] VITALS: BP 122/55
[2017-02-16] MEDS: INSULIN REGULAR, HUMAN 300 UNITS/3 ML VIAL SQ PRN (21:04)
--- NOTE | 2017-02-17 06:20 | NUR ---
PT SLEPT WELL THROUGH OF THE NIGHT,NO SOB'S SEEN.ASSISTED FOR AM CARE ON BED;PT'S COOPERATIVE W/ASSISTANCE.NO DISTRESS NOTED IN THE SHIFT.
[2017-02-17] MEDS: LEVOTHYROXINE SODIUM 150 MCG TABLET PO SCH (06:46)
[2017-02-17] MEDS: BLOOD SUGAR DIAGNOSTIC 1 EACH STRIP VI SCH ×4 (06:50→20:22)
[2017-02-17 07:00] LABS: BASOPHILS % (AUTO) 0.2 % (0.0-2.0); EOSINOPHILS # (AUTO) 0.2 K/uL (0.0-0.7); EOSINOPHILS % (AUTO) 1.9 % (0.0-7.0); HEMATOCRIT 36.5 % (40-50); HEMOGLOBIN 11.9 G/DL (14.0-18.0); LYMPHOCYTES # (AUTO) 1.2 K/UL (0.8-4.8); MEAN CORPUSCULAR HEMOGLOBIN 29.7 UUG (27.0-31.0); MEAN CORPUSCULAR HGB CONC 33 g/dL (32.0-37.0); MEAN CORPUSCULAR VOLUME 91.4 FL (82.0-92.0); MONOCYTES # (AUTO) 0.5 K/UL (0.1-1.30); MONOCYTES % (AUTO) 5.6 % (0.0-11.0); NEUTROPHILS # (AUTO) 7.7 K/UL (1.8-8.9); NEUTROPHILS % (AUTO) 79.3 % (38.5-71.5); PLATELET COUNT (AUTO) 235 K/UL (150-450); RED BLOOD CELL COUNT(AUTO) 3.99 MIL/UL (4.7-6.1); WHITE BLOOD COUNT (AUTO) 9.6 K/UL (4.0-11.2)
[2017-02-17 07:03] LABS: ALANINE AMINOTRANSFERASE 42 U/L (16-63); ALKALINE PHOSPHATASE 81 U/L (50-136); ASPARTATE AMINOTRANSFERASE 13 U/L (15-37); BILIRUBIN,TOTAL 0.3 mg/dL (0.2-1.0); CARBON DIOXIDE 31 mmol/L (21-32); CHLORIDE 105 mmol/L (98-107); CREATININE 2.2 mg/dL (0.6-1.3); GLUCOSE 223 mg/dL (74-106); MAGNESIUM 1.7 mg/dL (1.8-2.4); PHOSPHOROUS 4.2 mg/dL (2.5-4.9); POTASSIUM 4.5 mmol/L (3.5-5.1); UREA NITROGEN, BLOOD 63 mg/dL (7-18)
[2017-02-17] MEDS: IPRATROPIUM BROMIDE 0.5 MG/2.5 ML NEBU NEB SCH ×4 (07:37→19:30)
[2017-02-17] MEDS: ALBUTEROL SULFATE 1.25 MG/3 ML NEBU NEB PRN (07:37)
--- NOTE | 2017-02-17 08:00 | NUR ---
Report received from night nurse, received patient in bed asleep, but arousable , on O2/2l via nasal cannula, no sob noted, resp. even and unlabored, no c/o pain or discomfort noted at this time. Will continue to monitor for safety and needs.
[2017-02-17 08:02] VITALS: BP 128/57
[2017-02-17] MEDS: ANORO ELLIPTA INH SCH (09:41)
[2017-02-17] MEDS: VALSARTAN 80 MG TABLET PO SCH (09:41)
[2017-02-17] MEDS: CLOPIDOGREL 75 MG TABLET PO SCH (09:42)
[2017-02-17] MEDS: PREGABALIN 25 MG CAPSULE PO SCH ×3 (09:42→17:20)
[2017-02-17] MEDS: AMLODIPINE 5 MG TABLET PO SCH ×2 (09:42→17:00)
[2017-02-17] MEDS: ASPIRIN 81 MG TAB.CHEW PO SCH (09:42)
[2017-02-17] MEDS: FUROSEMIDE 40 MG TABLET PO SCH (09:42)
[2017-02-17] MEDS: FOLIC ACID/VITAMIN B COMP W-C TABLET PO SCH (09:42)
[2017-02-17] MEDS: DUTASTERIDE 0.5 MG CAPSULE PO SCH (09:45)
[2017-02-17] MEDS: AMIODARONE HCL 200 MG TABLET PO SCH (09:46)
[2017-02-17] MEDS: SILVER SULFADIAZINE 1% CREAM 50 GM TP SCH ×2 (09:50→20:19)
[2017-02-17] MEDS: INSULIN REGULAR, HUMAN 300 UNIT/3 ML VIAL SQ PRN ×3 (09:59→17:19)
[2017-02-17] MEDS ORDERED: MAGNESIUM OXIDE 400 MG TABLET PO ONE (13:45)
--- NOTE | 2017-02-17 15:20 | NUR ---
Patient showered today with PT, tolerated well, ambulates in the hallway with walker, no sob noted. Dressing change done , no s/s of redness or infection noted on bilateral lower extremity noted, no c/o pain. Medication compliant and cooperative. Will continue to monitor for safety and needs.
[2017-02-17 16:00] VITALS: BP 98/50
[2017-02-17] MEDS ORDERED: FUROSEMIDE 40 MG TABLET PO SCH (17:00)
[2017-02-17] MEDS: FUROSEMIDE 20 MG TABLET PO SCH (17:21)
--- NOTE | 2017-02-17 18:27 | NUR ---
Patient's bp went down to 94/50, rechecked in an hour, 95/60, Md Gonzalez Kimbrough notified , no order. Patient is asymptomatic. Rechecked at 1800, 98/50. Will continue to monitor BP.
--- NOTE | 2017-02-17 19:30 | NUR ---
nsg: pt received a/o x 4, no acute distress noted. denies discomfort. on 2L O2 via nc saturating at 95%. lungs sound diminished to auscultate. midline on left upper arm patent. ble with trace edema. call light within reach.
[2017-02-17 19:41] VITALS: BP 95/52
--- NOTE | 2017-02-17 19:42 | NUR ---
Pt asleep at this time. No resp. tx adm'd at this time.
[2017-02-17] MEDS: SIMVASTATIN 20 MG TABLET PO SCH (20:18)
[2017-02-17] MEDS: TAMSULOSIN HCL 0.4 MG CAP.SR.24H PO SCH (20:18)
[2017-02-17] MEDS: INCRUSE ELLIPTA 62.5 MCG INH SCH (20:19)
[2017-02-17] MEDS: INSULIN REGULAR, HUMAN 300 UNITS/3 ML VIAL SQ PRN (20:26)
--- NOTE | 2017-02-18 | NUR ---
nsg: no acute distress noted. comfortable sleeping.
--- NOTE | 2017-02-18 05:13 | NUR ---
nsg: all needs attended. no acute distress noted. cont to monitor.
[2017-02-18] MEDS: LEVOTHYROXINE SODIUM 150 MCG TABLET PO SCH (06:06)
[2017-02-18] MEDS: BLOOD SUGAR DIAGNOSTIC 1 EACH STRIP VI SCH ×4 (06:10→21:53)
[2017-02-18] MEDS: IPRATROPIUM BROMIDE 0.5 MG/2.5 ML NEBU NEB SCH ×4 (06:12→19:05)
--- NOTE | 2017-02-18 07:00 | NUR ---
NSG RECEIVED REPORT FROM SPINDLE REPAIRER NURSE, ALL NEEDS ATTENDED, NO C/O DISTRESS NO C/O PAIN.
[2017-02-18] MEDS: INSULIN REGULAR, HUMAN 300 UNIT/3 ML VIAL SQ PRN ×3 (07:58→17:10)
[2017-02-18 08:00] VITALS: BP 98/47
[2017-02-18] MEDS: FUROSEMIDE 20 MG TABLET PO SCH ×2 (09:00→16:19)
[2017-02-18] MEDS: SILVER SULFADIAZINE 1% CREAM 50 GM TP SCH ×2 (09:00→21:52)
[2017-02-18] MEDS: AMIODARONE HCL 200 MG TABLET PO SCH (09:00)
[2017-02-18] MEDS: AMLODIPINE 5 MG TABLET PO SCH ×2 (09:00→16:18)
[2017-02-18] MEDS: FOLIC ACID/VITAMIN B COMP W-C TABLET PO SCH (09:22)
[2017-02-18] MEDS: PREGABALIN 25 MG CAPSULE PO SCH ×3 (09:22→16:17)
[2017-02-18] MEDS: ASPIRIN 81 MG TAB.CHEW PO SCH (09:22)
[2017-02-18] MEDS: DUTASTERIDE 0.5 MG CAPSULE PO SCH (09:22)
[2017-02-18] MEDS: CLOPIDOGREL 75 MG TABLET PO SCH (09:22)
[2017-02-18] MEDS: ANORO ELLIPTA INH SCH (09:25)
--- NOTE | 2017-02-18 12:30 | NUR ---
NSG BS 265, 9 INSULIN GIVEN PER PROTOCOL, NO PAIN, CHANGED DRSGS TO LEGS PER PROTOCOL. CALL LIGHT IN REACH.
--- NOTE | 2017-02-18 17:50 | NUR ---
NSG PT RESTING IN BED NO C/O PAIN, NO DISTRESS, CALL LIGHT IN REACH.
[2017-02-18 20:00] VITALS: BP 107/53
[2017-02-18] MEDS: INCRUSE ELLIPTA 62.5 MCG INH SCH (21:00)
[2017-02-18] MEDS: SIMVASTATIN 20 MG TABLET PO SCH (21:43)
[2017-02-18] MEDS: TAMSULOSIN HCL 0.4 MG CAP.SR.24H PO SCH (21:43)
[2017-02-18] MEDS: INSULIN REGULAR, HUMAN 300 UNITS/3 ML VIAL SQ PRN (21:49)
--- NOTE | 2017-02-19 05:52 | NUR ---
PT SLEPT WELL THROUGH THE NIGHT AND WAS EASILY AWOKEN, PT DENIED HAVING ANY PAIN OR DIFFICULTY BREATHING. PT NEEDED STAND BY ASSIST TO MINIMUM ASSISTANCE FOR ADL'S DURING THE NIGHT. ALL NEEDS MET, SAFETY MEASURES ARE IN PLACE, CALL LIGHT WITHIN REACH, BED ALARM IS ON.
[2017-02-19] MEDS: LEVOTHYROXINE SODIUM 150 MCG TABLET PO SCH (06:45)
[2017-02-19] MEDS: BLOOD SUGAR DIAGNOSTIC 1 EACH STRIP VI SCH ×4 (06:49→20:42)
[2017-02-19] MEDS: IPRATROPIUM BROMIDE 0.5 MG/2.5 ML NEBU NEB SCH ×4 (06:52→20:10)
[2017-02-19 07:32] VITALS: BP 119/54
[2017-02-19] MEDS: FOLIC ACID/VITAMIN B COMP W-C TABLET PO SCH (08:13)
[2017-02-19] MEDS: CLOPIDOGREL 75 MG TABLET PO SCH (08:14)
[2017-02-19] MEDS: ASPIRIN 81 MG TAB.CHEW PO SCH (08:14)
[2017-02-19] MEDS: SILVER SULFADIAZINE 1% CREAM 50 GM TP SCH ×2 (08:14→20:42)
[2017-02-19] MEDS: PREGABALIN 25 MG CAPSULE PO SCH ×3 (08:14→17:26)
[2017-02-19] MEDS: FUROSEMIDE 20 MG TABLET PO SCH ×2 (08:14→17:26)
[2017-02-19] MEDS: DUTASTERIDE 0.5 MG CAPSULE PO SCH (08:14)
[2017-02-19] MEDS: AMIODARONE HCL 200 MG TABLET PO SCH (08:15)
[2017-02-19] MEDS: AMLODIPINE 5 MG TABLET PO SCH ×2 (08:15→17:00)
[2017-02-19] MEDS: INSULIN REGULAR, HUMAN 300 UNIT/3 ML VIAL SQ PRN ×3 (08:19→17:23)
[2017-02-19] MEDS: ANORO ELLIPTA INH SCH (09:00)
[2017-02-19] MEDS: INSULIN REGULAR, HUMAN 300 UNITS/3 ML VIAL SQ PRN (20:41)
[2017-02-19] MEDS: TAMSULOSIN HCL 0.4 MG CAP.SR.24H PO SCH (20:43)
[2017-02-19] MEDS: SIMVASTATIN 20 MG TABLET PO SCH (20:43)
[2017-02-19] MEDS: INCRUSE ELLIPTA 62.5 MCG INH SCH (20:44)
[2017-02-19 20:48] VITALS: BP 126/54
--- NOTE | 2017-02-19 23:40 | NUR ---
NSG: pt received alert and oriented x 4, no acute distress noted. denies discomfort. on 2L O2 via nc saturating at 96%. lungs sound diminished to auscultate. ble with trace edema. midline in place. call light within reach.
[2017-02-20] MEDS: LEVOTHYROXINE SODIUM 150 MCG TABLET PO SCH (06:21)
[2017-02-20] MEDS: BLOOD SUGAR DIAGNOSTIC 1 EACH STRIP VI SCH ×4 (06:41→20:01)
--- NOTE | 2017-02-20 07:01 | NUR ---
NSG: PT SLEPT WELL THROUGH THE NIGHT, PT DENIED HAVING ANY PAIN OR DIFFICULTY BREATHING THIS TIME. PT NEEDED STAND BY ASSIST TO MINIMUM ASSISTANCE FOR ADL'S DURING THE NIGHT. ALL NEEDS MET, SAFETY MEASURES ARE IN PLACE, CALL LIGHT WITHIN REACH, BED ALARM IS ON. CONTINUE PLAN OF CARE.
--- NOTE | 2017-02-20 07:35 | NUR ---
Received patient asleep, call light within reach. Non-labored breathing. With intact left upper arm midline.
[2017-02-20] MEDS: INSULIN REGULAR, HUMAN 300 UNIT/3 ML VIAL SQ PRN ×3 (07:41→16:56)
[2017-02-20 07:42] LABS: BASOPHILS # (AUTO) 0.1 K/uL (0.0-8.0); BASOPHILS % (AUTO) 0.7 % (0.0-2.0); EOSINOPHILS # (AUTO) 0.2 K/uL (0.0-0.7); EOSINOPHILS % (AUTO) 1.9 % (0.0-7.0); HEMATOCRIT 36.3 % (40-50); HEMOGLOBIN 11.6 G/DL (14.0-18.0); LYMPHOCYTES # (AUTO) 1.3 K/UL (0.8-4.8); LYMPHOCYTES % (AUTO) 14.5 % (20.5-51.5); MEAN CORPUSCULAR HEMOGLOBIN 29.6 UUG (27.0-31.0); MEAN CORPUSCULAR HGB CONC 32 g/dL (32.0-37.0); MEAN CORPUSCULAR VOLUME 92.4 FL (82.0-92.0); MONOCYTES # (AUTO) 0.7 K/UL (0.1-1.30); MONOCYTES % (AUTO) 7.5 % (0.0-11.0); NEUTROPHILS # (AUTO) 6.4 K/UL (1.8-8.9); NEUTROPHILS % (AUTO) 75.4 % (38.5-71.5); PLATELET COUNT (AUTO) 202 K/UL (150-450); RED BLOOD CELL COUNT(AUTO) 3.92 MIL/UL (4.7-6.1); WHITE BLOOD COUNT (AUTO) 8.7 K/UL (4.0-11.2)
[2017-02-20 08:27] VITALS: BP 139/56
[2017-02-20 08:27] LABS: ALANINE AMINOTRANSFERASE 32 U/L (16-63); ALKALINE PHOSPHATASE 93 U/L (50-136); ASPARTATE AMINOTRANSFERASE 13 U/L (15-37); BILIRUBIN,TOTAL 0.2 mg/dL (0.2-1.0); CARBON DIOXIDE 30 mmol/L (21-32); CHLORIDE 106 mmol/L (98-107); CREATININE 2.2 mg/dL (0.6-1.3); MAGNESIUM 2.1 mg/dL (1.8-2.4); PHOSPHOROUS 4.1 mg/dL (2.5-4.9); POTASSIUM 5.4 mmol/L (3.5-5.1); TOTAL PROTEIN, SERUM 6.2 g/dL (6.4-8.2)
[2017-02-20 08:37] LABS: UREA NITROGEN, BLOOD 81 mg/dL (7-18)
--- NOTE | 2017-02-20 08:37 | NUR ---
BUN- 81. Informed Dr. Shara Robert. No new orders at this time.
[2017-02-20 08:48] LABS: GLUCOSE 190 mg/dL (74-106)
[2017-02-20] MEDS: IPRATROPIUM BROMIDE 0.5 MG/2.5 ML NEBU NEB SCH ×4 (08:56→19:58)
[2017-02-20] MEDS: ANORO ELLIPTA INH SCH (09:00)
[2017-02-20] MEDS: PREGABALIN 25 MG CAPSULE PO SCH ×3 (09:36→17:34)
[2017-02-20] MEDS: DUTASTERIDE 0.5 MG CAPSULE PO SCH (09:36)
[2017-02-20] MEDS: ASPIRIN 81 MG TAB.CHEW PO SCH (09:36)
[2017-02-20] MEDS: FOLIC ACID/VITAMIN B COMP W-C TABLET PO SCH (09:37)
[2017-02-20] MEDS: CLOPIDOGREL 75 MG TABLET PO SCH (09:37)
[2017-02-20] MEDS: FUROSEMIDE 20 MG TABLET PO SCH (09:37)
[2017-02-20] MEDS: AMIODARONE HCL 200 MG TABLET PO SCH (09:38)
[2017-02-20] MEDS: AMLODIPINE 5 MG TABLET PO SCH ×2 (09:38→17:34)
[2017-02-20] MEDS: SILVER SULFADIAZINE 1% CREAM 50 GM TP SCH ×2 (09:47→20:19)
[2017-02-20] MEDS: ALBUTEROL SULFATE 1.25 MG/3 ML NEBU NEB PRN (12:46)
--- NOTE | 2017-02-20 13:00 | NUR ---
CXR done, Furosemide D/C by Dr. Olmedo. Up with physical therapy. Tolerating therapy well. No complaints of pain at this time.
[2017-02-20 16:12] LABS: *BILIRUBIN,URIN NEGATIVE (NEGATIVE); *BLOOD, URINE NEGATIVE (NEGATIVE); *CLARITY,URINE CLEAR (CLEAR); *COLOR,URINE YELLOW (YELLOW); *KETONES,URINE NEGATIVE (NEGATIVE); *PROTEIN,URINE NEGATIVE (NEGATIVE); *UROBILINOGEN,URINE 0.2 E.U./dl (NORMAL); LEUKOCYTE ESTERASE ,URINE NEGATIVE (NEGATIVE); NITRITE, URINE NEGATIVE (NEGATIVE); UGLUCOSE NEGATIVE (NEGATIVE)
[2017-02-20 16:29] LABS: MUCUS,URINE FEW /LPF (0-FEW); SQUAMOUS EPITHELIAL CELL,UR FEW /HPF (NONE SEEN); WBC,URINE 0-3 /HPF (0-3)
[2017-02-20 16:53] LABS: *CHLORIDE RNDM,URINE 77 mmol/L (100-250); *CREATININE,URINE 39.3 mg/dL (30-125); *POTASSIUM RNDM,URINE 19 mmol/L (25-125); *URINE TOTAL PROTEIN RANDOM < 6.0 mg/dL (<150/24HR)
--- NOTE | 2017-02-20 19:30 | NUR ---
NSG: Received patient laying in bed, call light within reach. Non-labored breathing. With intact left upper arm midline.continue monitoring for safety.
[2017-02-20] MEDS: SIMVASTATIN 20 MG TABLET PO SCH (20:18)
[2017-02-20] MEDS: TAMSULOSIN HCL 0.4 MG CAP.SR.24H PO SCH (20:18)
[2017-02-20 20:19] VITALS: BP 117/56
[2017-02-20] MEDS: INCRUSE ELLIPTA 62.5 MCG INH SCH (20:21)
[2017-02-20] MEDS: INSULIN REGULAR, HUMAN 300 UNITS/3 ML VIAL SQ PRN (20:27)
--- NOTE | 2017-02-20 20:53 | NUR ---
nsg: home meds inh due 2100 pm dose . family took meds home. also patient refused to take it.
--- NOTE | 2017-02-21 00:29 | NUR ---
NSG: RESTING IN BED. BILAT LEG TX DONE ORDERED @ 2100 HS. NO ACUTE DISTRESS NOTED. CONTINUE PLAN OF CARE.
--- NOTE | 2017-02-21 05:17 | NUR ---
NSG: SLEPT WELL THROUGH THE NIGHT.NO C/O PAIN OR DISCOMFORT THIS TIME. CALL LIGHT W/IN REACH. CONTINUE MONITORING FOR SAFETY.
[2017-02-21] MEDS: LEVOTHYROXINE SODIUM 150 MCG TABLET PO SCH (06:08)
[2017-02-21] MEDS: BLOOD SUGAR DIAGNOSTIC 1 EACH STRIP VI SCH ×4 (06:21→21:00)
[2017-02-21] MEDS: INSULIN REGULAR, HUMAN 300 UNIT/3 ML VIAL SQ PRN ×3 (07:38→17:04)
[2017-02-21 07:47] LABS: BASOPHILS # (AUTO) 0.1 K/uL (0.0-8.0); BASOPHILS % (AUTO) 0.7 % (0.0-2.0); EOSINOPHILS # (AUTO) 0.2 K/uL (0.0-0.7); EOSINOPHILS % (AUTO) 2.4 % (0.0-7.0); HEMATOCRIT 33.7 % (40-50); HEMOGLOBIN 10.9 G/DL (14.0-18.0); LYMPHOCYTES # (AUTO) 1.3 K/UL (0.8-4.8); LYMPHOCYTES % (AUTO) 17.2 % (20.5-51.5); MEAN CORPUSCULAR HEMOGLOBIN 29.7 UUG (27.0-31.0); MEAN CORPUSCULAR HGB CONC 33 g/dL (32.0-37.0); MEAN CORPUSCULAR VOLUME 91.6 FL (82.0-92.0); MONOCYTES # (AUTO) 0.7 K/UL (0.1-1.30); NEUTROPHILS % (AUTO) 69.7 % (38.5-71.5); PLATELET COUNT (AUTO) 193 K/UL (150-450); RED BLOOD CELL COUNT(AUTO) 3.68 MIL/UL (4.7-6.1); WHITE BLOOD COUNT (AUTO) 7.3 K/UL (4.0-11.2)
[2017-02-21 08:00] VITALS: BP 122/53
--- NOTE | 2017-02-21 08:15 | NUR ---
Received patient awake, alert and oriented. On O2 at 2 LPM. With patent left upper midline, patent and intact. No complaints of pain at the moment. Not in any form of distress. Call light within reach
[2017-02-21] MEDS: IPRATROPIUM BROMIDE 0.5 MG/2.5 ML NEBU NEB SCH ×4 (08:24→19:15)
[2017-02-21 08:25] LABS: ALANINE AMINOTRANSFERASE 31 U/L (16-63); ALKALINE PHOSPHATASE 75 U/L (50-136); ASPARTATE AMINOTRANSFERASE 19 U/L (15-37); BILIRUBIN,TOTAL 0.2 mg/dL (0.2-1.0); CARBON DIOXIDE 30 mmol/L (21-32); CHLORIDE 107 mmol/L (98-107); CREATININE 1.9 mg/dL (0.6-1.3); GLUCOSE 181 mg/dL (74-106); MAGNESIUM 1.9 mg/dL (1.8-2.4); PHOSPHOROUS 3.2 mg/dL (2.5-4.9); POTASSIUM 5.1 mmol/L (3.5-5.1); TOTAL PROTEIN, SERUM 6.1 g/dL (6.4-8.2); UREA NITROGEN, BLOOD 65 mg/dL (7-18)
[2017-02-21] MEDS: FOLIC ACID/VITAMIN B COMP W-C TABLET PO SCH (08:49)
[2017-02-21] MEDS: PREGABALIN 25 MG CAPSULE PO SCH ×3 (08:49→17:26)
[2017-02-21] MEDS: DUTASTERIDE 0.5 MG CAPSULE PO SCH (08:49)
[2017-02-21] MEDS: ASPIRIN 81 MG TAB.CHEW PO SCH (08:49)
[2017-02-21] MEDS: CLOPIDOGREL 75 MG TABLET PO SCH (08:49)
[2017-02-21] MEDS: AMLODIPINE 5 MG TABLET PO SCH ×2 (08:50→17:25)
[2017-02-21] MEDS: AMIODARONE HCL 200 MG TABLET PO SCH (08:50)
--- NOTE | 2017-02-21 08:50 | NUR ---
Refused to take Ellipta inhalation. Patient claimed that inhalation was brought home by relatives. Discussed risks and benefits and encouraged medication to be brought back to the hospital.
[2017-02-21] MEDS: SILVER SULFADIAZINE 1% CREAM 50 GM TP SCH ×2 (08:51→20:47)
[2017-02-21] MEDS: ANORO ELLIPTA INH SCH (08:51)
--- NOTE | 2017-02-21 13:35 | NUR ---
Up with occupational therapy. Tolerating therapy well. VSS.
[2017-02-21] MEDS: INSULIN REGULAR, HUMAN 300 UNITS/3 ML VIAL SQ PRN (20:46)
[2017-02-21] MEDS: TAMSULOSIN HCL 0.4 MG CAP.SR.24H PO SCH (20:47)
[2017-02-21] MEDS: SIMVASTATIN 20 MG TABLET PO SCH (20:47)
[2017-02-21] MEDS: INCRUSE ELLIPTA 62.5 MCG INH SCH (21:00)
[2017-02-21 22:00] VITALS: BP 136/56
[2017-02-22] MEDS: LEVOTHYROXINE SODIUM 150 MCG TABLET PO SCH (06:17)
[2017-02-22] MEDS: BLOOD SUGAR DIAGNOSTIC 1 EACH STRIP VI SCH ×4 (06:27→20:56)
--- NOTE | 2017-02-22 07:30 | NUR ---
Handoff report. Rounds to pt. Plan: med pass with assessment.
[2017-02-22] MEDS: IPRATROPIUM BROMIDE 0.5 MG/2.5 ML NEBU NEB SCH ×4 (07:31→19:04)
[2017-02-22] MEDS: ASPIRIN 81 MG TAB.CHEW PO SCH (09:19)
[2017-02-22] MEDS: INSULIN REGULAR, HUMAN 300 UNIT/3 ML VIAL SQ PRN ×3 (09:19→17:34)
[2017-02-22] MEDS: CLOPIDOGREL 75 MG TABLET PO SCH (09:19)
[2017-02-22] MEDS: SILVER SULFADIAZINE 1% CREAM 50 GM TP SCH ×2 (09:19→21:04)
[2017-02-22] MEDS: PREGABALIN 25 MG CAPSULE PO SCH ×3 (09:19→17:21)
[2017-02-22] MEDS: FOLIC ACID/VITAMIN B COMP W-C TABLET PO SCH (09:19)
[2017-02-22] MEDS: AMIODARONE HCL 200 MG TABLET PO SCH (09:20)
[2017-02-22] MEDS: DUTASTERIDE 0.5 MG CAPSULE PO SCH (09:20)
[2017-02-22] MEDS: ANORO ELLIPTA INH SCH (09:20)
[2017-02-22] MEDS: AMLODIPINE 5 MG TABLET PO SCH ×2 (09:20→17:21)
--- NOTE | 2017-02-22 10:00 | NUR ---
Rounds with Steam Turbine Assembler. Notes improvement in patient wheezing.
[2017-02-22 10:56] VITALS: BP 137/60
--- NOTE | 2017-02-22 18:50 | NUR ---
Handoff report to night nurse at this time.
--- NOTE | 2017-02-22 19:15 | NUR ---
RECEIVED PATIENT IN BED, NO SOB NO CHEST PAIN NOTED, DENIES PAIN AT THIS TIME. CONTINENT OF BOWEL AND BLADDER, CALL LIGHT WITHIN REACH.
[2017-02-22 20:00] VITALS: BP 132/69
[2017-02-22] MEDS: TAMSULOSIN HCL 0.4 MG CAP.SR.24H PO SCH (20:56)
[2017-02-22] MEDS: SIMVASTATIN 20 MG TABLET PO SCH (20:56)
[2017-02-22] MEDS: INSULIN REGULAR, HUMAN 300 UNITS/3 ML VIAL SQ PRN (21:02)
[2017-02-22] MEDS: INCRUSE ELLIPTA 62.5 MCG INH SCH (21:05)
[2017-02-23] MEDS: BLOOD SUGAR DIAGNOSTIC 1 EACH STRIP VI SCH ×4 (05:57→20:47)
[2017-02-23] MEDS: LEVOTHYROXINE SODIUM 150 MCG TABLET PO SCH (05:59)
--- NOTE | 2017-02-23 06:48 | NUR ---
PATIENT SLEPT MOST OF THE NIGHT, NO SOB NO CHEST PAIN, NO COMPLAINS OF PAIN AT THIS TIME. NO S/S OF HYPO/HYPERGYLCEMIA NOTED, OXYGEN NC CONTINUE, FOR SOB ON EXCERATION, CONT TO MONITOR.
[2017-02-23 07:30] VITALS: BP 115/57
[2017-02-23] MEDS: IPRATROPIUM BROMIDE 0.5 MG/2.5 ML NEBU NEB SCH ×4 (07:42→19:22)
[2017-02-23] MEDS: ASPIRIN 81 MG TAB.CHEW PO SCH (08:31)
[2017-02-23] MEDS: DUTASTERIDE 0.5 MG CAPSULE PO SCH (08:31)
[2017-02-23] MEDS: FOLIC ACID/VITAMIN B COMP W-C TABLET PO SCH (08:31)
[2017-02-23] MEDS: AMLODIPINE 5 MG TABLET PO SCH ×2 (08:31→17:23)
[2017-02-23] MEDS: CLOPIDOGREL 75 MG TABLET PO SCH (08:32)
[2017-02-23] MEDS: PREGABALIN 25 MG CAPSULE PO SCH ×3 (08:32→17:23)
[2017-02-23] MEDS: SILVER SULFADIAZINE 1% CREAM 50 GM TP SCH ×2 (08:32→20:52)
[2017-02-23] MEDS: AMIODARONE HCL 200 MG TABLET PO SCH (08:32)
[2017-02-23] MEDS: ANORO ELLIPTA INH SCH (08:32)
--- NOTE | 2017-02-23 08:55 | NUR ---
HANDOFF REPORT WITH MEDICATION PASS AND AM ASSESSMENT. VITAL SIGNS REVIEWED.
--- NOTE | 2017-02-23 11:00 | NUR ---
ROUNDS TO PATIENT AFTER RETURN FROM THERAPY. SEATED IN CHAIR SLEEPING
--- NOTE | 2017-02-23 12:00 | NUR ---
PATIENT SEATED 90 DEGREE POSITION IN BED AT THIS TIME.
--- NOTE | 2017-02-23 13:00 | NUR ---
PATIENT DRESSING CHANGE AND PICTURES TAKEN AT THIS TIME. ROUNDS WITH ATTENDING MD.
--- NOTE | 2017-02-23 14:32 | NUR ---
REHAB TEAM CONFERENCE 02/23/17
[2017-02-23 15:00] VITALS: BP 148/68
--- NOTE | 2017-02-23 15:00 | NUR ---
PATIENT TAKING A NAP AT THIS TIME.
--- NOTE | 2017-02-23 16:00 | NUR ---
PATIENT DOWN TO THERAPY ROOM AT THIS TIME.
[2017-02-23] MEDS: INSULIN REGULAR, HUMAN 300 UNIT/3 ML VIAL SQ PRN (17:28)
--- NOTE | 2017-02-23 18:00 | NUR ---
ACCUCHECK, BLOOD PRESSURE, INSULIN ADMINISTRATION ON ORDERED SLIDING SCALE. PATIENT SEATED DANGLING IN BED FOR DINNER.
--- NOTE | 2017-02-23 18:21 | NUR ---
HANDOFF REPORT FOR NIGHT NURSE.
[2017-02-23 20:00] VITALS: BP 146/62
[2017-02-23] MEDS: SIMVASTATIN 20 MG TABLET PO SCH (20:47)
[2017-02-23] MEDS: TAMSULOSIN HCL 0.4 MG CAP.SR.24H PO SCH (20:48)
[2017-02-23] MEDS: INCRUSE ELLIPTA 62.5 MCG INH SCH (20:50)
[2017-02-23] MEDS: INSULIN REGULAR, HUMAN 300 UNITS/3 ML VIAL SQ PRN (20:55)
[2017-02-24] MEDS: LEVOTHYROXINE SODIUM 150 MCG TABLET PO SCH (06:41)
[2017-02-24] MEDS: BLOOD SUGAR DIAGNOSTIC 1 EACH STRIP VI SCH ×4 (06:44→20:47)
--- NOTE | 2017-02-24 08:30 | NUR ---
HANDOFF REPORT TAKEN FROM NIGHT NURSE LAST HOUR DURING CHANGE OF SHIFT. MEDICATION PASS WITH ASSESSMENT.
[2017-02-24 08:35] VITALS: BP 148/58
[2017-02-24] MEDS: ASPIRIN 81 MG TAB.CHEW PO SCH (08:54)
[2017-02-24] MEDS: DUTASTERIDE 0.5 MG CAPSULE PO SCH (08:54)
[2017-02-24] MEDS: AMIODARONE HCL 200 MG TABLET PO SCH (08:54)
[2017-02-24] MEDS: PREGABALIN 25 MG CAPSULE PO SCH ×3 (08:54→17:21)
[2017-02-24] MEDS: SILVER SULFADIAZINE 1% CREAM 50 GM TP SCH ×2 (08:54→20:24)
[2017-02-24] MEDS: FOLIC ACID/VITAMIN B COMP W-C TABLET PO SCH (08:54)
[2017-02-24] MEDS: CLOPIDOGREL 75 MG TABLET PO SCH (08:54)
[2017-02-24] MEDS: INSULIN REGULAR, HUMAN 300 UNIT/3 ML VIAL SQ PRN ×3 (08:57→17:25)
[2017-02-24] MEDS: ANORO ELLIPTA INH SCH (08:58)
[2017-02-24] MEDS: AMLODIPINE 5 MG TABLET PO SCH ×2 (08:58→17:21)
[2017-02-24] MEDS: IPRATROPIUM BROMIDE 0.5 MG/2.5 ML NEBU NEB SCH ×4 (09:09→19:08)
--- NOTE | 2017-02-24 12:00 | NUR ---
MEAL TRAY PASS AT THIS TIME BY RABBET OPERATOR. PATIENT SEATED DANGLING IN BED.
--- NOTE | 2017-02-24 14:00 | NUR ---
RETURN FROM THERAPY ROOM AT THIS TIME. GIVEN MEDICATION, LYRICA, AND INSULIN COVERAGE, HUMILIN R, FOR BLOOD GLUCOSE OF 255 MG/DL.
[2017-02-24 17:12] VITALS: BP 126/60
--- NOTE | 2017-02-24 17:42 | NUR ---
PATIENT BLOOD GLUCOSE CHECK 160MG/DL. GIVEN HUMILIN R INSULIN COVERAGE. BLOOD PRESSURE 126/60 MMHG RIGHT ARM LYING. GIVEN BLOOD PRESSURE MEDICATION ORDERED.
--- NOTE | 2017-02-24 18:57 | NUR ---
Handoff report to night nurse.
[2017-02-24 20:14] VITALS: BP 131/61
[2017-02-24] MEDS: TAMSULOSIN HCL 0.4 MG CAP.SR.24H PO SCH (20:24)
[2017-02-24] MEDS: SIMVASTATIN 20 MG TABLET PO SCH (20:24)
[2017-02-24] MEDS: INCRUSE ELLIPTA 62.5 MCG INH SCH (20:47)
[2017-02-25] MEDS: LEVOTHYROXINE SODIUM 150 MCG TABLET PO SCH (06:29)
[2017-02-25] MEDS: BLOOD SUGAR DIAGNOSTIC 1 EACH STRIP VI SCH ×4 (06:32→21:02)
[2017-02-25] MEDS: IPRATROPIUM BROMIDE 0.5 MG/2.5 ML NEBU NEB SCH ×4 (06:57→20:40)
--- NOTE | 2017-02-25 07:15 | NUR ---
HANDOFF REPORT FROM NIGHT NURSE. PATIENT ROUNDS PRIOR. SLEEPING AT THIS TIME.
[2017-02-25 08:52] VITALS: BP 133/59
[2017-02-25] MEDS: CLOPIDOGREL 75 MG TABLET PO SCH (08:57)
[2017-02-25] MEDS: AMIODARONE HCL 200 MG TABLET PO SCH (08:57)
[2017-02-25] MEDS: DUTASTERIDE 0.5 MG CAPSULE PO SCH (08:57)
[2017-02-25] MEDS: FOLIC ACID/VITAMIN B COMP W-C TABLET PO SCH (08:57)
[2017-02-25] MEDS: PREGABALIN 25 MG CAPSULE PO SCH ×3 (08:58→17:33)
[2017-02-25] MEDS: SILVER SULFADIAZINE 1% CREAM 50 GM TP SCH ×2 (08:58→20:33)
[2017-02-25] MEDS: ASPIRIN 81 MG TAB.CHEW PO SCH (08:58)
[2017-02-25] MEDS: AMLODIPINE 5 MG TABLET PO SCH ×2 (08:59→17:33)
[2017-02-25] MEDS: INSULIN REGULAR, HUMAN 300 UNIT/3 ML VIAL SQ PRN ×3 (09:00→17:57)
[2017-02-25] MEDS: ANORO ELLIPTA INH SCH (09:00)
--- NOTE | 2017-02-25 09:15 | NUR ---
PATIENT MEDICATION PASS. TOLERATED 100 % OF BREAKFAST.
--- NOTE | 2017-02-25 10:45 | NUR ---
PATIENT IN THERAPY AT THIS TIME.
[2017-02-25] MEDS: ALBUTEROL SULFATE 1.25 MG/3 ML NEBU NEB PRN (11:39)
--- NOTE | 2017-02-25 12:15 | NUR ---
BLOOD GLUCOSE CHECK, 201 MG/DL. PATIENT TRAY PASS BY INSPECTOR ROUGH CASTINGS.
--- NOTE | 2017-02-25 14:00 | NUR ---
Patient taking a nap at this time.
--- NOTE | 2017-02-25 16:00 | NUR ---
Patient in physical therapy at this time.
--- NOTE | 2017-02-25 17:00 | NUR ---
Patient dressings on legs change. Mid line flush at this time.
--- NOTE | 2017-02-25 18:26 | NUR ---
Patient given insulin, Humilin R, for blood glucose coverage. Tolerated 100% of meal. Needs met at this time.
--- NOTE | 2017-02-25 18:48 | NUR ---
Handoff report for night nurse.
[2017-02-25 20:14] VITALS: BP 120/58
[2017-02-25] MEDS: TAMSULOSIN HCL 0.4 MG CAP.SR.24H PO SCH (20:27)
[2017-02-25] MEDS: SIMVASTATIN 20 MG TABLET PO SCH (20:27)
--- NOTE | 2017-02-25 20:30 | NUR ---
Received patient on bed alert and awake. Able to make needs known. No acute distress noted. No SOB. No c/o pain. Accu check done, 228 mg/dl. 4 units regular insulin given. Patient refused the medication incruse ellipta 62.5mcg and also refused to have the silver sulfadiazine applied to his right lower extremity cellulitis. Asked patient if he wants me to come back to do the dressing change later, patient verbalized "no. forget it. They just did it 2hrs ago. Don't bother doing it again". Vital signs stable. call light within reach. All needs attended. Will continue to monitor.
[2017-02-25] MEDS: INCRUSE ELLIPTA 62.5 MCG INH SCH (20:33)
[2017-02-25] MEDS: INSULIN REGULAR, HUMAN 300 UNITS/3 ML VIAL SQ PRN (21:06)
--- NOTE | 2017-02-25 23:57 | NUR ---
Patient asleep during this time. No acute distress noted. Will continue to monitor.
[2017-02-26] MEDS: LEVOTHYROXINE SODIUM 150 MCG TABLET PO SCH (06:07)
[2017-02-26] MEDS: BLOOD SUGAR DIAGNOSTIC 1 EACH STRIP VI SCH ×4 (06:12→21:06)
--- NOTE | 2017-02-26 06:19 | NUR ---
Patient slept well throughout the shift. Denies pain. No acute distress noted. Accu check done, 131mg/dl. Due meds given and well tolerated. Midline on MONTS[place]AT intact and patent. Call light within reach. All needs attended. Will continue to monitor.
--- NOTE | 2017-02-26 07:10 | NUR ---
RECEIVED REPORT FROM MACHINE STAPLER, PATIENT IN BED SLEEPING, NO EVIDENCE OF DISTRESS NOTED, BED IN LOW POSITION, SIDE RAILS UP X2, CALL LIGHT WITHIN REACH.
[2017-02-26] MEDS: IPRATROPIUM BROMIDE 0.5 MG/2.5 ML NEBU NEB SCH ×4 (07:30→19:08)
[2017-02-26] MEDS: ALBUTEROL SULFATE 1.25 MG/3 ML NEBU NEB PRN (07:30)
[2017-02-26 08:04] VITALS: BP 135/58
[2017-02-26] MEDS: INSULIN REGULAR, HUMAN 300 UNIT/3 ML VIAL SQ PRN ×3 (08:15→17:36)
[2017-02-26] MEDS: AMIODARONE HCL 200 MG TABLET PO SCH (08:16)
[2017-02-26] MEDS: FOLIC ACID/VITAMIN B COMP W-C TABLET PO SCH (08:16)
[2017-02-26] MEDS: CLOPIDOGREL 75 MG TABLET PO SCH (08:17)
[2017-02-26] MEDS: ASPIRIN 81 MG TAB.CHEW PO SCH (08:17)
[2017-02-26] MEDS: DUTASTERIDE 0.5 MG CAPSULE PO SCH (08:17)
[2017-02-26] MEDS: PREGABALIN 25 MG CAPSULE PO SCH ×3 (08:17→17:34)
[2017-02-26] MEDS: ANORO ELLIPTA INH SCH (08:18)
[2017-02-26] MEDS: AMLODIPINE 5 MG TABLET PO SCH ×2 (08:18→17:34)
[2017-02-26] MEDS: SILVER SULFADIAZINE 1% CREAM 50 GM TP SCH ×2 (09:00→23:00)
--- NOTE | 2017-02-26 18:59 | NUR ---
PATIENT HAS BEEN [id number], NO EVIDENCE OF DISTRESS NOTED DURING SHIFT. PATIENT WAS INTERMITTENTLY SLEEPING TODAY AND TOLERATED PT/OT. DRESSING CHANGED ON BOTH LEGS. BED IN LOW POSITION, SIDE RAILS UP X2.
[2017-02-26 19:58] VITALS: BP 133/60
--- NOTE | 2017-02-26 20:00 | NUR ---
PT ALERT IN BED. NO DISTRESS NOTED. BS 185. COVERAGE GIVEN ORDERED. HOB ELEVATED. SAFETY MAINTAINED. CALL LIGHT WITHIN REACH. WILL CONTINUE TO MONITOR.
[2017-02-26] MEDS: INCRUSE ELLIPTA 62.5 MCG INH SCH (21:00)
--- NOTE | 2017-02-26 21:00 | NUR ---
1% SILVER SULFADIAZINE CREAM NOT ON UNIT, CALLED [employer] C[employer] WORKER AND FAXED ORDER FOR ANOTHER TUBE.
[2017-02-26] MEDS: TAMSULOSIN HCL 0.4 MG CAP.SR.24H PO SCH (21:05)
[2017-02-26] MEDS: SIMVASTATIN 20 MG TABLET PO SCH (21:05)
[2017-02-26] MEDS: INSULIN REGULAR, HUMAN 300 UNITS/3 ML VIAL SQ PRN (21:10)
[2017-02-26] MEDS ORDERED: SILVER SULFADIAZINE 1% CREAM 25 GM TUBE TP ONE (22:50)
[2017-02-27] MEDS: BLOOD SUGAR DIAGNOSTIC 1 EACH STRIP VI SCH ×3 (06:40→17:14)
[2017-02-27] MEDS: LEVOTHYROXINE SODIUM 150 MCG TABLET PO SCH (06:40)
--- NOTE | 2017-02-27 07:22 | NUR ---
PT RESTING IN BED. NO DISTRESS NOTED. BS 133. MIDLINE INTACT. NO SIGNIFICANT CHANGES THROUGHOUT THE NIGHT. SAFETY MAINTAINED. CALL LIGHT WITHIN REACH.
--- NOTE | 2017-02-27 07:30 | NUR ---
RECEIVED REPORT FROM MEDICAL CODING SPECIALIST NURSE, PATIENT IN BED SLEEPING. NO EVIDENCE OF DISTRESS NOTED, BED IN LOW POSITION, SIDE RAILS UP X2, BED ALARM ON.
[2017-02-27 08:00] VITALS: BP 143/62
[2017-02-27] MEDS: IPRATROPIUM BROMIDE 0.5 MG/2.5 ML NEBU NEB SCH ×3 (08:42→15:30)
[2017-02-27] MEDS ORDERED: SILVER SULFADIAZINE 1% CREAM 50 GM TP SCH (09:00)
[2017-02-27] MEDS: ANORO ELLIPTA INH SCH (09:00)
[2017-02-27] MEDS: PREGABALIN 25 MG CAPSULE PO SCH ×2 (09:19→12:26)
[2017-02-27] MEDS: DUTASTERIDE 0.5 MG CAPSULE PO SCH (09:20)
[2017-02-27] MEDS: AMIODARONE HCL 200 MG TABLET PO SCH (09:20)
[2017-02-27] MEDS: ASPIRIN 81 MG TAB.CHEW PO SCH (09:20)
[2017-02-27] MEDS: FOLIC ACID/VITAMIN B COMP W-C TABLET PO SCH (09:20)
[2017-02-27 09:21] VITALS: BP 133/60
[2017-02-27] MEDS: AMLODIPINE 5 MG TABLET PO SCH (09:21)
[2017-02-27] MEDS: CLOPIDOGREL 75 MG TABLET PO SCH (09:21)
[2017-02-27] MEDS: INSULIN REGULAR, HUMAN 300 UNIT/3 ML VIAL SQ PRN ×2 (09:25→12:08)
[2017-02-27] MEDS ORDERED: INSU100V7 SQ (15:11)
[2017-02-27] MEDS ORDERED: AMIO200T6 PO (15:11)
[2017-02-27] MEDS ORDERED: ACET325S8 INH (15:11)
[2017-02-27] MEDS ORDERED: FOLI0.8T2 PO (15:11)
[2017-02-27] MEDS ORDERED: ASPI81TA31 PO (15:11)
[2017-02-27] MEDS ORDERED: CLOP75TA15 PO (15:11)
[2017-02-27] MEDS ORDERED: BLOO-296 MC (15:11)
[2017-02-27] MEDS ORDERED: INSU100I14 SQ (15:11)
[2017-02-27] MEDS ORDERED: TAMS-3 PO (15:11)
[2017-02-27] MEDS ORDERED: AMLO5TAB2 PO (15:11)
[2017-02-27] MEDS ORDERED: DUTA0.5C PO (15:11)
[2017-02-27] MEDS ORDERED: BLOO1EAC70 MC (15:11)
[2017-02-27] MEDS ORDERED: SIMV20TA6 PO (15:11)
[2017-02-27] MEDS ORDERED: PREG25CA PO (15:11)
[2017-02-27] MEDS ORDERED: LEVO150T PO (15:11)
--- NOTE | 2017-02-27 17:10 | NUR ---
PATIENT WAS GIVEN DISCHARGE INSTRUCTION, MEDICATION EDUCATION, AND INFORMATION ABOUT CHF, WEAKNESS, AND DEHYDRATION ALONG WITH SMOKING CESSATION INFORMATION, MIDLINE WAS TAKEN OUT AND PATIENT WAS WHEELED TO PARKING AREA WHERE HE WAS MET BY . PATIENT'S O2 SATURATION SUSTAINED AT 95% WITHOUT OXYGEN, NO EVIDENCE OF DISTRESS NOTED.
== END 2017-02-27 17:10 | disposition home or self-care (01) | DRG 871 ==
PROVIDERS: ADMIT Physical Medicine & Rehabilitation Pain Medicine; ATTEND Physical Medicine & Rehabilitation Pain Medicine
DX: A41.9 Sepsis, unspecified organism (principal); E43 Unspecified severe protein-calorie malnutrition; J69.0 Pneumonitis due to inhalation of food and vomit; N17.0 Acute kidney failure with tubular necrosis; E11.22 Type 2 diabetes mellitus with diabetic chronic kidney disease; D68.59 Other primary thrombophilia; I50.32 Chronic diastolic (congestive) heart failure; I13.0 Hypertensive heart and chronic kidney disease with heart failure and stage 1 through stage 4 chronic kidney disease, or unspecified chronic kidney disease; K76.1 Chronic passive congestion of liver; J44.0 Chronic obstructive pulmonary disease with (acute) lower respiratory infection; L03.116 Cellulitis of left lower limb; L03.115 Cellulitis of right lower limb; L97.909 Non-pressure chronic ulcer of unspecified part of unspecified lower leg with unspecified severity; J98.11 Atelectasis; E11.65 Type 2 diabetes mellitus with hyperglycemia; I48.91 Unspecified atrial fibrillation; I49.5 Sick sinus syndrome; I27.2 Other secondary pulmonary hypertension; N18.9 Chronic kidney disease, unspecified; E03.9 Hypothyroidism, unspecified; I25.2 Old myocardial infarction; I25.10 Atherosclerotic heart disease of native coronary artery without angina pectoris; I87.2 Venous insufficiency (chronic) (peripheral); Z85.118 Personal history of other malignant neoplasm of bronchus and lung; Z95.1 Presence of aortocoronary bypass graft; Z95.0 Presence of cardiac pacemaker; I83.009 Varicose veins of unspecified lower extremity with ulcer of unspecified site; E66.9 Obesity, unspecified; Z68.37 Body mass index [BMI] 37.0-37.9, adult; R26.2 Difficulty in walking, not elsewhere classified; R79.89 Other specified abnormal findings of blood chemistry; E78.5 Hyperlipidemia, unspecified; E86.0 Dehydration; D64.9 Anemia, unspecified; K21.9 Gastro-esophageal reflux disease without esophagitis; N40.0 Benign prostatic hyperplasia without lower urinary tract symptoms; Z87.891 Personal history of nicotine dependence; I73.9 Peripheral vascular disease, unspecified; E87.5 Hyperkalemia; Z90.2 Acquired absence of lung [part of]
CPT/HCPCS: 36415; 71010; 83735; 84100; 84133; 84156; 84300; 85025; 92610; 94640; 94664; 97110; 97112; 97116; 97161; 97530; 97535; A4663; J1815; J3590

== ENCOUNTER 2018-03-08 21:45 | Inpatient (IN) | payer MEDICARE, MEDICAID ==
[~2018-03-08] VITALS: Ht 175.3 cm; Wt 102.1 kg
[~2018-03-08 21:45] MED LIST changes: +ACET325S8 INH; -AMIO200T2 PO; +AMIO200T6 PO; -AMLO5TAB2 PO; +AMLO5TAB7 PO; -APIX2.5T PO; -BLOO-140 IN; +BLOO-296 MC; +BLOO1EAC70 MC; -FEBU40TA PO; +FOLI0.8T2 PO; -FOLI0.8T23 PO; -FURO-151 PO; +INSU100I14 SQ; -INSU100V11 SUBCUT; +INSU100V7 SQ; -LANTUS SUBCUT; +LEVO150T PO; -LEVO150T8 PO; -NEBI10TA2 PO; +PREG25CA PO; -PREG75CA PO; -VALS80TA2 PO
[2018-03-08] MEDS ORDERED: Z GUARD REMEDY PASTE 57 GM TUBE TOP PRN (22:00)
[2018-03-08 22:10] VITALS: BP 178/31
[2018-03-08] MEDS ORDERED: ACET-73 PO (22:11)
[2018-03-08] MEDS ORDERED: FOLI0.8T PO (22:11)
[2018-03-08] MEDS ORDERED: ASPI81TA31 PO (22:11)
[2018-03-08] MEDS ORDERED: FOLI1CAP7 PO (22:11)
[2018-03-08] MEDS ORDERED: CLON0.3P TD (22:11)
[2018-03-08] MEDS ORDERED: LEVO150T8 PO (22:11)
[2018-03-08] MEDS ORDERED: INSU100I14 SUBCUT (22:11)
[2018-03-08] MEDS ORDERED: AMIO200T4 PO (22:11)
[2018-03-08] MEDS ORDERED: DOCU100C36 PO (22:11)
[2018-03-08] MEDS ORDERED: PREG75CA PO (22:11)
[2018-03-08] MEDS ORDERED: TAMS0.4C34 PO (22:11)
[2018-03-08] MEDS ORDERED: RIVA10TA PO (22:11)
[2018-03-08] MEDS ORDERED: AMLO2.5T3 PO (22:11)
[2018-03-08] MEDS ORDERED: LEVO175T7 PO (22:11)
[2018-03-08] MEDS ORDERED: UMEC1BLS IH (22:11)
[2018-03-08] MEDS ORDERED: SIMV20TA6 PO (22:11)
[2018-03-08] MEDS ORDERED: DUTA0.5C PO (22:11)
[2018-03-08] MEDS ORDERED: FEBU40TA PO (22:11)
--- NOTE | 2018-03-08 23:00 | NUR ---
Mr. Stone is a 77 y/o male patient admitted to Acute Rehab room 123-A Dx. CHF. Per patient's medical record patient's medical history includes CAD, PVD, Lower extremity DVT (IVC filter), Permanent pacemaker, Hypertension, Hyperlipidemia, CVA (LLE weakness), Chronic kidney disease, Anemia, Diabetes, & COPD. Patient is awake alert & oriented, no SOB denies chest pain. Admission assessment initiated, noted large scab on bilateral knee & diabetic foot ulcers (see pictures in chart) patient stated he got it from a trip & fall accident at home. Seen & examined by Dr. Carmen. Orders received. For wound consult in AM. Paged Dr. Gavin for med recon/further orders.
[2018-03-08] MEDS ORDERED: ACETAMINOPHEN ES 500 MG TABLET PO PRN (23:15)
--- NOTE | 2018-03-09 01:00 | NUR ---
Patient asleep resting comfortably. Urinal at bedside fall precaution observed.
[2018-03-09] MEDS: LEVOTHYROXINE SODIUM 150 MCG TABLET PO SCH (06:20)
[2018-03-09 06:30] VITALS: BP 126/41
--- NOTE | 2018-03-09 06:50 | NUR ---
Patient slept well throughout the night. No acute distress, assisted with all needs, call light within reach.
[2018-03-09 08:12] VITALS: BP 158/56
[2018-03-09] MEDS ORDERED: PREGABALIN 25 MG CAPSULE PO SCH (09:00)
[2018-03-09] MEDS ORDERED: CLONIDINE-TTS 3 PATCH TD SCH (09:00)
[2018-03-09] MEDS ORDERED: RIVAROXABAN 10 MG TABLET PO SCH ×2 (09:00→18:00)
[2018-03-09] MEDS ORDERED: DOCUSATE SODIUM 100 MG CAPSULE PO SCH (09:00)
[2018-03-09] MEDS: DOCUSATE SODIUM 250 MG CAPSULE PO SCH ×2 (09:05→20:58)
[2018-03-09] MEDS: DUTASTERIDE 0.5 MG CAPSULE PO SCH (09:05)
[2018-03-09] MEDS: ASPIRIN 81 MG TAB.CHEW PO SCH (09:05)
[2018-03-09] MEDS: AMIODARONE HCL 200 MG TABLET PO SCH (09:06)
[2018-03-09] MEDS: AMLODIPINE 2.5 MG TABLET PO SCH ×2 (09:06→20:58)
[2018-03-09] MEDS: FOLIC ACID/VITAMIN B COMP W-C TABLET PO SCH (09:06)
[2018-03-09] MEDS ORDERED: DEXTROSE 50% 50 ML DISP.SYRIN IV PRN (12:00)
[2018-03-09 16:22] VITALS: BP 132/67
[2018-03-09] MEDS: CLONIDINE-TTS 3 PATCH TD SCH (16:49)
[2018-03-09] MEDS: PREGABALIN 25 MG CAPSULE PO SCH ×2 (16:51→17:09)
[2018-03-09] MEDS: BLOOD SUGAR DIAGNOSTIC 1 EACH STRIP VI SCH ×2 (16:53→21:03)
[2018-03-09] MEDS: INSULIN REGULAR, HUMAN 300 UNIT/3 ML VIAL SQ PRN ×2 (17:17→21:08)
[2018-03-09] MEDS: RIVAROXABAN 15 MG TABLET PO SCH (18:32)
--- NOTE | 2018-03-09 19:10 | NUR ---
RECEIVED PT AWAKE ON BED, AAOX3, NO SOB, DENIES ANY CHEST PAIN. SAFETY MEASURES INITIATED, CALL FREEMAN WITHIN REACH.
[2018-03-09 19:58] LABS: POTASSIUM 4.9 mmol/L (3.5-5.1)
[2018-03-09 20:23] VITALS: BP 139/64
[2018-03-09 20:26] LABS: THYROID STIMULATING HORMONE 7.96 mIU/mL (0.358-3.740)
[2018-03-09] MEDS: TAMSULOSIN HCL 0.4 MG CAP.SR.24H PO SCH (20:58)
[2018-03-09] MEDS: SIMVASTATIN 20 MG TABLET PO SCH (20:58)
[2018-03-10 05:03] VITALS: BP 144/69
[2018-03-10] MEDS: LEVOTHYROXINE SODIUM 150 MCG TABLET PO SCH (06:39)
--- NOTE | 2018-03-10 06:50 | NUR ---
PT RESTING COMFORTABLY ON BED. DENIES ANY SOB OR CHEST PAIN. PT HAS BEEN COMPLIANT WITH CARE. ALL NEEDS ATTENDED AND MET. SAFE ENVIRONMENT MAINTAINED AT ALL TIMES, CALL FREEMAN WITHIN REACH.
[2018-03-10 07:10] LABS: BASOPHILS # (AUTO) 0.1 K/uL (0.0-8.0); BASOPHILS % (AUTO) 1.2 % (0.0-2.0); EOSINOPHILS # (AUTO) 0.2 K/uL (0.0-0.7); HEMATOCRIT 34.5 % (36.7-47.1); HEMOGLOBIN 11.5 g/dL (12.5-16.3); LYMPHOCYTES # (AUTO) 1.1 K/uL (20.0-40.0); LYMPHOCYTES % (AUTO) 19.7 % (20.5-51.5); MEAN CORPUSCULAR HEMOGLOBIN 30.5 uug (23.8-33.4); MEAN CORPUSCULAR HGB CONC 33 g/dL (32.5-36.3); MEAN CORPUSCULAR VOLUME 91.7 fL (73.0-96.2); MONOCYTES # (AUTO) 0.5 K/uL (2.0-10.0); MONOCYTES % (AUTO) 9.8 % (0.0-11.0); NEUTROPHILS # (AUTO) 3.6 K/uL (1.8-8.9); NEUTROPHILS % (AUTO) 66.3 % (38.5-71.5); PLATELET COUNT (AUTO) 172 K/uL (152-348); RED BLOOD CELL COUNT(AUTO) 3.76 MIL/uL (4.06-5.63); WHITE BLOOD COUNT (AUTO) 5.5 K/uL (3.6-10.2)
[2018-03-10 07:21] LABS: CARBON DIOXIDE 25 mmol/L (21-32); CHLORIDE 109 mmol/L (98-107); CREATININE 1.8 mg/dL (0.6-1.3); GLUCOSE 133 mg/dL (74-106); PHOSPHOROUS 3.4 mg/dL (2.5-4.9); POTASSIUM 4.7 mmol/L (3.5-5.1); UREA NITROGEN, BLOOD 56 mg/dL (7-18)
[2018-03-10] MEDS: INSULIN REGULAR, HUMAN 300 UNIT/3 ML VIAL SQ PRN ×3 (08:01→21:20)
[2018-03-10] MEDS: BLOOD SUGAR DIAGNOSTIC 1 EACH STRIP VI SCH ×4 (08:01→21:16)
[2018-03-10 08:09] VITALS: BP 124/48
[2018-03-10] MEDS: DUTASTERIDE 0.5 MG CAPSULE PO SCH (09:46)
[2018-03-10] MEDS: DOCUSATE SODIUM 250 MG CAPSULE PO SCH ×2 (09:46→21:14)
[2018-03-10] MEDS: AMLODIPINE 2.5 MG TABLET PO SCH ×2 (09:47→21:15)
[2018-03-10] MEDS: ASPIRIN 81 MG TAB.CHEW PO SCH (09:47)
[2018-03-10] MEDS: FOLIC ACID/VITAMIN B COMP W-C TABLET PO SCH (09:47)
[2018-03-10] MEDS: AMIODARONE HCL 200 MG TABLET PO SCH (09:47)
[2018-03-10] MEDS: PREGABALIN 25 MG CAPSULE PO SCH ×3 (09:47→16:50)
--- NOTE | 2018-03-10 11:26 | NUR ---
WOUND CARE CONSULT: PT PRESENTS WITH BILATERAL BELOW KNEE WOUNDS, RT 2ND TOE TRAUMATIC WOUND AND BRUISING, REDNESS AND SWELLING TO FEET, PRESENT ON ADMISSION. RECOMMEND DPM CONSULT. PT DENIED NEED FOR FULL BODY SKIN ASSESSMENT. RECOMMENDATIONS MADE FOR WOUND CARE AND SKIN PROTECTION. DISCUSSED WITH NURSING STAFF. WILL SEE PRN. VALDEZ IN AGREEMENT WITH PLAN OF CARE. Addendum: 03/10/18 at 1128 by JADA SANTIZO RN Amended: Links added.
--- NOTE | 2018-03-10 15:06 | NUR ---
INTERDISCIPLINARY TEAM CONFERENCE
[2018-03-10 16:25] VITALS: BP 150/48
[2018-03-10] MEDS: ULORIC 40 MG PO SCH (16:50)
[2018-03-10] MEDS: RIVAROXABAN 15 MG TABLET PO SCH (18:14)
--- NOTE | 2018-03-10 18:40 | NUR ---
Patient watching television. Tolerated evening meal. Handoff to night nurse.
[2018-03-10 20:00] VITALS: BP 149/53
--- NOTE | 2018-03-10 20:00 | NUR ---
Received pt. in bed resting, alert, awake, oriented x 4, in Room Air with 02 sat. of 95 %, no s/s of dyspnea, no s/s of RR distress. Breathing regular, symmetrical and unlabored. Lungs sound diminished to clear. Pt. denies chest pain or any pain when assessed @ around this time. Pt. with pacemaker. Not indicated for any MRI Radiologic/lab. test. Pt. abdomen soft, rounded and nontender with bowel sounds present, BM x 1 today during the day, no BM @ this time. Pt. incontinent of urine, using urinal @ the bedside. Pt. on bedrest with walker @ the bedside. Pt. able to swallow food or meds. without difficulty. Provided pt. bedside nsg. care and assisted with adl's and needs. Keep pt. safe, warm and maintained a quiet environment.
[2018-03-10] MEDS: TAMSULOSIN HCL 0.4 MG CAP.SR.24H PO SCH (21:15)
[2018-03-10] MEDS: SIMVASTATIN 20 MG TABLET PO SCH (21:15)
[2018-03-11 04:00] VITALS: BP 123/43
[2018-03-11] MEDS: LEVOTHYROXINE SODIUM 175 MCG TABLET PO SCH (06:30)
[2018-03-11] MEDS: BLOOD SUGAR DIAGNOSTIC 1 EACH STRIP VI SCH ×4 (06:33→21:18)
[2018-03-11] MEDS ORDERED: LEVOTHYROXINE SODIUM 150 MCG TABLET PO SCH (07:30)
--- NOTE | 2018-03-11 07:41 | NUR ---
Rec'd pt in bed, asleep. Easily arousable to name. Pt on RA, no SOB noted. No significant events overnight. No s.s of acute distress noted. All safety precautions in place. Will continue to monitor for change.
[2018-03-11 08:00] VITALS: BP 151/50
[2018-03-11] MEDS: PREGABALIN 25 MG CAPSULE PO SCH ×3 (08:47→17:30)
[2018-03-11] MEDS: AMLODIPINE 2.5 MG TABLET PO SCH ×2 (08:48→21:22)
[2018-03-11] MEDS: DOCUSATE SODIUM 250 MG CAPSULE PO SCH ×2 (08:48→21:00)
[2018-03-11] MEDS: FOLIC ACID/VITAMIN B COMP W-C TABLET PO SCH (08:48)
[2018-03-11] MEDS: ASPIRIN 81 MG TAB.CHEW PO SCH (08:48)
[2018-03-11] MEDS: AMIODARONE HCL 200 MG TABLET PO SCH (08:48)
[2018-03-11] MEDS: DUTASTERIDE 0.5 MG CAPSULE PO SCH (08:52)
[2018-03-11] MEDS: ULORIC 40 MG PO SCH (08:52)
[2018-03-11] MEDS: INSULIN REGULAR, HUMAN 300 UNIT/3 ML VIAL SQ PRN ×3 (12:25→21:18)
--- NOTE | 2018-03-11 12:40 | NUR ---
Rec'd instructions from X-ray tech to call Dr. Fuentes Radiologist at . Spoke with Dr. Fuentes. Per , relay positive x-ray results to Dr. Bauer and have him contact Dr. Fuentes to discuss the results. Paged Luis Mendoza (Podiatric Surgeon). Awaiting call back.
--- NOTE | 2018-03-11 13:00 | NUR ---
Rec'd call back from Dr. Bauer and relayed pt's right 2nd toe x-ray results. Provided him with Dr. Marinelli's contact info. No new orders at this time.
[2018-03-11 16:12] VITALS: BP 146/54
[2018-03-11] MEDS: RIVAROXABAN 15 MG TABLET PO SCH (17:33)
[2018-03-11 21:00] VITALS: BP 143/56
[2018-03-11] MEDS: SIMVASTATIN 20 MG TABLET PO SCH (21:22)
[2018-03-11] MEDS: TAMSULOSIN HCL 0.4 MG CAP.SR.24H PO SCH (21:22)
[2018-03-11 21:57] VITALS: BP 143/56
[2018-03-12 05:44] VITALS: BP 127/51
[2018-03-12] MEDS: LEVOTHYROXINE SODIUM 175 MCG TABLET PO SCH (06:49)
[2018-03-12] MEDS: BLOOD SUGAR DIAGNOSTIC 1 EACH STRIP VI SCH ×4 (07:30→20:54)
[2018-03-12 08:00] VITALS: BP 128/46
[2018-03-12] MEDS: INSULIN REGULAR, HUMAN 300 UNIT/3 ML VIAL SQ PRN ×4 (08:40→21:03)
[2018-03-12] MEDS: ULORIC 40 MG PO SCH (09:00)
[2018-03-12] MEDS: AMLODIPINE 2.5 MG TABLET PO SCH ×2 (09:53→20:54)
[2018-03-12] MEDS: ASPIRIN 81 MG TAB.CHEW PO SCH (09:53)
[2018-03-12] MEDS: DOCUSATE SODIUM 250 MG CAPSULE PO SCH ×2 (09:53→21:00)
[2018-03-12] MEDS: PREGABALIN 25 MG CAPSULE PO SCH ×3 (09:53→16:28)
[2018-03-12] MEDS: FOLIC ACID/VITAMIN B COMP W-C TABLET PO SCH (09:53)
[2018-03-12] MEDS: ACETAMINOPHEN ES 500 MG TABLET PO PRN (09:54)
[2018-03-12] MEDS: AMIODARONE HCL 200 MG TABLET PO SCH (09:54)
[2018-03-12] MEDS: DUTASTERIDE 0.5 MG CAPSULE PO SCH (09:55)
--- NOTE | 2018-03-12 10:11 | NUR ---
Notified Doctor Erik about patient pain from fall at home between to automobiles is also on left lateral lower extremity. Patient is fearful he broke his lower extremity. Gave as needed tylenol for pain.
--- NOTE | 2018-03-12 10:55 | NUR ---
Elevated left lower extremity in bed after physical therapy and shower this morning.
[2018-03-12 14:06] LABS: VIT D, 25-HYDROXY 38.2 ng/mL (30.0-100.0)
[2018-03-12 16:00] VITALS: BP 112/54
[2018-03-12] MEDS: RIVAROXABAN 15 MG TABLET PO SCH (18:32)
--- NOTE | 2018-03-12 19:22 | NUR ---
Handoff to night nurse CAROLINA Moore. Derek Menendez RN
[2018-03-12 19:56] VITALS: BP 135/63
[2018-03-12 19:59] VITALS: BP 135/63
[2018-03-12] MEDS: TAMSULOSIN HCL 0.4 MG CAP.SR.24H PO SCH (20:53)
[2018-03-12] MEDS: SIMVASTATIN 20 MG TABLET PO SCH (20:53)
--- NOTE | 2018-03-12 21:43 | NUR ---
Received pt resting in bed and watching TV. AAO x4. No acute distress noted. No c/o pain or discomfort at this time. Refused colace. Risks and benefits explained x3, still refused. Uses urinal. Continent both bowel and bladder. Had BM x1. Safety measures maintained. Encouraged pt to use call light. Call light and personal belongings within reach. Will continue to monitor.
[2018-03-13 06:13] VITALS: BP 136/59
[2018-03-13] MEDS: ACETAMINOPHEN ES 500 MG TABLET PO PRN (06:17)
[2018-03-13] MEDS: LEVOTHYROXINE SODIUM 175 MCG TABLET PO SCH (06:17)
[2018-03-13] MEDS: BLOOD SUGAR DIAGNOSTIC 1 EACH STRIP VI SCH ×4 (06:44→21:32)
--- NOTE | 2018-03-13 07:30 | NUR ---
Received pt in bed A/Ox4. No acute distress noted. Pt. c/o of LT. foot pain (01/17 P.S). All due meds given as ordered. Pt. refused colace, stated "I't makes my stool watery", explained and discussed risk and benefits x 3, pt. still refused. Dr. Valencia promptly made aware of pt. c/o lt. foot pain, MD with order for LT. Foot complete x-ray, order carried out accordingly.BLE floated with pillow. Pt. continent of B&B with x 1 BM. Wound care as ordered .No s/sx of hypo/hyperglycemia noted. Safety measures maintained. Encouraged pt to use call light. Call light and all frequently used items within reach. Will continue to monitor.
[2018-03-13] MEDS: DOCUSATE SODIUM 250 MG CAPSULE PO SCH ×2 (09:00→21:00)
[2018-03-13] MEDS: AMLODIPINE 2.5 MG TABLET PO SCH ×2 (09:34→21:28)
[2018-03-13] MEDS: PREGABALIN 25 MG CAPSULE PO SCH ×3 (09:35→17:09)
[2018-03-13] MEDS: FOLIC ACID/VITAMIN B COMP W-C TABLET PO SCH (09:35)
[2018-03-13] MEDS: AMIODARONE HCL 200 MG TABLET PO SCH (09:35)
[2018-03-13] MEDS: ULORIC 40 MG PO SCH (09:36)
[2018-03-13] MEDS: DUTASTERIDE 0.5 MG CAPSULE PO SCH (09:36)
[2018-03-13] MEDS: ASPIRIN 81 MG TAB.CHEW PO SCH (09:36)
[2018-03-13] MEDS: INSULIN REGULAR, HUMAN 300 UNIT/3 ML VIAL SQ PRN ×3 (12:13→21:37)
[2018-03-13 15:38] VITALS: BP 133/45
[2018-03-13] MEDS: RIVAROXABAN 15 MG TABLET PO SCH (17:09)
--- NOTE | 2018-03-13 18:55 | NUR ---
Received and relayed CT and X-ray of LLE to Dr. Ibrahim. with order for Percocet 5-325mg po q6h PRN for pain, NWB on LLE, and ortho consult in AM. Touch based with Dr. Puga for ortho consult. All orders noted and carried out. Pt. made aware. Pt. teaching provided, pt. verbalized clear understanding with no further concerns. Will endorse to oncoming shift accordingly.
--- NOTE | 2018-03-13 19:25 | NUR ---
Sleeping during initial rounds. HOB slightly elevated. No s/s of pain/discomforts noted at this time. Safety measures and fall precaution maintained. Continue current plan of care.
[2018-03-13 19:30] VITALS: BP 101/79
--- NOTE | 2018-03-13 21:00 | NUR ---
Patient became upset when reviewing with him medication due for 2100. Instructed patient that there's nothing to be upset about. Just to say it in a nice way that he doesn't want to take it and no worries. Again, he refused his Colace for tonight.
[2018-03-13] MEDS: TAMSULOSIN HCL 0.4 MG CAP.SR.24H PO SCH (21:27)
[2018-03-13] MEDS: SIMVASTATIN 20 MG TABLET PO SCH (21:27)
[2018-03-14 04:30] VITALS: BP 132/48
[2018-03-14] MEDS: LEVOTHYROXINE SODIUM 175 MCG TABLET PO SCH (06:33)
[2018-03-14] MEDS: BLOOD SUGAR DIAGNOSTIC 1 EACH STRIP VI SCH ×4 (06:33→21:23)
--- NOTE | 2018-03-14 07:14 | NUR ---
Shift End Report: Slept well. No fall/injury reported. No s/s of hypo/hyperglycemia. BS monitored. No fall/injury. All needs attended and met. No significant event reported. Continue current rehab plan of care.
[2018-03-14] MEDS: PREGABALIN 25 MG CAPSULE PO SCH ×3 (08:11→17:10)
[2018-03-14] MEDS: INSULIN REGULAR, HUMAN 300 UNIT/3 ML VIAL SQ PRN ×4 (08:12→21:27)
[2018-03-14] MEDS: AMLODIPINE 2.5 MG TABLET PO SCH ×2 (08:13→21:21)
[2018-03-14] MEDS: AMIODARONE HCL 200 MG TABLET PO SCH (08:13)
[2018-03-14] MEDS: ULORIC 40 MG PO SCH (08:14)
[2018-03-14] MEDS: FOLIC ACID/VITAMIN B COMP W-C TABLET PO SCH (08:14)
[2018-03-14] MEDS: ASPIRIN 81 MG TAB.CHEW PO SCH (08:14)
[2018-03-14] MEDS: DUTASTERIDE 0.5 MG CAPSULE PO SCH (08:14)
[2018-03-14] MEDS: DOCUSATE SODIUM 250 MG CAPSULE PO SCH ×2 (08:22→21:00)
[2018-03-14] MEDS: OXYCODONE/APAP 5-325 MG TABLET PO PRN ×2 (08:30→21:30)
--- NOTE | 2018-03-14 08:30 | NUR ---
Received patient, awake, alert x4. Resting in bed, with pain over left leg rated as 8/10. Non radiating. PRN Percocet given. Not in any form of distress. NO SOB, chest pains or dizziness. Instructed patient to call for needs and not to bear weight on left leg until cleared by DR. Will continue to monitor.
[2018-03-14 11:14] VITALS: BP 122/50
--- NOTE | 2018-03-14 12:10 | NUR ---
Resting in bed. Still awaiting assessment from Orthopedist for weight bearing status.
[2018-03-14 15:41] VITALS: BP 121/44
[2018-03-14] MEDS: RIVAROXABAN 15 MG TABLET PO SCH (17:16)
--- NOTE | 2018-03-14 18:39 | NUR ---
PAGED DR. OWUSU THROUGH EXCHANGE FOR CONSULTATION, AWAITING FOR CALL BACK.
--- NOTE | 2018-03-14 19:00 | NUR ---
Sleeping during initial rounds. No s/s of respiratory distress. Safety measures and fall precaution maintained.
[2018-03-14 20:04] VITALS: BP 135/67
[2018-03-14] MEDS: SIMVASTATIN 20 MG TABLET PO SCH (21:21)
[2018-03-14] MEDS: TAMSULOSIN HCL 0.4 MG CAP.SR.24H PO SCH (21:21)
[2018-03-15 04:45] VITALS: BP 119/60
[2018-03-15] MEDS: LEVOTHYROXINE SODIUM 175 MCG TABLET PO SCH (05:47)
[2018-03-15] MEDS: BLOOD SUGAR DIAGNOSTIC 1 EACH STRIP VI SCH ×4 (05:47→21:29)
[2018-03-15] MEDS: OXYCODONE/APAP 5-325 MG TABLET PO PRN ×2 (05:50→21:28)
--- NOTE | 2018-03-15 07:01 | NUR ---
Shift End Report: Slept good. Medicated once for pain with relief. No fall/injury reported. All needs attended and met. Refused 2x attempts for wound picture. Will endorse. Continue care as planned.
--- NOTE | 2018-03-15 08:00 | NUR ---
Patient awake, sitting up in bed, having breakfast, not in any form of acute distress. He denies any pain or discomfort. Call light placed within reach. Assisted with his needs.
[2018-03-15 08:15] VITALS: BP 149/50
[2018-03-15] MEDS: DOCUSATE SODIUM 250 MG CAPSULE PO SCH ×2 (09:00→21:00)
[2018-03-15] MEDS: AMLODIPINE 2.5 MG TABLET PO SCH ×2 (09:26→21:18)
[2018-03-15] MEDS: ASPIRIN 81 MG TAB.CHEW PO SCH (09:26)
[2018-03-15] MEDS: FOLIC ACID/VITAMIN B COMP W-C TABLET PO SCH (09:26)
[2018-03-15] MEDS: AMIODARONE HCL 200 MG TABLET PO SCH (09:26)
[2018-03-15] MEDS: PREGABALIN 25 MG CAPSULE PO SCH ×3 (09:27→17:57)
[2018-03-15] MEDS: ULORIC 40 MG PO SCH (09:27)
[2018-03-15] MEDS: DUTASTERIDE 0.5 MG CAPSULE PO SCH (09:27)
[2018-03-15] MEDS: INSULIN REGULAR, HUMAN 300 UNIT/3 ML VIAL SQ PRN ×3 (12:10→21:27)
--- NOTE | 2018-03-15 13:00 | NUR ---
Vice President Of Operations Dr. Jiang saw patient with no new order.
--- NOTE | 2018-03-15 13:15 | NUR ---
Notified Dr. Gavin who is in the unit regarding result of left ankle CT scan and MD stated he will contact Ortho Dr. Puga.
[2018-03-15 14:06] LABS: CALCITRIOL VIT D,1,25 DIHYDROX 37.7 pg/mL (19.9-79.3)
[2018-03-15 16:37] VITALS: BP 144/56
[2018-03-15] MEDS: RIVAROXABAN 15 MG TABLET PO SCH (18:03)
--- NOTE | 2018-03-15 19:15 | NUR ---
Watching TV during initial rounds. Denies any pain/discomforts at this time. Continue care as planned.
[2018-03-15 20:29] VITALS: BP 139/55
[2018-03-15] MEDS: TAMSULOSIN HCL 0.4 MG CAP.SR.24H PO SCH (21:18)
[2018-03-15] MEDS: SIMVASTATIN 20 MG TABLET PO SCH (21:18)
[2018-03-16] MEDS: LEVOTHYROXINE SODIUM 175 MCG TABLET PO SCH (05:58)
--- NOTE | 2018-03-16 06:24 | NUR ---
Shift End Report: Slept good. No s/s of hypo/hyperglycemia. Medicated once for pain with relief. No further complaint presented. No fall/injury reported. All needs attended and met. No significant event reported all night. Continue current rehab plan of care.
[2018-03-16 07:10] VITALS: BP 126/75
[2018-03-16 08:00] VITALS: BP 141/54
--- NOTE | 2018-03-16 08:30 | NUR ---
Received patient, awake, alert x4. resting at bed. No complaints of pain at the moment. Not in any form of distress. Instructed patient to maintain non-weight bearing status until, cleared by Orthopedist.
[2018-03-16] MEDS: BLOOD SUGAR DIAGNOSTIC 1 EACH STRIP VI SCH ×4 (08:34→20:59)
[2018-03-16] MEDS: DOCUSATE SODIUM 250 MG CAPSULE PO SCH ×3 (09:00→21:00)
--- NOTE | 2018-03-16 09:20 | NUR ---
Refused Colace, patient said he does not need it. Discussed risks and benefits but patient still refused.
--- NOTE | 2018-03-16 09:24 | NUR ---
Up with occupational therapy. Tolerating well.
[2018-03-16] MEDS: ASPIRIN 81 MG TAB.CHEW PO SCH (10:00)
[2018-03-16] MEDS: DUTASTERIDE 0.5 MG CAPSULE PO SCH (10:00)
[2018-03-16] MEDS: PREGABALIN 25 MG CAPSULE PO SCH ×3 (10:01→17:57)
[2018-03-16] MEDS: FOLIC ACID/VITAMIN B COMP W-C TABLET PO SCH (10:01)
[2018-03-16] MEDS: ULORIC 40 MG PO SCH (10:02)
[2018-03-16] MEDS: AMIODARONE HCL 200 MG TABLET PO SCH (10:02)
[2018-03-16] MEDS: AMLODIPINE 2.5 MG TABLET PO SCH ×2 (10:02→21:00)
[2018-03-16] MEDS: INSULIN REGULAR, HUMAN 300 UNIT/3 ML VIAL SQ PRN ×2 (12:04→20:56)
[2018-03-16] MEDS: CLONIDINE-TTS 3 PATCH TD SCH (12:13)
--- NOTE | 2018-03-16 12:50 | NUR ---
Paged Dr. Puga through exchange, still awaiting for call back per Gonzalez
[2018-03-16 16:06] VITALS: BP 133/55
--- NOTE | 2018-03-16 16:48 | NUR ---
Paged Dr. Puga one more time for orders. Still waiting for call back.
--- NOTE | 2018-03-16 17:00 | NUR ---
Wound care done as ordered. Patient refused dressing to be placed over right knee.
--- NOTE | 2018-03-16 18:00 | NUR ---
Call back from Dr. Puga, according to for possible application of cast tomorrow. said, He will visit patient tomorrow.
[2018-03-16] MEDS: RIVAROXABAN 15 MG TABLET PO SCH (18:01)
[2018-03-16] MEDS: SIMVASTATIN 20 MG TABLET PO SCH (21:00)
[2018-03-16] MEDS: TAMSULOSIN HCL 0.4 MG CAP.SR.24H PO SCH (21:00)
[2018-03-16 21:55] VITALS: BP 138/62
--- NOTE | 2018-03-16 22:03 | NUR ---
Received pt resting in bed and watching TV. AAO x4. No acute distress noted. No c/o pain or discomfort at this time. Pt refused colace, he stated that he already had BM today and that he normally goes everyday. Risks and benefits explained, still refused. Accucheck 193, insulin coverage given. Safety measures maintained. Call light and personal belongings within reach. Will continue to monitor.
[2018-03-17] MEDS: LEVOTHYROXINE SODIUM 175 MCG TABLET PO SCH (06:31)
[2018-03-17] MEDS: OXYCODONE/APAP 5-325 MG TABLET PO PRN ×2 (06:32→20:20)
[2018-03-17] MEDS: BLOOD SUGAR DIAGNOSTIC 1 EACH STRIP VI SCH ×4 (06:33→20:31)
[2018-03-17 06:44] VITALS: BP 155/67
[2018-03-17 07:04] LABS: BASOPHILS # (AUTO) 0.1 K/uL (0.0-8.0); BASOPHILS % (AUTO) 0.9 % (0.0-2.0); EOSINOPHILS # (AUTO) 0.1 K/uL (0.0-0.7); EOSINOPHILS % (AUTO) 1.7 % (0.0-7.0); HEMATOCRIT 38.3 % (36.7-47.1); HEMOGLOBIN 12.6 g/dL (12.5-16.3); LYMPHOCYTES # (AUTO) 0.8 K/uL (20.0-40.0); LYMPHOCYTES % (AUTO) 11.6 % (20.5-51.5); MEAN CORPUSCULAR HEMOGLOBIN 30.5 uug (23.8-33.4); MEAN CORPUSCULAR HGB CONC 33 g/dL (32.5-36.3); MEAN CORPUSCULAR VOLUME 92.7 fL (73.0-96.2); MONOCYTES # (AUTO) 0.5 K/uL (2.0-10.0); MONOCYTES % (AUTO) 7.1 % (0.0-11.0); NEUTROPHILS # (AUTO) 5.7 K/uL (1.8-8.9); NEUTROPHILS % (AUTO) 78.7 % (38.5-71.5); PLATELET COUNT (AUTO) 249 K/uL (152-348); RED BLOOD CELL COUNT(AUTO) 4.14 MIL/uL (4.06-5.63); WHITE BLOOD COUNT (AUTO) 7.3 K/uL (3.6-10.2)
[2018-03-17 07:30] LABS: IRON, SERUM 62 ug/dL (50-175)
[2018-03-17 07:58] LABS: ALANINE AMINOTRANSFERASE 17 U/L (16-63); ALKALINE PHOSPHATASE 115 U/L (50-136); ASPARTATE AMINOTRANSFERASE 17 U/L (15-37); BILIRUBIN,TOTAL 0.4 mg/dL (0.2-1.0); CARBON DIOXIDE 23 mmol/L (21-32); CHLORIDE 110 mmol/L (98-107); CHOLESTEROL 118 mg/dL (<200); CREATININE 1.6 mg/dL (0.6-1.3); GLUCOSE 132 mg/dL (74-106); HDL CHOLESTEROL 46 mg/dL (40-60); MAGNESIUM 1.8 mg/dL (1.8-2.4); PHOSPHOROUS 3.2 mg/dL (2.5-4.9); POTASSIUM 5.2 mmol/L (3.5-5.1); TOTAL PROTEIN, SERUM 6.7 g/dL (6.4-8.2); TRIGLYCERIDES 108 MG/DL (30-150); UREA NITROGEN, BLOOD 43 mg/dL (7-18)
[2018-03-17] MEDS: DUTASTERIDE 0.5 MG CAPSULE PO SCH (08:38)
[2018-03-17] MEDS: ASPIRIN 81 MG TAB.CHEW PO SCH (08:39)
[2018-03-17] MEDS: FOLIC ACID/VITAMIN B COMP W-C TABLET PO SCH (08:39)
[2018-03-17] MEDS: PREGABALIN 25 MG CAPSULE PO SCH ×3 (08:39→16:28)
[2018-03-17] MEDS: AMIODARONE HCL 200 MG TABLET PO SCH (08:39)
[2018-03-17] MEDS: AMLODIPINE 2.5 MG TABLET PO SCH ×2 (08:40→20:19)
[2018-03-17] MEDS: ULORIC 40 MG PO SCH (08:43)
[2018-03-17] MEDS: DOCUSATE SODIUM 250 MG CAPSULE PO SCH ×2 (09:00→20:30)
[2018-03-17] MEDS: INSULIN REGULAR, HUMAN 300 UNIT/3 ML VIAL SQ PRN ×2 (12:05→20:29)
--- NOTE | 2018-03-17 15:23 | NUR ---
INTERDISCIPLINARY TEAM CONFERENCE
[2018-03-17] MEDS: RIVAROXABAN 15 MG TABLET PO SCH (17:41)
--- NOTE | 2018-03-17 19:28 | NUR ---
SBAR report received this morning. Pt has remained in stable condition, assessed no acute distress throughout this shift. Pt requests pain medication be held until later this evening before bed. Pt room changed to 106. Pt compliant with all routine medication administration, refusing colace only, and actively participates with therapies as able with NWB LE status. Bed in locked and lowest position, with side rails up x2. All comfort and safety needs met. Wound care provided to right LE. Call light placed within reach. Will continue to monitor and endorse to on coming shiftman.
[2018-03-17] MEDS: SIMVASTATIN 20 MG TABLET PO SCH (20:19)
[2018-03-17] MEDS: TAMSULOSIN HCL 0.4 MG CAP.SR.24H PO SCH (20:19)
[2018-03-17 20:36] VITALS: BP 141/46
--- NOTE | 2018-03-17 20:43 | NUR ---
Received pt resting in bed and watching TV. AAO x4. No acute distress noted. Complaint of pain on the left leg 02/17, pain med given. Refused colace, risks and benefits explained and pt still refused. Accucheck 186, insulin coverage given. Pt was expecting Dr. Puga today regarding his fracture and cast, MD didn't come in. Paged Dr. Puga at 2042, waiting for call back. Safety measures maintained. Call light and personal belongings within reach. Will continue to monitor.
[2018-03-18] MEDS: OXYCODONE/APAP 5-325 MG TABLET PO PRN ×2 (06:49→20:23)
[2018-03-18] MEDS: LEVOTHYROXINE SODIUM 175 MCG TABLET PO SCH (06:49)
[2018-03-18] MEDS: BLOOD SUGAR DIAGNOSTIC 1 EACH STRIP VI SCH ×4 (06:56→20:29)
[2018-03-18 07:02] VITALS: BP 119/59
[2018-03-18] MEDS: PREGABALIN 25 MG CAPSULE PO SCH ×3 (09:48→17:26)
[2018-03-18] MEDS: ASPIRIN 81 MG TAB.CHEW PO SCH (09:49)
[2018-03-18] MEDS: DOCUSATE SODIUM 250 MG CAPSULE PO SCH ×2 (09:49→20:22)
[2018-03-18] MEDS: AMLODIPINE 2.5 MG TABLET PO SCH ×2 (09:50→20:22)
[2018-03-18] MEDS: ULORIC 40 MG PO SCH (09:50)
[2018-03-18] MEDS: FOLIC ACID/VITAMIN B COMP W-C TABLET PO SCH (09:51)
[2018-03-18] MEDS: DUTASTERIDE 0.5 MG CAPSULE PO SCH (09:51)
[2018-03-18] MEDS: AMIODARONE HCL 200 MG TABLET PO SCH (09:51)
[2018-03-18] MEDS: INSULIN REGULAR, HUMAN 300 UNIT/3 ML VIAL SQ PRN ×3 (09:58→20:35)
[2018-03-18] MEDS: RIVAROXABAN 15 MG TABLET PO SCH (17:30)
[2018-03-18 18:17] LABS: *OCCULT BLOOD STOOL NEGATIVE (NEGATIVE)
--- NOTE | 2018-03-18 19:56 | NUR ---
Pt awake and laying in Semi Fowlers position in bed watching tv . Pt states he has a c/o pain in left middle toe , but would like to wait for pain medication at 22 00 . Pt is A& O x 4 , VSS . Pt has no other signs of distress . All safety precautions followed in room check .
[2018-03-18 20:12] VITALS: BP 127/74
[2018-03-18] MEDS: TAMSULOSIN HCL 0.4 MG CAP.SR.24H PO SCH (20:22)
[2018-03-18] MEDS: SIMVASTATIN 20 MG TABLET PO SCH (20:22)
[2018-03-19] MEDS: LEVOTHYROXINE SODIUM 175 MCG TABLET PO SCH (06:35)
[2018-03-19] MEDS: BLOOD SUGAR DIAGNOSTIC 1 EACH STRIP VI SCH ×4 (06:40→21:25)
[2018-03-19 06:48] VITALS: BP 143/53
--- NOTE | 2018-03-19 06:57 | NUR ---
Pt slept throughout the shift . No signs of distress and no c/o pain . A & O x 4 , VSS . Pt had a blood sugar of 136 . All safety precautions observed in the room.
--- NOTE | 2018-03-19 08:02 | NUR ---
Patient noted resting in bed with eyes closed, no facial cues of pain at this time, no signs of distress noted, call light in reach, bed locked and in lowest position,500 ml of urine emptied from urinal at this time, all needs met at this time
[2018-03-19] MEDS: DOCUSATE SODIUM 250 MG CAPSULE PO SCH ×2 (08:14→21:00)
[2018-03-19] MEDS: ASPIRIN 81 MG TAB.CHEW PO SCH (08:14)
[2018-03-19] MEDS: ULORIC 40 MG PO SCH (08:14)
[2018-03-19] MEDS: FOLIC ACID/VITAMIN B COMP W-C TABLET PO SCH (08:14)
[2018-03-19] MEDS: PREGABALIN 25 MG CAPSULE PO SCH ×3 (08:14→17:05)
[2018-03-19] MEDS: DUTASTERIDE 0.5 MG CAPSULE PO SCH (08:14)
[2018-03-19] MEDS: AMLODIPINE 2.5 MG TABLET PO SCH ×2 (08:15→21:25)
[2018-03-19] MEDS: AMIODARONE HCL 200 MG TABLET PO SCH (08:15)
[2018-03-19] MEDS: INSULIN REGULAR, HUMAN 300 UNIT/3 ML VIAL SQ PRN ×4 (08:18→21:29)
[2018-03-19 09:00] VITALS: BP 130/48
--- NOTE | 2018-03-19 11:23 | NUR ---
DOCTOR OWUSU CALLED BY THIS NURSE REGARDING PLAN FOR PATIENT CASTING OF LEFT LOWER EXTREMITY AND SCHEDULED DISCHARGE 03/20/18, AWAITING RETURNED CALL, MESSAGE LEFT RELAYING THIS INFORMATION. Addendum: 03/19/18 at 1128 by NITA CARRENO RN RN MD OWUSU NUMBER CALLED [phone]
[2018-03-19] MEDS: RIVAROXABAN 15 MG TABLET PO SCH (17:04)
--- NOTE | 2018-03-19 19:00 | NUR ---
Seen and examined by Dr. Puga today. Informed AM nurse that patient does not need cast on leg for its (-) for fracture.
--- NOTE | 2018-03-19 19:10 | NUR ---
Sleeping during initial rounds. No s/s of respiratory distress. Safety measures and fall precaution maintained. Continue care as planned.
[2018-03-19 20:00] VITALS: BP 154/61
[2018-03-19] MEDS: SIMVASTATIN 20 MG TABLET PO SCH (21:24)
[2018-03-19] MEDS: TAMSULOSIN HCL 0.4 MG CAP.SR.24H PO SCH (21:25)
[2018-03-19] MEDS: OXYCODONE/APAP 5-325 MG TABLET PO PRN (22:13)
[2018-03-20 05:46] VITALS: BP 152/62
[2018-03-20] MEDS: LEVOTHYROXINE SODIUM 175 MCG TABLET PO SCH (06:10)
[2018-03-20] MEDS: BLOOD SUGAR DIAGNOSTIC 1 EACH STRIP VI SCH ×2 (06:11→11:30)
--- NOTE | 2018-03-20 06:26 | NUR ---
Shift End Report: Slept well. Medicated once for pain with relief. No further complaint presented. No fall/injury.All needs attended and met. No significant event reported all night. Continue current plan of care.
--- NOTE | 2018-03-20 07:10 | NUR ---
Nurse Notes: received patient awake, alert and oriented lying on bed on a semi oliva's position. No SOB or distress. Denies any pain at this time. Safety precautions observed. Informed patient regarding hourly rounding, discussed to patient on how to use telephone and call light. Will continue to monitor.
[2018-03-20 08:00] VITALS: BP 136/64
[2018-03-20] MEDS: FOLIC ACID/VITAMIN B COMP W-C TABLET PO SCH (08:27)
[2018-03-20] MEDS: DOCUSATE SODIUM 250 MG CAPSULE PO SCH (08:27)
[2018-03-20 08:28] VITALS: BP 136/64
[2018-03-20] MEDS: ASPIRIN 81 MG TAB.CHEW PO SCH (08:28)
[2018-03-20] MEDS: AMIODARONE HCL 200 MG TABLET PO SCH (08:28)
[2018-03-20] MEDS: ULORIC 40 MG PO SCH (08:28)
[2018-03-20] MEDS: AMLODIPINE 2.5 MG TABLET PO SCH (08:28)
[2018-03-20] MEDS: PREGABALIN 25 MG CAPSULE PO SCH (08:28)
[2018-03-20] MEDS: DUTASTERIDE 0.5 MG CAPSULE PO SCH (08:28)
--- NOTE | 2018-03-20 11:45 | NUR ---
NURSE NOTES: PATIENT REMAINED STABLE, NO SOB OR DISTRESS. DENIES ANY PAIN OR DISCOMFORTS. WOUND CARE TREATMENT DONE ON PATIENT'S RIGHT SECOND TOE ORDERED BUT PATIENT REFUSED TO HAVE TREATMENT ON HIS RIGHT AND LEFT BELOW THE KNEE WOUND PATIENT STATED "NO NEED IT IS ALREADY DRY" EXPLAINED THE IMPORTANCE OF THE TREATMENT BUT STILL PATIENT REFUSED. PHOTOS TAKEN, FILED IN THE CHART. PATIENT WAS DISCHARGED HOME WITH VIA PRIVATE TRANSPORTATION. HEALTH TEACHINGS WERE GIVEN TO BOTH PATIENT AND . INFORMED THAT OF NOW PATIENT IS STILL NON WEIGHT BEARING ON LEFT LOWER EXTREMITY UNTIL FURTHER ORDER AND THAT DR. OWUSU WAS CALLED THIS MORNING TO FOLLOW UP BUT PER MD'S OFFICE DR. OWUSU IS STILL IN THE OR DOING SURGERY AND MD'S OFFICE WILL CALL BACK SOON MD IS DONE. HEALTH TEACHINGS GIVEN USING TEACH BACK METHOD, PATIENT VERBALIZED UNDERSTANDING. INFORMED OF THE FOLLOW UP APPOINTMENTS. ALL BELONGINGS COMPLETE. NO MISSING ITEMS NOTED. PATIENT AND WERE ACCOMPANIED TO THE CAR. PATIENT AND WERE APPRECIATIVE OF THE CARE THAT THE PATIENT RECEIVED.
--- NOTE | 2018-03-20 12:01 | NUR ---
RECEIVED CALL FROM DR. OWUSU'S OFFICE PER MD PATIENT CAN HAVE WEIGHT BEARING TOLERATED ON HIS LEFT LOWER EXTREMITY. CALLED NEYDA (PATIENT'S ) AND INFORMED.
== END 2018-03-20 11:45 | disposition home health service (06) | DRG 291 ==
PROVIDERS: ADMIT Physical Medicine & Rehabilitation Pain Medicine; ATTEND Physical Medicine & Rehabilitation Pain Medicine
DX: I13.0 Hypertensive heart and chronic kidney disease with heart failure and stage 1 through stage 4 chronic kidney disease, or unspecified chronic kidney disease (principal); I50.33 Acute on chronic diastolic (congestive) heart failure; N17.0 Acute kidney failure with tubular necrosis; D68.59 Other primary thrombophilia; I82.512 Chronic embolism and thrombosis of left femoral vein; D64.9 Anemia, unspecified; E11.621 Type 2 diabetes mellitus with foot ulcer; L97.509 Non-pressure chronic ulcer of other part of unspecified foot with unspecified severity; J44.9 Chronic obstructive pulmonary disease, unspecified; E78.00 Pure hypercholesterolemia, unspecified; E78.5 Hyperlipidemia, unspecified; I25.10 Atherosclerotic heart disease of native coronary artery without angina pectoris; R27.0 Ataxia, unspecified; M95.5 Acquired deformity of pelvis; M54.16 Radiculopathy, lumbar region; Z86.73 Personal history of transient ischemic attack (TIA), and cerebral infarction without residual deficits; E03.9 Hypothyroidism, unspecified; M62.50 Muscle wasting and atrophy, not elsewhere classified, unspecified site; S82.832D Other fracture of upper and lower end of left fibula, subsequent encounter for closed fracture with routine healing; S90.31XD Contusion of right foot, subsequent encounter; S91.114D Laceration without foreign body of right lesser toe(s) without damage to nail, subsequent encounter; W18.30XD Fall on same level, unspecified, subsequent encounter; E11.22 Type 2 diabetes mellitus with diabetic chronic kidney disease; E11.42 Type 2 diabetes mellitus with diabetic polyneuropathy; E11.65 Type 2 diabetes mellitus with hyperglycemia; E66.9 Obesity, unspecified; Z68.33 Body mass index [BMI] 33.0-33.9, adult; N18.9 Chronic kidney disease, unspecified; I25.2 Old myocardial infarction; Z95.1 Presence of aortocoronary bypass graft; I49.5 Sick sinus syndrome; I87.2 Venous insufficiency (chronic) (peripheral); K21.9 Gastro-esophageal reflux disease without esophagitis; L97.519 Non-pressure chronic ulcer of other part of right foot with unspecified severity; M85.80 Other specified disorders of bone density and structure, unspecified site; N40.0 Benign prostatic hyperplasia without lower urinary tract symptoms; Z85.118 Personal history of other malignant neoplasm of bronchus and lung; Z90.2 Acquired absence of lung [part of]; Z87.891 Personal history of nicotine dependence; Z95.5 Presence of coronary angioplasty implant and graft
CPT/HCPCS: 36415; 73610; 73660; 73700; 82306; 82652; 83550; 83735; 83970; 84100; 84132; 84443; 85025; 92523; 92526; 92610; 97110; 97112; 97116; 97530; 97535; A9150; J1815

== ENCOUNTER 2021-12-20 22:36 | Inpatient (IN) | payer MEDICARE, OTHER ==
[~2021-12-20] VITALS: Ht 177.8 cm; Wt 90.7 kg
[~2021-12-20 22:36] MED LIST changes: +ACET-73 PO; +AMIO200T5 PO; +AMLO-212 PO; +AMLO2.5T4 PO; -AMLO5TAB7 PO; +CLON0.3P TD; +DOCU100C36 PO; +FEBU40TA PO; +FOLI0.8T3 PO; +FOLI1CAP7 PO; +INSU100I14 SUBCUT; -INSU100V7 SQ; +LEVO150T8 PO; +LEVO175T7 PO; +PREG75CA PO; +RIVA10TA PO; +SIMV-46 PO; -SIMV20TA6 PO; +TAMS0.4C34 PO; +UMEC1BLS IH
--- NOTE | 2021-12-20 22:39 | NUR ---
Dr. Cummings at bedside for MSE.
[2021-12-20 23:26] LABS: HEMATOCRIT 37.6 % (36.7-47.1); MEAN CORPUSCULAR HEMOGLOBIN 29.8 uug (23.8-33.4); MEAN CORPUSCULAR VOLUME 90.9 fL (73.0-96.2); PLATELET COUNT (AUTO) 204 K/uL (152-348)
--- NOTE | 2021-12-20 23:27 | NUR ---
Xray at bedside.
[2021-12-20 23:29] LABS: CARBON DIOXIDE 28 mmol/L (21-32); CHLORIDE 102 mmol/L (98-107); CREATININE 2.6 mg/dL (0.6-1.3); GLUCOSE 193 mg/dL (74-106); POTASSIUM 4.2 mmol/L (3.5-5.1); UREA NITROGEN, BLOOD 74 mg/dL (7-18)
[2021-12-20 23:45] LABS: ALANINE AMINOTRANSFERASE 27 U/L (16-63); ALKALINE PHOSPHATASE 73 U/L (50-136); ASPARTATE AMINOTRANSFERASE 20 U/L (15-37); BILIRUBIN,DIRECT 0.1 mg/dL (0.0-0.2); BILIRUBIN,TOTAL 0.3 mg/dL (0.2-1.0); TOTAL PROTEIN, SERUM 7.3 g/dL (6.4-8.2)
[2021-12-21] MEDS ORDERED: INSU100V7 SQ (00:25)
[2021-12-21] MEDS ORDERED: INSU100V11 SUBCUT (00:25)
[2021-12-21] MEDS ORDERED: CARV25TA2 PO (00:25)
[2021-12-21] MEDS ORDERED: LEVO25TA9 PO (00:25)
[2021-12-21] MEDS ORDERED: AMIO200T5 PO (00:25)
[2021-12-21] MEDS ORDERED: ALLO100T PO (00:25)
[2021-12-21] MEDS ORDERED: FERR325T28 PO (00:25)
[2021-12-21] MEDS ORDERED: APIX2.5T PO (00:25)
[2021-12-21] MEDS ORDERED: CLON0.1T PO (00:25)
[2021-12-21] MEDS ORDERED: FOLI0.8T41 PO (00:25)
[2021-12-21] MEDS ORDERED: FLUT1BLS6 IH (00:25)
[2021-12-21] MEDS ORDERED: DULA0.75 SQ (00:25)
[2021-12-21] MEDS ORDERED: FURO20TA4 PO (00:25)
[2021-12-21] MEDS ORDERED: NIFE90TA2 PO (00:25)
[2021-12-21] MEDS ORDERED: PREG50CA PO (00:25)
--- NOTE | 2021-12-21 00:25 | NUR ---
Patient and Patient's unable to recall all home medication name and dosages at this time. Patient's will bring bottles with medication name and dosages tomorrow in the morning.
--- NOTE | 2021-12-21 00:35 | NUR ---
Pt out of ER for CT.
--- NOTE | 2021-12-21 00:45 | NUR ---
Nuvia urena in ED - 12/21/21 at 0050 by CARISSA Pt out of ER for CT.
--- NOTE | 2021-12-21 00:50 | NUR ---
Pt back to ER from CT.
--- NOTE | 2021-12-21 00:59 | NUR ---
Pt states unable to give urine at this time.
--- NOTE | 2021-12-21 01:27 | NUR ---
Pt provided urine sample, sent to lab.
[2021-12-21 01:37] LABS: *BILIRUBIN,URIN NEGATIVE (NEGATIVE); *BLOOD, URINE 2+ (NEGATIVE); *CLARITY,URINE CLEAR (CLEAR); *COLOR,URINE YELLOW (YELLOW); *KETONES,URINE NEGATIVE (NEGATIVE); *UROBILINOGEN,URINE 0.2 E.U./dl (NORMAL); LEUKOCYTE ESTERASE ,URINE 1+ (NEGATIVE); NITRITE, URINE POSITIVE (NEGATIVE); UGLUCOSE NEGATIVE (NEGATIVE)
[2021-12-21] MEDS ORDERED: CEFTRIAXONE 1 G in IV DEXTROSE 5% 50 ML IV ONE (02:15)
[2021-12-21] MEDS ORDERED: CEFTRIAXONE /D5W 50ML IVPB **ER PYXIS IV ONE (02:20)
--- NOTE | 2021-12-21 02:42 | NUR ---
Called [facility] to page Narinder BOWERS.
--- NOTE | 2021-12-21 02:45 | NUR ---
Dr. Cummings on panel call with Narinder BOWERS. Patient accepted for admission to [facility], diagnosis: pyelonephritis.
[2021-12-21] MEDS ORDERED: MORPHINE SULFATE 2 MG/1 ML DISP.SYRIN IV PRN (03:00)
[2021-12-21] MEDS ORDERED: ONDANSETRON 4 MG/2 ML VIAL IV PRN (03:00)
[2021-12-21] MEDS ORDERED: hydrALAZINE HCL 20 MG/1 ML VIAL IV PRN (03:00)
[2021-12-21] MEDS ORDERED: ACETAMINOPHEN 325 MG TABLET PO PRN (03:00)
[2021-12-21 03:26] LABS: BACTERIA,URINE MODERATE /HPF (NONE SEEN); SQUAMOUS EPITHELIAL CELL,UR NONE SEEN /HPF (NONE SEEN)
--- NOTE | 2021-12-21 03:52 | NUR ---
Report given to Bev FIGUEROA Tele.
--- NOTE | 2021-12-21 05:00 | NUR ---
Admitted patient to tele in [facility] from ER department with VSS. Alert and oriented x3. On 2L NC. Respirations unlabored. Hard of hearing. Able to use urinal. X1 void. Primary diagbosis pyelonephritis and UTI. Unable to ambulate due to weakness in legs. Right lower leg wound present. Oriented to staff and call button.
[2021-12-21 05:21] VITALS: BP 129/53
[2021-12-21] MEDS: LEVOTHYROXINE SODIUM 150 MCG TABLET PO SCH (06:33)
[2021-12-21] MEDS ORDERED: LEVOTHYROXINE SODIUM 25 MCG TABLET PO SCH (07:00)
--- NOTE | 2021-12-21 07:30 | NUR ---
RECEIVED PATIENT IN BED AWAKE ALERT AND VERBALISED NEEDS DENIES PAIN OR DISCOMFORTS AT THIS TIME REMAIN ON ATB ORDERED WITH NO ADVERSE OR ALLERGIC REACTIONS AT THIS TIME CALL LIGHTS AND PERSONAL BELONGINGS ARE WITHIN EASY REACH WILL CONTINUE TO OBSERVE.
[2021-12-21] MEDS: DUTASTERIDE 0.5 MG CAPSULE PO SCH (09:03)
[2021-12-21] MEDS: DOCUSATE SODIUM 250 MG CAPSULE PO SCH ×2 (09:03→16:57)
[2021-12-21] MEDS: ALLOPURINOL 100 MG TABLET PO SCH (09:04)
[2021-12-21] MEDS: CLOPIDOGREL 75 MG TABLET PO SCH (09:04)
[2021-12-21] MEDS: NIFEdipine XL 90 MG TABSR PO SCH (09:05)
[2021-12-21] MEDS: AMIODARONE HCL 200 MG TABLET PO SCH (09:05)
[2021-12-21] MEDS: CARVEDILOL 25 MG TABLET PO SCH ×2 (09:05→16:57)
[2021-12-21] MEDS: ENOXAPARIN SODIUM 100 MG/ML DISP.SYRIN SQ SCH (09:17)
[2021-12-21 11:29] VITALS: BP 116/44
[2021-12-21 16:00] VITALS: BP 114/48
--- NOTE | 2021-12-21 16:45 | NUR ---
PATIENT SEEN BY DR LETICIA MURPHY WITH ORDER TO CHANGE HIS DIET AT THIS TIME PATIENT DENIES DISCOMFORTS NO C/O AT THIS TIME WILL CONTINUE TO OBSERVE.
--- NOTE | 2021-12-21 18:00 | NUR ---
PHYSICAL THERAPY EVAL ORDERED PATIENT STATED THAT HE IS WEAK AND USES A WALKER AT [facility].
--- NOTE | 2021-12-21 19:30 | NUR ---
Received patient lying in bed. AAOx3-4. In no acute distress. Denies any pain or SOB. On O2 at 2LPM via NC. O2 sat at 97%. IV site on right FA intact and patent. 100% Pacing on tele. Needs assessed and attended to. Safety measure initiated and call light within reached.
[2021-12-21 20:09] VITALS: BP 115/45
[2021-12-21] MEDS ORDERED: CEFTRIAXONE 2 G in IV DEXTROSE 5% 100 ML IV SCH (21:00)
[2021-12-22 00:06] VITALS: BP 114/46
[2021-12-22] MEDS: CEFTRIAXONE 2 G in IV DEXTROSE 5% 100 ML IV SCH (01:04)
[2021-12-22 04:09] VITALS: BP 132/50
--- NOTE | 2021-12-22 05:27 | NUR ---
Patient slept well during the night. Denies any pain or SOB. AC Pacing on tele with HR of 62/min. No adverse reaction noted from IV antibiotic. Needs attended to and met. Safety measure maintained and call light within reached.
[2021-12-22] MEDS: LEVOTHYROXINE SODIUM 150 MCG TABLET PO SCH (06:00)
[2021-12-22 06:12] LABS: HEMATOCRIT 33.8 % (36.7-47.1); MEAN CORPUSCULAR HEMOGLOBIN 29.7 uug (23.8-33.4); MEAN CORPUSCULAR VOLUME 90.8 fL (73.0-96.2); PLATELET COUNT (AUTO) 156 K/uL (152-348)
[2021-12-22 06:44] LABS: ALANINE AMINOTRANSFERASE 17 U/L (16-63); ALKALINE PHOSPHATASE 64 U/L (50-136); ASPARTATE AMINOTRANSFERASE 11 U/L (15-37); BILIRUBIN,TOTAL 0.2 mg/dL (0.2-1.0); CARBON DIOXIDE 31 mmol/L (21-32); CHLORIDE 101 mmol/L (98-107); CREATININE 3.3 mg/dL (0.6-1.3); GLUCOSE 206 mg/dL (74-106); PHOSPHOROUS 3.9 mg/dL (2.5-4.9); POTASSIUM 4.5 mmol/L (3.5-5.1); TOTAL PROTEIN, SERUM 6.8 g/dL (6.4-8.2)
[2021-12-22 07:04] LABS: UREA NITROGEN, BLOOD 87 mg/dL (7-18)
--- NOTE | 2021-12-22 07:20 | NUR ---
RECEIVED PATIENT IN BED ASLEEP EASILY AROUSABLE ON ROUNDS ALERT AND VERBALLY RESPONDS WHEN AWAKE.REMAIN ON O2 AT 2L/M BY NASAL CANULA WITH NO SOB AT THIS TIME.REMAIN ON ATB ORDERED WITH NO S/S OF ADVERSE OR ALLERGIC REACTIONS AT THIS TIME CALL LIGHTS AND PERSONAL BELONGINGS ARE WITHIN EASY REACH MADE COMFORTABLE WILL CONTINUE TO OBSERVE.
[2021-12-22] MEDS: ALLOPURINOL 100 MG TABLET PO SCH (08:18)
[2021-12-22] MEDS: DUTASTERIDE 0.5 MG CAPSULE PO SCH (08:18)
[2021-12-22] MEDS: DOCUSATE SODIUM 250 MG CAPSULE PO SCH ×2 (08:18→16:55)
[2021-12-22] MEDS: CARVEDILOL 25 MG TABLET PO SCH ×2 (08:19→16:55)
[2021-12-22] MEDS: NIFEdipine XL 90 MG TABSR PO SCH (08:19)
[2021-12-22] MEDS: CLOPIDOGREL 75 MG TABLET PO SCH (08:19)
[2021-12-22] MEDS: AMIODARONE HCL 200 MG TABLET PO SCH (08:19)
[2021-12-22] MEDS: ENOXAPARIN SODIUM 100 MG/ML DISP.SYRIN SQ SCH (08:23)
[2021-12-22 11:31] VITALS: BP 130/50
[2021-12-22 15:56] VITALS: BP 116/47
--- NOTE | 2021-12-22 17:00 | NUR ---
2 D ECHO COMPLETED ORDERED 55 PERCENT EF.RESTING IN BED DENIES DISCOMFORTS NOT IN DISTRESS AT THIS TIME.
--- NOTE | 2021-12-22 19:30 | NUR ---
Received patient lying in bed. AAOx3-4. In no acute distress. Denies any pain or SOB when asked. O2 at 2LPM via NC. O2 sat at 98%. IV site on right FA intact and patent. 100% AV Pacing on tele with HR of 60/min. Safety measure initiated and call light within reached.
[2021-12-22 20:43] VITALS: BP 110/49
[2021-12-23 00:21] VITALS: BP 120/52
[2021-12-23] MEDS: CEFTRIAXONE 2 G in IV DEXTROSE 5% 100 ML IV SCH (01:05)
[2021-12-23 04:34] VITALS: BP 129/51
--- NOTE | 2021-12-23 05:58 | NUR ---
Patient slept well during the night. Denies any pain or SOB. O2 sat at93% on RA. AV Pacing on tele with HR of 64/min. No adverse effect noted from IV antibiotic. Needs attended to and met. Safety measure maintained and call light within reached.
[2021-12-23] MEDS: LEVOTHYROXINE SODIUM 150 MCG TABLET PO SCH (06:22)
[2021-12-23 06:27] LABS: HEMATOCRIT 32.2 % (36.7-47.1); MEAN CORPUSCULAR HEMOGLOBIN 29.8 uug (23.8-33.4); MEAN CORPUSCULAR VOLUME 90.6 fL (73.0-96.2); PLATELET COUNT (AUTO) 140 K/uL (152-348)
[2021-12-23 06:53] LABS: CARBON DIOXIDE 31 mmol/L (21-32); CHLORIDE 101 mmol/L (98-107); CREATININE 3.2 mg/dL (0.6-1.3); GLUCOSE 197 mg/dL (74-106); MAGNESIUM 2.3 mg/dL (1.8-2.4); PHOSPHOROUS 3.7 mg/dL (2.5-4.9)
[2021-12-23 08:11] LABS: UREA NITROGEN, BLOOD 94 mg/dL (7-18)
--- NOTE | 2021-12-23 08:30 | NUR ---
Patient AAOx4, able to make needs known. Denies any generalized pain or discomfort. No SOB or chest pain. Patient uses urinal for voiding, urine is clear and yellow, denies any burning at urination. No ABD pain. All needs attended, call light within reach.
[2021-12-23] MEDS: CLOPIDOGREL 75 MG TABLET PO SCH (08:38)
[2021-12-23] MEDS: DOCUSATE SODIUM 250 MG CAPSULE PO SCH ×2 (08:38→17:28)
[2021-12-23] MEDS: DUTASTERIDE 0.5 MG CAPSULE PO SCH (08:38)
[2021-12-23] MEDS: ALLOPURINOL 100 MG TABLET PO SCH (08:38)
[2021-12-23] MEDS: AMIODARONE HCL 200 MG TABLET PO SCH (08:40)
[2021-12-23] MEDS: CARVEDILOL 25 MG TABLET PO SCH ×2 (08:41→17:28)
[2021-12-23] MEDS: NIFEdipine XL 90 MG TABSR PO SCH (08:41)
--- NOTE | 2021-12-23 11:00 | NUR ---
Dr. Rosales made aware of elevated BUN, no new orders.
[2021-12-23 11:30] VITALS: BP 127/55
[2021-12-23] MEDS ORDERED: DEXTROSE 50% 50 ML DISP.SYRIN IV PRN (11:45)
[2021-12-23] MEDS: PREGABALIN 50 MG CAPSULE PO SCH ×2 (14:31→18:25)
[2021-12-23 16:00] VITALS: BP 139/52
[2021-12-23] MEDS: BLOOD SUGAR DIAGNOSTIC 1 EACH STRIP VI SCH ×2 (17:28→20:32)
[2021-12-23] MEDS: FLUTICASONE/VILANTEROL 1 EACH BLST.W.DEV INH SCH (17:28)
[2021-12-23] MEDS: APIXABAN 2.5 MG TABLET PO SCH (17:29)
[2021-12-23] MEDS: INSULIN REGULAR, HUMAN 300 UNIT/3 ML VIAL SQ PRN ×2 (17:30→20:32)
--- NOTE | 2021-12-23 19:30 | NUR ---
Received patient lying in bed. AAOx3-4. In no acute distress. No complain of pain or SOB. IV site on right FA intact and patent. 100% AV Pacing on tele with HR of 60/min. Safety measure initiated and call light within reached.
--- NOTE | 2021-12-23 20:04 | NUR ---
Dr. Rosales into visit.
[2021-12-23 20:33] VITALS: BP 117/51
[2021-12-23] MEDS: INSULIN GLARGINE,HUM 300 UNITS/3 ML CARTRIDGE SQ SCH (20:33)
[2021-12-24 04:04] VITALS: BP 131/49
--- NOTE | 2021-12-24 05:18 | NUR ---
Patient slept well during the night. Denies any pain or SOB. O2 at 2LPM via NC in place. O2 sat at 97%. No adverse effect noted from IV antibiotic. Needs attended to and met. Safety measure maintained and call light within reached.
[2021-12-24] MEDS: LEVOTHYROXINE SODIUM 150 MCG TABLET PO SCH (06:09)
[2021-12-24] MEDS: BLOOD SUGAR DIAGNOSTIC 1 EACH STRIP VI SCH ×4 (06:35→20:48)
[2021-12-24 07:50] LABS: HEMATOCRIT 32.2 % (36.7-47.1); MEAN CORPUSCULAR VOLUME 90.5 fL (73.0-96.2); PLATELET COUNT (AUTO) 143 K/uL (152-348)
[2021-12-24 08:00] LABS: ALANINE AMINOTRANSFERASE 13 U/L (16-63); ALKALINE PHOSPHATASE 55 U/L (50-136); ASPARTATE AMINOTRANSFERASE 11 U/L (15-37); BILIRUBIN,TOTAL 0.2 mg/dL (0.2-1.0); CARBON DIOXIDE 30 mmol/L (21-32); CHLORIDE 103 mmol/L (98-107); CREATININE 2.7 mg/dL (0.6-1.3); GLUCOSE 193 mg/dL (74-106); MAGNESIUM 2.4 mg/dL (1.8-2.4); PHOSPHOROUS 3.1 mg/dL (2.5-4.9); POTASSIUM 4.1 mmol/L (3.5-5.1); TOTAL PROTEIN, SERUM 6.8 g/dL (6.4-8.2)
[2021-12-24] MEDS: CLOPIDOGREL 75 MG TABLET PO SCH (08:49)
[2021-12-24] MEDS: DUTASTERIDE 0.5 MG CAPSULE PO SCH (08:49)
[2021-12-24] MEDS: PREGABALIN 50 MG CAPSULE PO SCH ×3 (08:49→16:19)
[2021-12-24] MEDS: ALLOPURINOL 100 MG TABLET PO SCH (08:49)
[2021-12-24] MEDS: DOCUSATE SODIUM 250 MG CAPSULE PO SCH ×2 (08:49→16:19)
[2021-12-24] MEDS: AMIODARONE HCL 200 MG TABLET PO SCH (08:53)
[2021-12-24] MEDS: FERROUS SULFATE 325 MG TABEC PO SCH (08:53)
[2021-12-24] MEDS: CARVEDILOL 25 MG TABLET PO SCH ×2 (08:54→16:20)
[2021-12-24] MEDS: APIXABAN 2.5 MG TABLET PO SCH ×2 (08:54→16:21)
[2021-12-24] MEDS: INSULIN REGULAR, HUMAN 300 UNIT/3 ML VIAL SQ PRN ×4 (09:00→20:48)
[2021-12-24] MEDS: NIFEdipine XL 90 MG TABSR PO SCH (09:01)
[2021-12-24 09:03] LABS: UREA NITROGEN, BLOOD 87 mg/dL (7-18)
[2021-12-24] MEDS: FLUTICASONE/VILANTEROL 1 EACH BLST.W.DEV INH SCH (09:05)
[2021-12-24 11:50] VITALS: BP 115/48
[2021-12-24 12:40] LABS: *OCCULT BLOOD STOOL NEGATIVE (NEGATIVE)
[2021-12-24 16:22] VITALS: BP 132/53
--- NOTE | 2021-12-24 19:47 | NUR ---
Received patient sitting on the side of the bed. AAOx3-4. Calm and pleasant. In no acute distress. No complain of pain or SOB. IV site on right FA intact and patent. Needs assessed and attended to. Safety measure initiated and call light within reached.
[2021-12-24 20:03] VITALS: BP 157/59
[2021-12-24] MEDS: INSULIN GLARGINE,HUM 300 UNITS/3 ML CARTRIDGE SQ SCH (20:49)
[2021-12-24 22:01] LABS: *BILIRUBIN,URIN NEGATIVE (NEGATIVE); *CLARITY,URINE CLEAR (CLEAR); *COLOR,URINE YELLOW (YELLOW); *KETONES,URINE NEGATIVE (NEGATIVE); *UROBILINOGEN,URINE 0.2 E.U./dl (NORMAL); LEUKOCYTE ESTERASE ,URINE NEGATIVE (NEGATIVE); NITRITE, URINE NEGATIVE (NEGATIVE); UGLUCOSE NEGATIVE (NEGATIVE)
[2021-12-24 22:19] LABS: *BLOOD, URINE TRACE (NEGATIVE)
[2021-12-24 22:22] LABS: *URINE TOTAL PROTEIN RANDOM 26.3 mg/dL (<150/24HR)
[2021-12-24 22:25] LABS: BACTERIA,URINE MODERATE /HPF (NONE SEEN); SQUAMOUS EPITHELIAL CELL,UR MODERATE /HPF (NONE SEEN)
[2021-12-25 04:06] VITALS: BP 145/50
--- NOTE | 2021-12-25 05:48 | NUR ---
Patient slept well. Denies any pain or SOB. O2 at 2LPM via NC in place. No adverse effect noted from IV antibiotic. Needs attended to and met. Safety measure maintained and call light within reached.
[2021-12-25] MEDS: LEVOTHYROXINE SODIUM 150 MCG TABLET PO SCH (06:06)
[2021-12-25] MEDS: BLOOD SUGAR DIAGNOSTIC 1 EACH STRIP VI SCH ×3 (06:36→16:34)
[2021-12-25 06:53] LABS: HEMATOCRIT 34.4 % (36.7-47.1); MEAN CORPUSCULAR HEMOGLOBIN 29.9 uug (23.8-33.4); MEAN CORPUSCULAR VOLUME 90.5 fL (73.0-96.2); PLATELET COUNT (AUTO) 169 K/uL (152-348)
[2021-12-25 07:12] LABS: CARBON DIOXIDE 30 mmol/L (21-32); CHLORIDE 104 mmol/L (98-107); CREATININE 2.4 mg/dL (0.6-1.3); GLUCOSE 142 mg/dL (74-106); MAGNESIUM 2.6 mg/dL (1.8-2.4); PHOSPHOROUS 3.2 mg/dL (2.5-4.9); POTASSIUM 4.2 mmol/L (3.5-5.1)
[2021-12-25 07:15] LABS: UREA NITROGEN, BLOOD 86 mg/dL (7-18)
[2021-12-25] MEDS: FERROUS SULFATE 325 MG TABEC PO SCH (09:26)
[2021-12-25] MEDS: FLUTICASONE/VILANTEROL 1 EACH BLST.W.DEV INH SCH (09:26)
[2021-12-25] MEDS: NIFEdipine XL 90 MG TABSR PO SCH (09:27)
[2021-12-25] MEDS: PREGABALIN 50 MG CAPSULE PO SCH ×3 (09:27→16:30)
[2021-12-25] MEDS: DUTASTERIDE 0.5 MG CAPSULE PO SCH (09:27)
[2021-12-25] MEDS: DOCUSATE SODIUM 250 MG CAPSULE PO SCH ×2 (09:27→16:30)
[2021-12-25] MEDS: CLOPIDOGREL 75 MG TABLET PO SCH (09:28)
[2021-12-25] MEDS: ALLOPURINOL 100 MG TABLET PO SCH (09:28)
[2021-12-25] MEDS: CARVEDILOL 25 MG TABLET PO SCH ×2 (09:28→16:30)
[2021-12-25] MEDS: AMIODARONE HCL 200 MG TABLET PO SCH (09:28)
[2021-12-25] MEDS: APIXABAN 2.5 MG TABLET PO SCH ×2 (09:29→16:31)
[2021-12-25] MEDS: INSULIN REGULAR, HUMAN 300 UNIT/3 ML VIAL SQ PRN ×3 (09:31→16:35)
[2021-12-25 12:04] VITALS: BP 126/52
[2021-12-25] MEDS ORDERED: CEPH250C PO ×2 (16:01→21:12)
[2021-12-25] MEDS ORDERED: FOLI0.8T2 PO (16:01)
[2021-12-25] MEDS ORDERED: FURO-152 PO (16:01)
[2021-12-25] MEDS ORDERED: CARV25TA2 PO ×2 (16:01→21:12)
[2021-12-25] MEDS ORDERED: FLUT1BLS INH (16:01)
[2021-12-25] MEDS ORDERED: INSU100V28 SQ (16:01)
[2021-12-25] MEDS ORDERED: DEXT50DI8 IV (16:01)
[2021-12-25] MEDS ORDERED: PREG50CA PO ×2 (16:01→21:12)
[2021-12-25] MEDS ORDERED: ACET325T53 PO (16:01)
[2021-12-25 16:08] VITALS: BP 135/54
[2021-12-25 16:30] VITALS: BP 139/59
--- NOTE | 2021-12-25 17:43 | NUR ---
Patient to be discharged and admitted into [facility].
--- NOTE | 2021-12-25 17:55 | NUR ---
Patient discharged from Med-Surg unit, and to be admitted into [facility]. Discharge education provided. Will endorse information to upcoming PM nurse for admission process.
[2021-12-25] MEDS ORDERED: levoFLOXacin 250 MG TABLET PO SCH (21:00)
[2021-12-25] MEDS ORDERED: FURO20TA4 PO (21:12)
[2021-12-25] MEDS ORDERED: FOLI0.8T2 GT (21:12)
[2021-12-25] MEDS ORDERED: ACET-2154 PO (21:12)
[2021-12-25] MEDS ORDERED: FLUT1BLS IH (21:12)
[2021-12-25] MEDS ORDERED: LEVO150T8 PO (21:12)
[2021-12-25] MEDS ORDERED: CLOP75TA15 PO (21:12)
[2021-12-25] MEDS ORDERED: AMIO200T5 PO (21:54)
[2021-12-25] MEDS ORDERED: NIFE90TA2 PO (21:54)
[2021-12-25] MEDS ORDERED: DOCU250C14 PO (21:54)
[2021-12-25] MEDS ORDERED: INSU100V7 SQ (21:54)
[2021-12-25] MEDS ORDERED: ALLO100T PO (21:54)
[2021-12-25] MEDS ORDERED: APIX2.5T PO (21:54)
[2021-12-25] MEDS ORDERED: DUTA0.5C PO (21:54)
[2021-12-25] MEDS ORDERED: CEphaleXIN 250 MG CAPSULE PO SCH (22:00)
[2021-12-26] MEDS ORDERED: AMIO200T6 PO (09:34)
== END 2021-12-25 18:20 | DRG 871 ==
LOC: ER 22:43 → TELE3 12-21 04:24 → MEDSURG3 12-23 22:14
PROVIDERS: ADMIT Nurse Practitioner Acute Care; ATTEND Internal Medicine
DX: A41.9 Sepsis, unspecified organism (principal); G93.41 Metabolic encephalopathy; N17.0 Acute kidney failure with tubular necrosis; N12 Tubulo-interstitial nephritis, not specified as acute or chronic; I13.0 Hypertensive heart and chronic kidney disease with heart failure and stage 1 through stage 4 chronic kidney disease, or unspecified chronic kidney disease; D68.59 Other primary thrombophilia; I50.32 Chronic diastolic (congestive) heart failure; N39.0 Urinary tract infection, site not specified; E11.22 Type 2 diabetes mellitus with diabetic chronic kidney disease; N18.9 Chronic kidney disease, unspecified; Z79.4 Long term (current) use of insulin; B96.20 Unspecified Escherichia coli [E. coli] as the cause of diseases classified elsewhere; D64.9 Anemia, unspecified; E03.9 Hypothyroidism, unspecified; E66.9 Obesity, unspecified; E78.5 Hyperlipidemia, unspecified; J44.9 Chronic obstructive pulmonary disease, unspecified; Z79.01 Long term (current) use of anticoagulants; Z86.718 Personal history of other venous thrombosis and embolism; Z87.440 Personal history of urinary (tract) infections; Z87.891 Personal history of nicotine dependence; Z95.1 Presence of aortocoronary bypass graft; Z86.73 Personal history of transient ischemic attack (TIA), and cerebral infarction without residual deficits; Z79.899 Other long term (current) drug therapy; Z85.118 Personal history of other malignant neoplasm of bronchus and lung; Z95.0 Presence of cardiac pacemaker; N40.0 Benign prostatic hyperplasia without lower urinary tract symptoms; N28.1 Cyst of kidney, acquired; M19.90 Unspecified osteoarthritis, unspecified site; I48.91 Unspecified atrial fibrillation; I25.10 Atherosclerotic heart disease of native coronary artery without angina pectoris; I25.2 Old myocardial infarction; E11.51 Type 2 diabetes mellitus with diabetic peripheral angiopathy without gangrene; R53.1 Weakness; Z74.09 Other reduced mobility; Z68.28 Body mass index [BMI] 28.0-28.9, adult; Z90.2 Acquired absence of lung [part of]; E11.65 Type 2 diabetes mellitus with hyperglycemia; Z79.890 Hormone replacement therapy; R23.8 Other skin changes; Z20.822 Contact with and (suspected) exposure to COVID-19
CPT/HCPCS: 36415; 71045; 83735; 84100; 84156; 84300; 84484; 85025; 85730; 87040; 87077; 87086; 93005; 93307; 97161; A4663; C1758; G0378; J0696; J1650; J1815; J1956; J8499

== ENCOUNTER 2021-12-25 20:07 | Inpatient (IN) | payer MEDICARE, OTHER ==
[~2021-12-25] VITALS: Ht 177.8 cm; Wt 90.7 kg
--- NOTE | 2021-12-25 19:15 | NUR ---
Received admission report from Am nurse.
[~2021-12-25 20:07] MED LIST changes: -ACET-73 PO; -ACET325S8 INH; +ACET325T53 PO; +ALLO100T PO; -AMIO200T6 PO; -AMLO-212 PO; -AMLO2.5T4 PO; +APIX2.5T PO; -ASPI81TA31 PO; -BLOO-296 MC; -BLOO1EAC70 MC; +CARV25TA2 PO; +CEPH250C PO; +CLON0.1T PO; -CLON0.3P TD; +DEXT50DI8 IV; +DULA0.75 SQ; -FEBU40TA PO; +FERR325T28 PO; +FLUT1BLS INH; +FLUT1BLS6 IH; -FOLI0.8T3 PO; +FOLI0.8T41 PO; -FOLI1CAP7 PO; +FURO-152 PO; +FURO20TA4 PO; -INSU100I14 SQ; -INSU100I14 SUBCUT; +INSU100V11 SUBCUT; +INSU100V28 SQ; +INSU100V7 SQ; -LEVO150T8 PO; -LEVO175T7 PO; +LEVO25TA9 PO; +NIFE90TA2 PO; -PREG25CA PO; +PREG50CA PO; -PREG75CA PO; -RIVA10TA PO; -SIMV-46 PO; -TAMS-3 PO; -TAMS0.4C34 PO; -UMEC1BLS IH
--- NOTE | 2021-12-25 20:07 | NUR ---
Awake , lying comfortably in bed while watching TV. In no apparent distress with continuos O2 at 2L/min via NC. Presented no complaint at this time. Able to move/reposition himself independently in bed. Routine admission care done. Plan of care initiated. Safety measures and fall prevention initiated. VS stable.
[2021-12-25 20:47] VITALS: BP 132/54
[2021-12-25] MEDS ORDERED: CLOP75TA15 PO (21:12)
[2021-12-25] MEDS ORDERED: ACET-2154 PO (21:12)
[2021-12-25] MEDS ORDERED: CEPH250C PO (21:12)
[2021-12-25] MEDS ORDERED: LEVO150T8 PO (21:12)
[2021-12-25] MEDS ORDERED: FURO20TA4 PO (21:12)
[2021-12-25] MEDS ORDERED: FLUT1BLS IH (21:12)
[2021-12-25] MEDS ORDERED: FOLI0.8T2 GT (21:12)
[2021-12-25] MEDS ORDERED: PREG50CA PO (21:12)
[2021-12-25] MEDS ORDERED: CARV25TA2 PO (21:12)
[2021-12-25] MEDS ORDERED: DEXTROSE 50% 50 ML DISP.SYRIN IV PRN (21:15)
[2021-12-25] MEDS: REMEDY ESSENTIAL ZINC PASTE 113 GM TOP SCH (21:20)
[2021-12-25] MEDS ORDERED: APIX2.5T PO (21:54)
[2021-12-25] MEDS ORDERED: DUTA0.5C PO (21:54)
[2021-12-25] MEDS ORDERED: ALLO100T PO (21:54)
[2021-12-25] MEDS ORDERED: AMIO200T5 PO (21:54)
[2021-12-25] MEDS ORDERED: NIFE90TA2 PO (21:54)
[2021-12-25] MEDS ORDERED: INSU100V7 SQ (21:54)
[2021-12-25] MEDS ORDERED: DOCU250C14 PO (21:54)
[2021-12-25] MEDS ORDERED: ACETAMINOPHEN 325 MG TABLET PO PRN (22:45)
[2021-12-26 04:37] VITALS: BP 145/55
--- NOTE | 2021-12-26 05:50 | NUR ---
Cephalexin 250 mg po due for 0600 was not given. Invoice Classification Clerk claimed she can not get it for now. Will endorse to oncoming nurse.
[2021-12-26] MEDS ORDERED: CEphaleXIN 250 MG CAPSULE PO SCH (06:00)
[2021-12-26] MEDS: BLOOD SUGAR DIAGNOSTIC 1 EACH STRIP VI SCH (06:07)
[2021-12-26] MEDS: LEVOTHYROXINE SODIUM 150 MCG TABLET PO SCH (06:24)
[2021-12-26 07:31] VITALS: BP 135/60
[2021-12-26] MEDS ORDERED: AMIO200T6 PO (09:34)
[2021-12-26] MEDS: FERROUS SULFATE 325 MG TABEC PO SCH (10:17)
[2021-12-26] MEDS: FOLIC ACID/VITAMIN B COMP W-C TABLET GT SCH (10:17)
[2021-12-26] MEDS: ALLOPURINOL 100 MG TABLET PO SCH (10:18)
[2021-12-26] MEDS: NIFEdipine XL 90 MG TABSR PO SCH (10:18)
[2021-12-26] MEDS: AMIODARONE HCL 200 MG TABLET PO SCH (10:18)
[2021-12-26] MEDS: CLOPIDOGREL 75 MG TABLET PO SCH (10:18)
[2021-12-26] MEDS: PREGABALIN 50 MG CAPSULE PO SCH ×3 (10:18→17:34)
[2021-12-26] MEDS: DUTASTERIDE 0.5 MG CAPSULE PO SCH (10:19)
[2021-12-26] MEDS: DOCUSATE SODIUM 250 MG CAPSULE PO SCH ×2 (10:19→17:34)
[2021-12-26] MEDS: CARVEDILOL 25 MG TABLET PO SCH ×2 (10:21→17:34)
[2021-12-26] MEDS: APIXABAN 2.5 MG TABLET PO SCH ×2 (10:23→17:34)
[2021-12-26] MEDS: REMEDY ESSENTIAL ZINC PASTE 113 GM TOP SCH ×2 (10:26→20:52)
[2021-12-26] MEDS: FLUTICASONE/VILANTEROL 1 EACH BLST.W.DEV IH SCH (10:39)
[2021-12-26] MEDS: CEphaleXIN 250 MG CAPSULE PO SCH ×3 (10:39→20:52)
[2021-12-26 16:00] VITALS: BP 145/54
[2021-12-26 20:21] VITALS: BP 127/51
[2021-12-26] MEDS: INSULIN REGULAR, HUMAN 300 UNIT/3 ML VIAL SQ PRN (20:39)
[2021-12-26] MEDS: INSULIN GLARGINE,HUM 300 UNITS/3 ML CARTRIDGE SQ SCH (20:51)
[2021-12-27 04:32] VITALS: BP 128/77
[2021-12-27] MEDS: CEphaleXIN 250 MG CAPSULE PO SCH ×3 (05:32→21:54)
[2021-12-27] MEDS: BLOOD SUGAR DIAGNOSTIC 1 EACH STRIP VI SCH ×4 (06:03→21:59)
[2021-12-27] MEDS: LEVOTHYROXINE SODIUM 150 MCG TABLET PO SCH (06:03)
--- NOTE | 2021-12-27 06:29 | NUR ---
Patient remained stable during the shift. No acute distress identified. BS reading at the start of the shift was 186mg/dL, insulin per sliding scale given as ordered. Noted with BS 80mg/dL at the end of the shift. Patient denies discomfort. All needs attended. All due meds given. kept call light within reach. Will endorse to the next shift for continuity of care.
[2021-12-27 06:37] LABS: HEMATOCRIT 33.1 % (36.7-47.1); MEAN CORPUSCULAR VOLUME 90.6 fL (73.0-96.2); PLATELET COUNT (AUTO) 197 K/uL (152-348)
[2021-12-27 07:19] LABS: ALANINE AMINOTRANSFERASE 20 U/L (16-63); ALKALINE PHOSPHATASE 49 U/L (50-136); ASPARTATE AMINOTRANSFERASE 13 U/L (15-37); BILIRUBIN,TOTAL 0.2 mg/dL (0.2-1.0); CARBON DIOXIDE 33 mmol/L (21-32); CHLORIDE 106 mmol/L (98-107); CREATININE 2.1 mg/dL (0.6-1.3); GLUCOSE 82 mg/dL (74-106); MAGNESIUM 2.4 mg/dL (1.8-2.4); PHOSPHOROUS 3.6 mg/dL (2.5-4.9); POTASSIUM 4.5 mmol/L (3.5-5.1); TOTAL PROTEIN, SERUM 6.6 g/dL (6.4-8.2); UREA NITROGEN, BLOOD 68 mg/dL (7-18)
[2021-12-27] MEDS: DUTASTERIDE 0.5 MG CAPSULE PO SCH (09:23)
[2021-12-27] MEDS: FERROUS SULFATE 325 MG TABEC PO SCH (09:23)
[2021-12-27] MEDS: PREGABALIN 50 MG CAPSULE PO SCH ×3 (09:23→17:31)
[2021-12-27] MEDS: CLOPIDOGREL 75 MG TABLET PO SCH (09:24)
[2021-12-27] MEDS: CARVEDILOL 25 MG TABLET PO SCH ×2 (09:24→17:31)
[2021-12-27] MEDS: NIFEdipine XL 90 MG TABSR PO SCH (09:24)
[2021-12-27] MEDS: ALLOPURINOL 100 MG TABLET PO SCH (09:24)
[2021-12-27] MEDS: DOCUSATE SODIUM 250 MG CAPSULE PO SCH ×2 (09:25→16:56)
[2021-12-27] MEDS: APIXABAN 2.5 MG TABLET PO SCH ×2 (09:25→16:58)
[2021-12-27] MEDS: AMIODARONE HCL 200 MG TABLET PO SCH (09:27)
[2021-12-27] MEDS: REMEDY ESSENTIAL ZINC PASTE 113 GM TOP SCH ×2 (09:27→21:59)
[2021-12-27] MEDS: FOLIC ACID/VITAMIN B COMP W-C TABLET GT SCH (09:27)
[2021-12-27] MEDS: FLUTICASONE/VILANTEROL 1 EACH BLST.W.DEV IH SCH (09:27)
[2021-12-27 09:36] VITALS: BP 145/58
[2021-12-27 18:08] VITALS: BP 159/60
--- NOTE | 2021-12-27 19:15 | NUR ---
Received patient on bed, alert and oriented x3, not in respiratory distress, denies pain at this time. Safety precautions provided, call light placed within reach.
[2021-12-27 20:09] VITALS: BP 148/54
[2021-12-27] MEDS: INSULIN GLARGINE,HUM 300 UNITS/3 ML CARTRIDGE SQ SCH (21:57)
[2021-12-27] MEDS: INSULIN REGULAR, HUMAN 300 UNIT/3 ML VIAL SQ PRN (21:59)
[2021-12-28 04:09] VITALS: BP 144/59
--- NOTE | 2021-12-28 05:58 | NUR ---
Slept well, no complaint of pain, no shortness of breath noted, with oxygen on and off at 2L via NC, saturating at 97%. Patient in fair condition.
[2021-12-28] MEDS: LEVOTHYROXINE SODIUM 150 MCG TABLET PO SCH (06:29)
[2021-12-28] MEDS: CEphaleXIN 250 MG CAPSULE PO SCH ×3 (06:29→21:54)
[2021-12-28] MEDS: BLOOD SUGAR DIAGNOSTIC 1 EACH STRIP VI SCH ×4 (06:36→20:29)
[2021-12-28 06:44] LABS: *BILIRUBIN,URIN NEGATIVE (NEGATIVE); *BLOOD, URINE NEGATIVE (NEGATIVE); *CLARITY,URINE CLEAR (CLEAR); *COLOR,URINE YELLOW (YELLOW); *KETONES,URINE NEGATIVE (NEGATIVE); *UROBILINOGEN,URINE 0.2 E.U./dl (NORMAL); LEUKOCYTE ESTERASE ,URINE NEGATIVE (NEGATIVE); NITRITE, URINE NEGATIVE (NEGATIVE); UGLUCOSE NEGATIVE (NEGATIVE)
[2021-12-28 06:45] LABS: HEMATOCRIT 33.4 % (36.7-47.1); MEAN CORPUSCULAR HEMOGLOBIN 29.8 uug (23.8-33.4); MEAN CORPUSCULAR VOLUME 90.4 fL (73.0-96.2); PLATELET COUNT (AUTO) 226 K/uL (152-348)
[2021-12-28 07:06] LABS: CARBON DIOXIDE 29 mmol/L (21-32); CHLORIDE 106 mmol/L (98-107); CHOLESTEROL 165 mg/dL (<200); CREATININE 2.1 mg/dL (0.6-1.3); GLUCOSE 112 mg/dL (74-106); HDL CHOLESTEROL 48 mg/dL (40-60); MAGNESIUM 2.1 mg/dL (1.8-2.4); PHOSPHOROUS 3.9 mg/dL (2.5-4.9); POTASSIUM 4.1 mmol/L (3.5-5.1); TRIGLYCERIDES 133 MG/DL (30-150); UREA NITROGEN, BLOOD 63 mg/dL (7-18)
[2021-12-28 07:18] LABS: THYROID STIMULATING HORMONE 4.329 mIU/mL (0.358-3.740)
[2021-12-28 07:21] LABS: IRON, SERUM 66 ug/dL (50-175)
[2021-12-28 07:32] VITALS: BP 141/58
[2021-12-28] MEDS: DOCUSATE SODIUM 250 MG CAPSULE PO SCH ×3 (09:00→16:40)
--- NOTE | 2021-12-28 09:00 | NUR ---
Pt refused colace. Pt states and explained that he just had BM last HS.
[2021-12-28] MEDS: CLOPIDOGREL 75 MG TABLET PO SCH (09:11)
[2021-12-28] MEDS: PREGABALIN 50 MG CAPSULE PO SCH ×3 (09:11→16:41)
[2021-12-28] MEDS: FOLIC ACID/VITAMIN B COMP W-C TABLET GT SCH (09:11)
[2021-12-28] MEDS: APIXABAN 2.5 MG TABLET PO SCH ×2 (09:12→16:41)
[2021-12-28] MEDS: DUTASTERIDE 0.5 MG CAPSULE PO SCH (09:12)
[2021-12-28] MEDS: NIFEdipine XL 90 MG TABSR PO SCH (09:12)
[2021-12-28] MEDS: REMEDY ESSENTIAL ZINC PASTE 113 GM TOP SCH ×2 (09:13→20:21)
[2021-12-28] MEDS: ALLOPURINOL 100 MG TABLET PO SCH (09:13)
[2021-12-28] MEDS: CARVEDILOL 25 MG TABLET PO SCH ×2 (09:13→16:41)
[2021-12-28] MEDS: AMIODARONE HCL 200 MG TABLET PO SCH (09:14)
[2021-12-28] MEDS: FLUTICASONE/VILANTEROL 1 EACH BLST.W.DEV IH SCH (09:14)
[2021-12-28] MEDS: FERROUS SULFATE 325 MG TABEC PO SCH (09:19)
[2021-12-28] MEDS: INSULIN REGULAR, HUMAN 300 UNIT/3 ML VIAL SQ PRN ×3 (11:50→20:30)
--- NOTE | 2021-12-28 14:34 | NUR ---
INDIVIDUALIZED PLAN OF CARE
[2021-12-28 16:00] VITALS: BP 126/52
[2021-12-28 20:09] VITALS: BP 125/54
[2021-12-28] MEDS: INSULIN GLARGINE,HUM 300 UNITS/3 ML CARTRIDGE SQ SCH (20:31)
[2021-12-29 04:09] VITALS: BP 129/57
[2021-12-29] MEDS: LEVOTHYROXINE SODIUM 150 MCG TABLET PO SCH (06:17)
[2021-12-29] MEDS: BLOOD SUGAR DIAGNOSTIC 1 EACH STRIP VI SCH ×4 (06:24→20:57)
--- NOTE | 2021-12-29 06:33 | NUR ---
uneventful night. Slept good. No complaint presented all night. Safety measures and fall prevention maintained. Continue rehab care as planned.
[2021-12-29 07:33] VITALS: BP 138/53
[2021-12-29] MEDS: ALLOPURINOL 100 MG TABLET PO SCH (08:43)
[2021-12-29] MEDS: CLOPIDOGREL 75 MG TABLET PO SCH (08:43)
[2021-12-29] MEDS: FOLIC ACID/VITAMIN B COMP W-C TABLET GT SCH (08:43)
[2021-12-29] MEDS: PREGABALIN 50 MG CAPSULE PO SCH ×3 (08:43→17:02)
[2021-12-29] MEDS: AMIODARONE HCL 200 MG TABLET PO SCH (08:44)
[2021-12-29] MEDS: NIFEdipine XL 90 MG TABSR PO SCH (08:44)
[2021-12-29] MEDS: APIXABAN 2.5 MG TABLET PO SCH ×2 (08:46→17:03)
[2021-12-29] MEDS: DOCUSATE SODIUM 250 MG CAPSULE PO SCH ×2 (08:55→17:00)
[2021-12-29] MEDS: FERROUS SULFATE 325 MG TABEC PO SCH (08:55)
[2021-12-29] MEDS: DUTASTERIDE 0.5 MG CAPSULE PO SCH (08:55)
[2021-12-29] MEDS: CARVEDILOL 25 MG TABLET PO SCH ×2 (08:58→17:02)
[2021-12-29] MEDS: FLUTICASONE/VILANTEROL 1 EACH BLST.W.DEV IH SCH (09:01)
[2021-12-29] MEDS: REMEDY ESSENTIAL ZINC PASTE 113 GM TOP SCH ×2 (09:02→20:30)
--- NOTE | 2021-12-29 10:00 | NUR ---
PATIENT IS TOLERATED PHYSICAL THERAPY WELL SEEN AND EXAMINED BY DR EDILMA ABDALLA WITH NO NEW ORDERS AT THIS TIME.ALERT AND ORIENTED AND ABLE TO MAKE NEEDS KNOWN DENIES PAIN OR DISCOMFORTS AT THIS TIME CALL LIGHTS AND PERSONAL BELONGINGS ARE WITHIN EASY REACH MADE COMFORTABLE AND WILL CONTINUE TO OBSERVE
[2021-12-29] MEDS: INSULIN REGULAR, HUMAN 300 UNIT/3 ML VIAL SQ PRN ×2 (12:19→21:00)
[2021-12-29 15:52] VITALS: BP 142/57
--- NOTE | 2021-12-29 18:45 | NUR ---
RESTING NO C/O NOTED AT THIS TIME
[2021-12-29 20:35] VITALS: BP 131/57
[2021-12-29] MEDS: INSULIN GLARGINE,HUM 300 UNITS/3 ML CARTRIDGE SQ SCH (20:59)
[2021-12-30 04:49] VITALS: BP 130/58
[2021-12-30] MEDS: BLOOD SUGAR DIAGNOSTIC 1 EACH STRIP VI SCH ×4 (05:32→20:58)
[2021-12-30] MEDS: LEVOTHYROXINE SODIUM 150 MCG TABLET PO SCH (06:12)
[2021-12-30 07:32] VITALS: BP 133/53
[2021-12-30] MEDS: DOCUSATE SODIUM 250 MG CAPSULE PO SCH ×2 (09:00→16:48)
[2021-12-30] MEDS: FERROUS SULFATE 325 MG TABEC PO SCH (09:57)
[2021-12-30] MEDS: FOLIC ACID/VITAMIN B COMP W-C TABLET GT SCH (09:57)
[2021-12-30] MEDS: PREGABALIN 50 MG CAPSULE PO SCH ×3 (09:57→16:48)
[2021-12-30] MEDS: CLOPIDOGREL 75 MG TABLET PO SCH (09:57)
[2021-12-30] MEDS: AMIODARONE HCL 200 MG TABLET PO SCH (09:57)
[2021-12-30] MEDS: DUTASTERIDE 0.5 MG CAPSULE PO SCH (09:57)
[2021-12-30] MEDS: CARVEDILOL 25 MG TABLET PO SCH ×2 (09:58→16:48)
[2021-12-30] MEDS: NIFEdipine XL 90 MG TABSR PO SCH (09:58)
[2021-12-30] MEDS: ALLOPURINOL 100 MG TABLET PO SCH (09:58)
[2021-12-30] MEDS: APIXABAN 2.5 MG TABLET PO SCH ×2 (09:59→16:49)
[2021-12-30] MEDS: FLUTICASONE/VILANTEROL 1 EACH BLST.W.DEV IH SCH (10:00)
[2021-12-30] MEDS: REMEDY ESSENTIAL ZINC PASTE 113 GM TOP SCH ×2 (10:00→20:56)
--- NOTE | 2021-12-30 10:11 | NUR ---
INTERDISCIPLINARY TEAM CONFERENCE
[2021-12-30] MEDS: INSULIN REGULAR, HUMAN 300 UNIT/3 ML VIAL SQ PRN ×2 (11:53→20:59)
[2021-12-30 16:00] VITALS: BP 130/55
[2021-12-30 20:11] VITALS: BP 119/62
[2021-12-30] MEDS: INSULIN GLARGINE,HUM 300 UNITS/3 ML CARTRIDGE SQ SCH (21:00)
[2021-12-31 04:25] VITALS: BP 114/55
[2021-12-31] MEDS: LEVOTHYROXINE SODIUM 150 MCG TABLET PO SCH (06:06)
[2021-12-31] MEDS: BLOOD SUGAR DIAGNOSTIC 1 EACH STRIP VI SCH ×4 (06:06→21:21)
--- NOTE | 2021-12-31 06:26 | NUR ---
Slept well. No s/s of hypo/hyperglycemia.
[2021-12-31 08:00] VITALS: BP 120/64
[2021-12-31] MEDS: ALLOPURINOL 100 MG TABLET PO SCH (09:14)
[2021-12-31] MEDS: CLOPIDOGREL 75 MG TABLET PO SCH (09:14)
[2021-12-31] MEDS: FERROUS SULFATE 325 MG TABEC PO SCH (09:14)
[2021-12-31] MEDS: FOLIC ACID/VITAMIN B COMP W-C TABLET GT SCH (09:14)
[2021-12-31] MEDS: PREGABALIN 50 MG CAPSULE PO SCH ×3 (09:14→16:31)
[2021-12-31] MEDS: DOCUSATE SODIUM 250 MG CAPSULE PO SCH ×2 (09:14→16:37)
[2021-12-31] MEDS: DUTASTERIDE 0.5 MG CAPSULE PO SCH (09:14)
[2021-12-31] MEDS: AMIODARONE HCL 200 MG TABLET PO SCH (09:15)
[2021-12-31] MEDS: NIFEdipine XL 90 MG TABSR PO SCH (09:16)
[2021-12-31] MEDS: APIXABAN 2.5 MG TABLET PO SCH ×2 (09:16→16:33)
[2021-12-31] MEDS: CARVEDILOL 25 MG TABLET PO SCH ×2 (09:17→16:32)
[2021-12-31] MEDS: REMEDY ESSENTIAL ZINC PASTE 113 GM TOP SCH ×2 (09:18→21:12)
[2021-12-31] MEDS: FLUTICASONE/VILANTEROL 1 EACH BLST.W.DEV IH SCH (09:18)
[2021-12-31 16:09] VITALS: BP 129/55
--- NOTE | 2021-12-31 18:50 | NUR ---
Patient remains alert, oriented x 4, not in any form of distress, on room air. He denies any pain or discomfort. Patient is complaint with medications and care. No noted signs or symptoms of hypo/hyperglycemia. Assisted with his needs promptly. Call light and frequently used items placed within patient's reach.
[2021-12-31 20:09] VITALS: BP 134/56
[2021-12-31] MEDS: INSULIN GLARGINE,HUM 300 UNITS/3 ML CARTRIDGE SQ SCH (21:25)
[2022-01-01 04:09] VITALS: BP 140/54
--- NOTE | 2022-01-01 05:35 | NUR ---
Received to care, last night, lying in bed, pleasant upon approach. Call light in reach, no distress noted. Slept well all night without any problems.
[2022-01-01] MEDS: LEVOTHYROXINE SODIUM 150 MCG TABLET PO SCH (06:14)
[2022-01-01] MEDS: BLOOD SUGAR DIAGNOSTIC 1 EACH STRIP VI SCH ×4 (06:27→20:38)
[2022-01-01 08:22] VITALS: BP 148/61
[2022-01-01] MEDS: DOCUSATE SODIUM 250 MG CAPSULE PO SCH ×2 (10:04→10:14)
[2022-01-01] MEDS: ALLOPURINOL 100 MG TABLET PO SCH (10:04)
[2022-01-01] MEDS: FERROUS SULFATE 325 MG TABEC PO SCH (10:04)
[2022-01-01] MEDS: DUTASTERIDE 0.5 MG CAPSULE PO SCH (10:04)
[2022-01-01] MEDS: CLOPIDOGREL 75 MG TABLET PO SCH (10:04)
[2022-01-01] MEDS: FOLIC ACID/VITAMIN B COMP W-C TABLET GT SCH (10:05)
[2022-01-01] MEDS: APIXABAN 2.5 MG TABLET PO SCH ×2 (10:05→17:12)
[2022-01-01] MEDS: PREGABALIN 50 MG CAPSULE PO SCH ×3 (10:05→17:11)
[2022-01-01] MEDS: NIFEdipine XL 90 MG TABSR PO SCH (10:09)
[2022-01-01] MEDS: CARVEDILOL 25 MG TABLET PO SCH ×2 (10:09→17:17)
[2022-01-01] MEDS: AMIODARONE HCL 200 MG TABLET PO SCH (10:09)
[2022-01-01] MEDS: FLUTICASONE/VILANTEROL 1 EACH BLST.W.DEV IH SCH (10:10)
[2022-01-01] MEDS: REMEDY ESSENTIAL ZINC PASTE 113 GM TOP SCH ×2 (10:14→20:27)
[2022-01-01 16:25] VITALS: BP 135/69
--- NOTE | 2022-01-01 19:55 | NUR ---
Received patient in bed awake, alert and oriented x 4. No respiratory distress noted. No c/o pain at this time. Call light within easy reach and instructed. Bed in locked and low position.
[2022-01-01 20:10] VITALS: BP 113/52
[2022-01-01] MEDS: INSULIN REGULAR, HUMAN 300 UNIT/3 ML VIAL SQ PRN (20:30)
[2022-01-01] MEDS: INSULIN GLARGINE,HUM 300 UNITS/3 ML CARTRIDGE SQ SCH (20:31)
[2022-01-02 04:56] VITALS: BP 110/54
[2022-01-02] MEDS: LEVOTHYROXINE SODIUM 150 MCG TABLET PO SCH (06:06)
[2022-01-02] MEDS: BLOOD SUGAR DIAGNOSTIC 1 EACH STRIP VI SCH ×4 (06:46→20:33)
--- NOTE | 2022-01-02 06:54 | NUR ---
Patient slept well, easy to arouse. Skin is dry and warm to touch, no noted signs of hypo/hyperglycemia. No noted acute distress. Needs attended and anticipated.
--- NOTE | 2022-01-02 08:00 | NUR ---
RECEIVED PT ON BED SLEEPING. VITALS WNL. ON ROOM AIR SATURATING 97%. IV ACCESS ON R WRIST 20G INTACT AND PATENT. HAD A BM YESTERDAY PER NOC SHIFT NURSE.
[2022-01-02 08:05] VITALS: BP 130/48
[2022-01-02] MEDS: DUTASTERIDE 0.5 MG CAPSULE PO SCH (09:10)
[2022-01-02] MEDS: NIFEdipine XL 90 MG TABSR PO SCH (09:10)
[2022-01-02] MEDS: APIXABAN 2.5 MG TABLET PO SCH ×2 (09:11→17:50)
[2022-01-02] MEDS: PREGABALIN 50 MG CAPSULE PO SCH ×3 (09:11→17:49)
[2022-01-02] MEDS: FERROUS SULFATE 325 MG TABEC PO SCH (09:12)
[2022-01-02] MEDS: DOCUSATE SODIUM 250 MG CAPSULE PO SCH ×2 (09:12→17:00)
[2022-01-02] MEDS: FOLIC ACID/VITAMIN B COMP W-C TABLET GT SCH (09:12)
[2022-01-02] MEDS: CARVEDILOL 25 MG TABLET PO SCH ×2 (09:12→17:49)
[2022-01-02] MEDS: AMIODARONE HCL 200 MG TABLET PO SCH (09:12)
[2022-01-02] MEDS: ALLOPURINOL 100 MG TABLET PO SCH (09:12)
[2022-01-02] MEDS: CLOPIDOGREL 75 MG TABLET PO SCH (09:12)
[2022-01-02] MEDS: FLUTICASONE/VILANTEROL 1 EACH BLST.W.DEV IH SCH (09:13)
[2022-01-02] MEDS: REMEDY ESSENTIAL ZINC PASTE 113 GM TOP SCH ×2 (09:21→20:25)
[2022-01-02 13:33] VITALS: BP 117/49
[2022-01-02 16:02] VITALS: BP 133/61
--- NOTE | 2022-01-02 18:49 | NUR ---
ALL VITALS WNL. TOLERATED PT WELL. ATE 80-90% OF LUNCH AND DINNER. PT IS RELAX AND RESTING ON BED.
[2022-01-02 20:19] VITALS: BP 115/49
[2022-01-02] MEDS: INSULIN GLARGINE,HUM 300 UNITS/3 ML CARTRIDGE SQ SCH (20:28)
[2022-01-02] MEDS: INSULIN REGULAR, HUMAN 300 UNIT/3 ML VIAL SQ PRN (20:30)
[2022-01-03 04:28] VITALS: BP 103/48
[2022-01-03] MEDS: LEVOTHYROXINE SODIUM 150 MCG TABLET PO SCH (06:00)
[2022-01-03] MEDS: BLOOD SUGAR DIAGNOSTIC 1 EACH STRIP VI SCH ×4 (06:31→20:26)
[2022-01-03 08:00] VITALS: BP 124/52
[2022-01-03] MEDS: PREGABALIN 50 MG CAPSULE PO SCH ×3 (08:59→17:15)
[2022-01-03] MEDS: DUTASTERIDE 0.5 MG CAPSULE PO SCH (09:00)
[2022-01-03] MEDS: FERROUS SULFATE 325 MG TABEC PO SCH (09:00)
[2022-01-03] MEDS: FOLIC ACID/VITAMIN B COMP W-C TABLET GT SCH (09:00)
[2022-01-03] MEDS: CARVEDILOL 25 MG TABLET PO SCH ×2 (09:01→17:11)
[2022-01-03] MEDS: AMIODARONE HCL 200 MG TABLET PO SCH (09:01)
[2022-01-03] MEDS: DOCUSATE SODIUM 250 MG CAPSULE PO SCH ×2 (09:02→17:09)
[2022-01-03] MEDS: ALLOPURINOL 100 MG TABLET PO SCH (09:02)
[2022-01-03] MEDS: CLOPIDOGREL 75 MG TABLET PO SCH (09:02)
[2022-01-03] MEDS: FLUTICASONE/VILANTEROL 1 EACH BLST.W.DEV IH SCH (09:02)
[2022-01-03] MEDS: NIFEdipine XL 90 MG TABSR PO SCH (09:02)
[2022-01-03] MEDS: APIXABAN 2.5 MG TABLET PO SCH ×2 (09:04→17:09)
[2022-01-03] MEDS: REMEDY ESSENTIAL ZINC PASTE 113 GM TOP SCH ×2 (09:05→20:26)
[2022-01-03 16:42] VITALS: BP 130/56
[2022-01-03 20:06] VITALS: BP 136/52
[2022-01-03] MEDS: INSULIN GLARGINE,HUM 300 UNITS/3 ML CARTRIDGE SQ SCH (20:32)
[2022-01-03] MEDS: INSULIN REGULAR, HUMAN 300 UNIT/3 ML VIAL SQ PRN (20:35)
[2022-01-04 04:06] VITALS: BP 133/52
[2022-01-04] MEDS: LEVOTHYROXINE SODIUM 150 MCG TABLET PO SCH (06:18)
[2022-01-04] MEDS: BLOOD SUGAR DIAGNOSTIC 1 EACH STRIP VI SCH ×2 (06:31→11:23)
[2022-01-04 07:32] VITALS: BP 135/56
[2022-01-04] MEDS: DUTASTERIDE 0.5 MG CAPSULE PO SCH (08:28)
[2022-01-04] MEDS: FERROUS SULFATE 325 MG TABEC PO SCH (08:28)
[2022-01-04] MEDS: FOLIC ACID/VITAMIN B COMP W-C TABLET GT SCH (08:29)
[2022-01-04] MEDS: ALLOPURINOL 100 MG TABLET PO SCH (08:29)
[2022-01-04] MEDS: DOCUSATE SODIUM 250 MG CAPSULE PO SCH (08:29)
[2022-01-04] MEDS: CLOPIDOGREL 75 MG TABLET PO SCH (08:29)
[2022-01-04] MEDS: PREGABALIN 50 MG CAPSULE PO SCH ×2 (08:29→12:18)
[2022-01-04 08:30] VITALS: BP 135/56
[2022-01-04] MEDS: AMIODARONE HCL 200 MG TABLET PO SCH (08:30)
[2022-01-04] MEDS: CARVEDILOL 25 MG TABLET PO SCH (08:30)
[2022-01-04] MEDS: NIFEdipine XL 90 MG TABSR PO SCH (08:30)
[2022-01-04] MEDS: FLUTICASONE/VILANTEROL 1 EACH BLST.W.DEV IH SCH (08:31)
[2022-01-04] MEDS: REMEDY ESSENTIAL ZINC PASTE 113 GM TOP SCH (08:31)
[2022-01-04] MEDS: APIXABAN 2.5 MG TABLET PO SCH (08:35)
[2022-01-04] MEDS: INSULIN REGULAR, HUMAN 300 UNIT/3 ML VIAL SQ PRN (11:24)
--- NOTE | 2022-01-04 13:45 | NUR ---
patient is alert, oriented x4, no sob, resp even nonlabored, skin warm and dry to touch, stable condition, ambulatory with FWW, patient stated he has all the Medications at home, no prescriptions needed, no prescription given, educations provided for all the medications patient is currently taking, insulin, patient verbalized understanding of it, instructed patient to follow up with primary care doctor and order checker. Explained to patient that he is off the lasix now but follow up with pcp for further instruction, patient stated simon has appointment on january 10, and verbalized understanding of it, belongings are accounted and signed. ID removed, no IV access on patient noted.
== END 2022-01-04 14:25 | disposition home or self-care (01) | DRG 689 ==
LOC: MERGE 20:07
PROVIDERS: ADMIT Physical Medicine & Rehabilitation Pain Medicine; ATTEND Physical Medicine & Rehabilitation Pain Medicine
DX: N12 Tubulo-interstitial nephritis, not specified as acute or chronic (principal); G93.41 Metabolic encephalopathy; I50.33 Acute on chronic diastolic (congestive) heart failure; D68.59 Other primary thrombophilia; I13.0 Hypertensive heart and chronic kidney disease with heart failure and stage 1 through stage 4 chronic kidney disease, or unspecified chronic kidney disease; R53.1 Weakness; N17.0 Acute kidney failure with tubular necrosis; B96.20 Unspecified Escherichia coli [E. coli] as the cause of diseases classified elsewhere; D64.9 Anemia, unspecified; E03.9 Hypothyroidism, unspecified; E11.22 Type 2 diabetes mellitus with diabetic chronic kidney disease; E11.51 Type 2 diabetes mellitus with diabetic peripheral angiopathy without gangrene; E11.65 Type 2 diabetes mellitus with hyperglycemia; E66.9 Obesity, unspecified; Z68.28 Body mass index [BMI] 28.0-28.9, adult; E78.5 Hyperlipidemia, unspecified; I25.10 Atherosclerotic heart disease of native coronary artery without angina pectoris; I25.2 Old myocardial infarction; I48.91 Unspecified atrial fibrillation; J44.9 Chronic obstructive pulmonary disease, unspecified; M19.90 Unspecified osteoarthritis, unspecified site; N18.9 Chronic kidney disease, unspecified; N28.1 Cyst of kidney, acquired; N40.0 Benign prostatic hyperplasia without lower urinary tract symptoms; Z85.118 Personal history of other malignant neoplasm of bronchus and lung; Z86.718 Personal history of other venous thrombosis and embolism; Z86.73 Personal history of transient ischemic attack (TIA), and cerebral infarction without residual deficits; Z87.440 Personal history of urinary (tract) infections; Z95.0 Presence of cardiac pacemaker; Z95.1 Presence of aortocoronary bypass graft; Z87.891 Personal history of nicotine dependence; K21.9 Gastro-esophageal reflux disease without esophagitis; L98.8 Other specified disorders of the skin and subcutaneous tissue
CPT/HCPCS: 36415; 83550; 83735; 84100; 84443; 85025; 97161; 97535-GO-CO; J1815; J8499